=== PATIENT | female | born 1995 | race Caucasian/White ===

== ENCOUNTER 2022-01-02 11:47 | Outpatient (CLI) | payer OTHER, SELFPAY | END 2022-01-02 11:48 | disposition home or self-care (01) | LOC: NFLDREF 11:49 | PROVIDERS: Visit Provider Obstetrics & Gynecology | DX: L08.9 Local infection of the skin and subcutaneous tissue, unspecified (principal); T14.8XXA Other injury of unspecified body region, initial encounter | CPT/HCPCS: 87070; 87186 ==

== ENCOUNTER 2023-08-26 13:13 | Outpatient (CLI) | payer OTHER, SELFPAY ==
--- NOTE | 2023-08-26 13:00 | US_ITS ---
Patient: TYLER MICHELE Facility:?[facility] Patient ID:?[id number] Site Patient ID:?[id number]. Site :?[id number] Study:?US-OB Pelvis OB TV-08/26/2023 1:52:25 PM Ordering Physician:?EDGAR AJ Final Report: INDICATION: First trimester scan, establish dates. COMPARISON: None. TECHNIQUE: Real-time lord-scale imaging of the pelvis was performed. FINDINGS: Sonographic imaging demonstrates a single living intrauterine gestation. The embryo demonstrates a regular cardiac rate measuring 178 beats per minute. The embryo`s crown-rump length measurement of 1.9 cm corresponds to a gestational age of 8 weeks 3 days with a sonographic due date of 04/03/2024. There is a normal-appearing yolk sac. There are no gross abnormalities noted within the embryo at this early state of development. The gestational sac has a normal appearance. There is no evidence of a perigestational hemorrhage. The amount of fluid within the sac appears appropriate for gestational age. The cervix is closed. The myometrium appears normal. The ovaries are of normal size. Corpus luteal cyst right ovary. There are no suspicious fluid collections noted in the cul-de-sac. IMPRESSION: Normal first trimester OB ultrasound exam. Gestational age calculated at 8 weeks 3 days with a sonographic due date of 04/03/2024. No subchorionic hemorrhage. Dictated by Rio Skelton MD @ 08/27/2023 6:59:53 AM Signed by:?Rio Skelton MD @08/27/2023 6:59:53 AM (Electronic Signature)
== END 2023-08-26 13:14 | disposition home or self-care (01) ==
LOC: US 13:14
PROVIDERS: Visit Provider Registered Nurse
DX: Z34.91 Encounter for supervision of normal pregnancy, unspecified, first trimester (principal); Z3A.08 8 weeks gestation of pregnancy
CPT/HCPCS: 76817; 86703; 86706; 86803; 86850; 86900; 86901; 87086; 87340

== ENCOUNTER 2023-08-26 14:34 | Outpatient (CLI) | payer OTHER, SELFPAY | END 2023-08-26 14:35 | disposition home or self-care (01) | PROVIDERS: Visit Provider Registered Nurse | DX: Z34.91 Encounter for supervision of normal pregnancy, unspecified, first trimester (principal) | CPT/HCPCS: 86592; 86703; 86704; 86706; 86762; 86787; 86803; 86850; 86900; 86901; 87086; 87340 ==

== ENCOUNTER 2023-11-18 13:44 | Outpatient (CLI) | payer OTHER, SELFPAY ==
--- NOTE | 2023-11-18 14:00 | CRLHL7_ITS ---
For Patients: As a result of the 21st Century Cures Act, medical imaging exams and procedure reports are released immediately into your electronic medical record. You may view this report before your referring provider. If you have questions, please contact your health care provider. OB ULTRASOUND CLINICAL HISTORY: Supervision of normal . COMPARISON: 08/26/2023. LMP: 06/29/2023. JOAQUÍN by LMP: 04/04/2024. GA: 20 w, 2 d. FINDINGS: position: Transverse. Head to maternal right. Cervix: Visualized. Technique: Transabdominal. Length of closed cervix: 4.0 cm. Placenta/cord: Anterior. Technique: Transabdominal. Placenta tip to internal OS: 9.9cm. Umbilical Cord: 3-vessel cord. Placenta insertion: Eccentric, 2.1 cm. Amniotic Fluid: 5.0 cm SDP SURVEY: Observed Structures Cerebellum: Yes. 2.1 cm; 21 w 2 d. Cisterna Magna: Yes. 3.8 mm. Nuchal Fold: Yes. 4.4 mm. Lateral Ventricle: Yes. 7.8 mm. CSP: Yes. Midline Falx: Yes. Choroid Plexus: Yes. Spine: Yes. Stomach: Yes. Abd Cord Insertion: Yes. Urinary Bladder: Yes. Kidneys: Yes. Diaphragm: Yes. Nose/lips: Yes. Orbital view: Yes. Profile: Yes. Upper Extremities: Yes. Lower Extremities: Yes. Hands: Yes. Feet: Yes. Four-Chamber Heart: Yes. LVOT: Yes. RVOT: Yes. 3VV: Yes. 3VTV: Yes. BPD: 5.1 cm. 21 w 3 d, 88%. HC: 18.4 cm. 20 w 5 d, 63%. AC: 16.4 cm. 21 w 3 d, 80%. FL: 3.5 cm. 21 w 0 d, 65%. FL/AC: 21.20%. HC/AC Ratio: 1.12. Heart rate: 137 beats per minute. age by this US: 21 w 1 d. JOAQUÍN by this US: 03/29/2024. EFW: 404.11 g. Weight: 14 oz. Percentile by JOAQUÍN: 89%. IMPRESSION: 1. Measurements are consistent with dates. Good interval growth since prior exam. 2. Normal anatomic survey. Kenny Hernández M.D. Body/Diagnostic Radiologist [email or web address] GLEN/ledy villafana/Dictated by: Kenny Hernández MD @ 11/19/2023 9:50:00 AM (Electronically Signed)
== END 2023-11-18 13:45 | disposition home or self-care (01) ==
LOC: US 13:45
PROVIDERS: Visit Provider Advanced Practice Midwife
DX: Z34.92 Encounter for supervision of normal pregnancy, unspecified, second trimester (principal); Z3A.20 20 weeks gestation of pregnancy
CPT/HCPCS: 76805

== ENCOUNTER 2024-01-13 16:29 | Outpatient (CLI) | payer OTHER, SELFPAY | END 2024-01-13 16:30 | disposition home or self-care (01) | PROVIDERS: Visit Provider Physician Assistant | DX: Z34.93 Encounter for supervision of normal pregnancy, unspecified, third trimester (principal); Z3A.28 28 weeks gestation of pregnancy | CPT/HCPCS: 80074; 86592; 86704; 86706; 87340 ==

== ENCOUNTER 2024-01-26 11:52 | Outpatient (CLI) | payer MEDICAID, SELFPAY ==
[2024-01-26] VITALS (10 sets, daily range): BP systolic 110; BP diastolic 60; PULSE 91–124; O2SAT 97–99
[2024-01-26 13:03] LABS: Appearance Urine Clear (Clear); Bilirubin Urine Negative (Negative); Blood Urine 2+ (Negative); Color Urine Yellow (Yellow); Glucose Urine 3+ (Negative); Ketones Urine Negative (Negative); Leukocyte Esterase Urine Negative (Negative); Nitrite Urine Negative (Negative); Protein Urine Trace (Negative); Specific Gravity Urine 1.015 (1.000-1.030); Urobilinogen Urine 0.2 (0.2-1.0)
[2024-01-26 13:14] LABS: Bacteria Urine Few; RBC Urine 0-2 (0-2); Squamous Epithelial Cell Urine Moderate (None-Few)
--- NOTE | 2024-01-26 14:37 | PM.OBLDTN ---
OB - Triage/Final Diagnosis Visit Information Time Seen by Provider: 14:30 Date Seen: 01/26/24 Narrative: The patient is a 28 year old 3 para 2 at 30w1d weeks gestation by LMP consistent with first tri US, who presents with back pain rated 6/10 that is constant. No fever, dysuria, vaginitis, vaginal bleeding. She has not felt any contractions and baby has had good movement. Evaluation Laboratory results: Laboratory Tests 01/26/24 01/26/24 Range/Units Unknown 13:34 Urine Color Yellow (Yellow) Urine Appearance Clear (Clear) Urine pH 7.0 (5.0-8.5) Ur Specific [place] 1.015 (1.000-1.030) Urine Protein Trace A (Negative) Urine Glucose (UA) 3+ A (Negative) Urine Ketones Negative (Negative) Urine Blood 2+ A (Negative) Urine Nitrite Negative (Negative) Urine Bilirubin Negative (Negative) Urine Urobilinogen 0.2 (0.2-1.0) Ur Leukocyte Esterase Negative (Negative) Urine RBC 0-2 (0-2) Urine WBC 2-5 (0-5) Ur Squamous Epith Cells Moderate A (None-Few) Urine Bacteria Few A (None) Lab Acknowledgement Test Added Vital signs: Vital Signs - 24 hr 01/26/24 12:05 01/26/24 12:10 01/26/24 12:15 Pulse Rate Blood Pressure Pulse Oximetry 98 98 97 01/26/24 12:16 01/26/24 12:16 01/26/24 12:20 Pulse Rate 114 H Blood Pressure 110/60 Pulse Oximetry 97 01/26/24 12:25 01/26/24 12:30 01/26/24 12:35 Pulse Rate Blood Pressure Pulse Oximetry 98 98 99 01/26/24 12:40 01/26/24 12:45 Pulse Rate Blood Pressure Pulse Oximetry 98 97 Comments: Objective: Constitutional: Alert and oriented x3, No distress, coping well Lungs: Breasth sounds clear bilaterally Heart: Rhythm regular with no murmurs, rubs, or gallops. Vital signs stable, see nurse documentation Neg CVAT-Pt states it feels better to gently tap her back Abdomen: gravid, contractions not palpable, non-tender Cervix: deferred NST: 125 bpm/moderate variability/accelerations present/decelerations absent/contractions not palpable and not felt by patient Assessment: 28 at 30w1d weeks gestation?? complicated by:??Hx Labor type: Not in labor? Category 1 FHR pattern.??? Hematuria and low back pain P: While I cannot yet rule out kidney stones, exam reveals very likely musculoskeletal pain. Encouraged heat, tylenol 1000 mg q 6 hrs prn, massage, improved posture, use of lumbar pillow at work. To consider a PT referral for low back pain in . Has follow up in clinic this Friday, so will let provider know if she would desire this then or not. We can consider US/MRI if other signs of kidney stones prn. Signs and symtpoms to report reviewed. Dillan agrees with plan and has no further questions at this time. Final Diagnosis (1) H/O section: Status: Acute (2) Low back pain during : Status: Acute (3) : Status: Acute
--- NOTE | 2024-01-26 15:05 | PC.OBNST ---
NST Note NST Note Start: 01/26/24 12:07 Freq: ONCE Status: Active Protocol: Document 01/26/24 14:57 DAVE (Rec: 01/26/24 15:04 DAVE [id number]) NST Note 3 Para (# of births) 2 EDC 04/04/24 Gestational Age In Weeks & Days 30 Weeks & 1 Days Patient Presented with Complaint(s) of Pain If Pain, describe location Back pain Appropriate for Gestational Age Yes RN Suri Scott RN Date 01/26/24 Appropriate for Gestational Age Yes ITZEL Hess RNC Date 01/26/24 OB NST charge Yes Complete NST Note via Write Note Yes The provider's electronic signature indicates the NST is reactive/appropriate for gestational age. *Note to provider: If an addendum is required, open the patient's chart and click on the note under the Nurse/Allied Health tab.
== END 2024-01-26 14:53 | disposition home or self-care (01) ==
LOC: OB OUT 11:52 → OB 11:53
PROVIDERS: Visit Provider Midwife
DX: O26.899 Other specified pregnancy related conditions, unspecified trimester (principal); M54.50 Low back pain, unspecified; Z98.891 History of uterine scar from previous surgery; Z3A.30 30 weeks gestation of pregnancy; R31.9 Hematuria, unspecified
CPT/HCPCS: 59025; 81001; 81003; 87086; G0463

== ENCOUNTER 2024-02-26 09:22 | Outpatient (CLI) | payer MEDICAID, SELFPAY ==
[2024-02-26 09:41] VITALS: PULSE 119; O2SAT 100
[2024-02-26 09:46] VITALS: PULSE 118; O2SAT 100
[2024-02-26 09:47] VITALS: BP 115/63; PULSE 114
[2024-02-26 09:50] VITALS: RESP 18; TEMP 36.8
--- NOTE | 2024-02-26 10:09 | CRLHL7_ITS ---
For Patients: As a result of the Century Cures Act, medical imaging exams and procedure reports are released immediately into your electronic medical record. You may view this report before your referring provider. If you have questions, please contact your health care provider. Indication: View placenta R/O abruption ESTIMATED DATE OF DELIVERY (JOAQUÍN): 04/04/2024 Technique: Real-time sonographic images of the pelvis were obtained transabdominally using grayscale, color, and Doppler imaging. Comparison: 11/18/2023 Findings: Cervix: Not visualized. Placenta: Posterior left. No previa. : Number: Single. Position: Cephalic. Cardiac activity: 145 BPM. Amniotic fluid: Single deepest pocket 7.8 centimeter. Impression: 1. Single live intrauterine . 2. Amniotic fluid single deepest pocket measuring 7.8 centimeter. 3. Normal sonographic appearance of the posterior left placenta. Dictated by Sebas Pinto MD @ 02/26/2024 11:56:14 AM (Electronically Signed)
--- NOTE | 2024-02-26 10:09 | CRLHL7_ITS ---
For Patients: As a result of the Cures Act, medical imaging exams and procedure reports are released immediately into your electronic medical record. You may view this report before your referring provider. If you have questions, please contact your health care provider. Indication: Abdominal pain Right sided hydronephrosis without resolution post void Technique: Multiple transverse and longitudinal sonographic grayscale images of the abdomen were obtained, supplemented with color, power, and spectral Doppler imaging. Comparison: None. Findings: Pancreas: Visualized portions normal. Liver appearance: Normal. No biliary ductal dilation. Portal vein: Patent, hepatopetal flow. CBD: Not visualized. Gallbladder: Positive sonographic Eden sign. No gallbladder wall thickening or cholelithiasis. Right kidney length: 13.5 cm. Right kidney appearance: Moderate hydronephrosis without resolution postvoid. Left kidney length: 11.1 cm. Left kidney appearance: Normal. Spleen: 14.3 cm, homogeneous in appearance. Aorta: Normal. IVC: Normal. Other findings: None. Impression: 1. Moderate right hydronephrosis without resolution postvoid; this may be physiologic secondary to . 2. Positive sonographic Eden sign without gallbladder wall thickening or cholelithiasis. Acute cholecystitis is felt to be less likely. Dictated by Sebas Pinto MD @ 02/26/2024 11:53:36 AM (Electronically Signed)
[2024-02-26 10:21] LABS: Basophils Absolute Auto 0.01 K/uL (0.00-0.30); Basophils Percent Auto 0.1 % (0.0-3.0); Eosinophils Absolute Auto 0.05 K/uL (0.00-0.50); Eosinophils Percent Auto 0.5 % (0.0-7.0); Hematocrit 34.3 % (33.0-51.0); Hemoglobin* 10.7 gm/dL (12.0-16.0); Immature Granulocytes Abs Auto 0.06 K/uL (0.00-0.30); Immature Granulocytes Pct Auto 0.6 %; Lymphocytes Percent Auto 3.7 % (20-44); Mean Corpuscular HGB Conc 31 gm/dL (32-36); Mean Corpuscular Hemoglobin 24 pg (26-34); Mean Corpuscular Volume 77 fL (80-100); Monocytes Percent Auto 6.7 % (0.0-11.0); Neutrophils Percent Auto 88.4 % (42.0-72.0); Platelet Count* 140 K/uL (140-440); RDW Coefficient of Variation % 14.9 % (11.5-15.5); Red Blood Count 4.46 m/uL (4.00-5.20); White Blood Count* 10.28 K/uL (4.50-11.00)
[2024-02-26 10:26] LABS: Slide Review Reflex No
[2024-02-26 10:28] LABS: Appearance Urine Clear (Clear); Bilirubin Urine Negative (Negative); Blood Urine Negative (Negative); Color Urine Yellow (Yellow); Glucose Urine Trace (Negative); Ketones Urine Negative (Negative); Leukocyte Esterase Urine Negative (Negative); Nitrite Urine Negative (Negative); Protein Urine Negative (Negative); Urobilinogen Urine 0.2 (0.2-1.0)
[2024-02-26 10:35] LABS: Albumin* 3.4 g/dL (3.3-5.0); Chloride* 105 mmol/L (96-114); Potassium* 3.6 mmol/L (3.6-5.1); Sodium* 133 mmol/L (135-149)
[2024-02-26 10:37] LABS: Creatinine* 0.4 mg/dL (0.5-1.5); Estimated Glomerular Filt Rate 138 ml/min
[2024-02-26 10:38] LABS: Alanine Aminotransferase* 20 U/L (4-35); Alkaline Phosphatase* 89 U/L (40-150); Anion Gap 6 mEq/L (7-15); Aspartate Amino Transferase* 31 U/L (12-35); Bilirubin Total* 0.6 mg/dL (0.1-1.5); Blood Urea Nitrogen* 5 mg/dL (5-24); Carbon Dioxide* 22 mmol/L (20-32); Glucose* 95 mg/dL (60-115); Total Protein* 6.1 g/dL (6.0-8.3)
[2024-02-26 10:39] LABS: Calcium* 9.1 mg/dL (8.4-10.6)
[2024-02-26] MEDS: ACETAMINOPHEN 500 MG TABLET 1000 MG PO (11:22)
--- NOTE | 2024-02-26 12:45 | P.OBLDTN_ITS ---
OB - Triage/Final Diagnosis Visit Information Date of evaluation: 02/26/24 Narrative: Dillan is a 28 year old 3 para 2 at 34.4 weeks gestation by LMP, who presents with complaints of bilateral pelvic pain that radiates to her mid back. This pain started this morning around 0100 when she got up to go to the bathroom. It is constant that increases with movements and has not decreased in intensity during this time. She denies signs of infection, bleeding, or leaking fluids. Has had a headache that is now improved and appreciating good movement. She denies constipation and is urinating without difficulty. Ordered a UA/UC, CBC, CMP, and U/S. Labs reassuring with UC still pending. U/S normal and pelvic U/S did show hydronephrosis that radiology felt was likely physiological related. She was reassured with these results and reactive NST. Consulted with Dr. Corcoran who was in agreement that medication was not needed at this time. Encouraged hydration and precautions given. Encouraged reevaluation if unable to urinate, increased pain, body aches, ch ills, fever, nausea, vomiting, or additional concerning symptoms. She is agreeable to this plan. Contractions tracing on TOCO but pt denies feeling them as more than an occasional tightening and doesn't feel they have increased in frequency or intensity. Evaluation Laboratory results: Laboratory Tests 02/26/24 02/26/24 02/26/24 Range/Units 11:44 10:16 10:15 WBC 10.28 (4.50-11.00) K/uL RBC 4.46 (4.00-5.20) m/uL Hgb 10.7 L (12.0-16.0) gm/dL Hct 34.3 (33.0-51.0) % MCV 77 L (80-100) fL MCH 24 L (26-34) pg MCHC 31 L (32-36) gm/dL RDW Coeff of [place] 14.9 (11.5-15.5) % Plt Count 140 (140-440) K/uL Neut % (Auto) 88.4 H (42.0-72.0) % Lymph % (Auto) 3.7 L (20-44) % [place] % (Auto) 6.7 (0.0-11.0) % Eos % (Auto) 0.5 (0.0-7.0) % Baso % (Auto) 0.1 (0.0-3.0) % Neut # (Auto) 9.10 H (1.7-7.0) K/uL Lymph # (Auto) 0.40 L (0.90-2.90) K/uL [place] # (Auto) 0.70 (0.00-0.90) K/UL Eos # (Auto) 0.05 (0.00-0.50) K/uL Baso # (Auto) 0.01 (0.00-0.30) K/uL Abs Immat Gran (auto) 0.06 (0.00-0.30) K/uL Imm/Tot Granulo (auto) 0.6 % Sodium 133 L (135-149) mmol/L Potassium 3.6 (3.6-5.1) mmol/L Chloride 105 (96-114) mmol/L Carbon Dioxide 22 (20-32) mmol/L Anion Gap 6 L (7-15) mEq/L BUN 5 (5-24) mg/dL Creatinine 0.4 L (0.5-1.5) mg/dL Estimated GFR 138 ml/min Glucose 95 (60-115) mg/dL Calcium 9.1 (8.4-10.6) mg/dL Total Bilirubin 0.6 (0.1-1.5) mg/dL AST 31 (12-35) U/L ALT 20 (4-35) U/L Alkaline Phosphatase 89 (40-150) U/L Total Protein 6.1 (6.0-8.3) g/dL Albumin 3.4 (3.3-5.0) g/dL Urine Color Yellow (Yellow) Urine Appearance Clear (Clear) Urine pH 7.0 (5.0-8.5) Ur Specific [place] 1.010 (1.000-1.030) Urine Protein Negative (Negative) Urine Glucose (UA) Trace A (Negative) Urine Ketones Negative (Negative) Urine Blood Negative (Negative) Urine Nitrite Negative (Negative) Urine Bilirubin Negative (Negative) Urine Urobilinogen 0.2 (0.2-1.0) Ur Leukocyte Esterase Negative (Negative) Urine RBC Pending Urine WBC Pending Ur Squamous Epith Cells Pending Urine Bacteria Pending Lab Acknowledgement Test Added Vital signs: Vital Signs - 24 hr 02/26/24 09:41 02/26/24 09:46 02/26/24 09:47 Temperature Pulse Rate 114 H Respiratory Rate Blood Pressure 115/63 Pulse Oximetry 100 100 02/26/24 09:50 Temperature 98.3 F Pulse Rate Respiratory Rate 18 Blood Pressure Pulse Oximetry Fetus (Single) Heart Rate Baseline: 140 Intermediate Variability: Moderate (6-25) Monitor Accelerations: Present Monitor Decelerations: None
[2024-02-26 12:55] LABS: RBC Urine 0-2 (0-2); Squamous Epithelial Cell Urine Few (None-Few); WBC Urine 0-2 (0-5)
--- NOTE | 2024-02-26 13:14 | PC.OBNST ---
NST Note NST Note Start: 02/26/24 09:24 Freq: ONCE Status: Active Protocol: Document 02/26/24 13:11 ROSE (Rec: 02/26/24 13:14 ROSE [id number]) NST Note 3 Para (# of births) 2 EDC 04/04/24 Gestational Age In Weeks & Days 34 Weeks & 4 Days Patient Presented with Complaint(s) of Pain Other Complaints Pt. presents with sudden, constant in nature, onset of abdominal/back pain that began at 0130 when up to bathroom. Pt. states any use of abdominal muscles hurts, very achy and tender. She also reports difficulty taking deep breath as it is painful. Reactive Yes Appropriate for Gestational Age Yes ITZEL Mercado Date 02/26/24 Reactive Yes Appropriate for Gestational Age Yes ITZEL Dempsey Date 02/26/24 OB NST charge Yes Complete NST Note via Write Note Yes The provider's electronic signature indicates the NST is reactive/appropriate for gestational age. *Note to provider: If an addendum is required, open the patient's chart and click on the note under the Nurse/Allied Health tab.
== END 2024-02-26 13:05 | disposition home or self-care (01) ==
LOC: OB OUT 09:22 → OB 09:22
PROVIDERS: Visit Provider Advanced Practice Midwife
DX: O47.03 False labor before 37 completed weeks of gestation, third trimester (principal); Z3A.34 34 weeks gestation of pregnancy
CPT/HCPCS: 36415; 59025; 76700; 76815; 80053; 81003; 81015; 85025; G0463; A9270

== ENCOUNTER 2024-02-28 20:26 | Observation (INO) | payer MEDICAID, SELFPAY ==
[2024-02-28 20:50] VITALS: BP 120/70; PULSE 120; RESP 18; TEMP 36.9; O2SAT 98; BMI 26.9
[2024-02-28 21:31] LABS: Appearance Urine Clear (Clear); Bilirubin Urine Negative (Negative); Blood Urine Negative (Negative); Color Urine Yellow (Yellow); Glucose Urine Negative (Negative); Ketones Urine Negative (Negative); Leukocyte Esterase Urine Negative (Negative); Nitrite Urine Negative (Negative); Protein Urine Negative (Negative); Urobilinogen Urine 0.2 (0.2-1.0)
[2024-02-28 21:32] VITALS: BP 117/70; PULSE 113; RESP 18
[2024-02-28 21:46] LABS: RBC Urine 0-2 (0-2); WBC Urine 0-2 (0-5)
--- NOTE | 2024-02-28 21:47 | ED.GENADULT ---
HPI - General Adult General Chief complaint: Back Injury/Pain Stated complaint: 34 weeks , kidney pain Time Seen by Provider: 02/28/24 21:40 History of Present Illness HPI narrative: Seen earlier this week and was diagnosed with hydronephrosis. Pain continuing today; 7 out of 10 but patient cannot take deep breathes and body aches and had a fever . Has taken tylenol at 1900 28-year-old woman presenting to the emergency department with concern I think primarily of fever. She has been evaluated recently however in the setting of 34 week for right upper quadrant abdominal and flank pain. This pain has continued and admittedly is similar to what it was on evaluation 2 days ago. This afternoon though a few hours prior to arrival head evolution of a fever measured at 101.3 but then she says she is not sure if it was accurate. However she was chilled at that time and did take 1000 mg of acetaminophen. Subsequently was a little diaphoretic and overall improved now. She is not having more nausea. It does hurt to take a deep breath in the right upper abdomen; this also is not new. Transitioning also causes pain in this area. She is not having increased swelling in her legs or pain in her legs. No cough or cold symptoms otherwise. She is not feeling anything that would be consistent with contractions. Pulses noted to be elevated on arrival. Normal blood pressure. She has had an appendectomy. Recalls little later in conversation that daughter did show up in the room last night hot and with suspected fever. Otherwise no known exposures. Evaluation 2 days ago showed what was suspected to be physiologic hydronephrosis on this right side. Urinalysis was unremarkable as were transaminases. Abdominal pain Right sided hydronephrosis without resolution post void Technique: Multiple transverse and longitudinal sonographic grayscale images of the abdomen were obtained, supplemented with color, power, and spectral Doppler imaging. Comparison: None. Findings: Pancreas: Visualized portions normal. Liver appearance: Normal. No biliary ductal dilation. Portal vein: Patent, hepatopetal flow. CBD: Not visualized. Gallbladder: Positive sonographic Eden sign. No gallbladder wall thickening or cholelithiasis. Right kidney length: 13.5 cm. Right kidney appearance: Moderate hydronephrosis without resolution postvoid. Left kidney length: 11.1 cm. Left kidney appearance: Normal. Spleen: 14.3 cm, homogeneous in appearance. Aorta: Normal. IVC: Normal. Other findings: None. Impression: 1. Moderate right hydronephrosis without resolution postvoid; this may be physiologic secondary to . 2. Positive sonographic Eden sign without gallbladder wall thickening or cholelithiasis. Acute cholecystitis is felt to be less likely. Related Data Home Medications ?Medication ?Instructions ?Recorded ?Confirmed prenat.vits,josie,[id number] 1 tab PO QDAY 01/02/22 02/10/24 magnesium 200 mg tablet 200 mg PO QDAY 08/26/23 02/10/24 Allergies Allergy/AdvReac Type Severity Reaction Status Date / Time No Known Allergies Allergy Verified 02/10/24 18:05 Review of Systems Status of ROS: Reports: 6 or more systems reviewed and unremarkable except as noted in History and below [facility] Medical History Vaginal delivery ?O80 - Encounter for full-term uncomplicated delivery (ICD-10) Wound cellulitis ?L03.90 - Cellulitis, unspecified (ICD-10) Thick meconium stained amniotic fluid ?P96.83 - Meconium staining (ICD-10) Surgical History Hx of appendectomy ?Z90.49 - Acquired absence of other specified parts of digestive tract (ICD-10) Status post emergency section ?Z98.891 - History of uterine scar from previous surgery (ICD-10) Social History What is your current living situation?: I presently have a place to live Problems where you live: no known problems In the past 12 months, utilities in danger of being shut off: no In past 12 months, lack of transportation kept you from medical appts, meetings, work, or getting things needed for daily living: no How hard is it for you to pay for the very basics like food, housing, medical care, and heating: not very hard In the past 12 mos, have been you worried that your food would run out before you had money to buy more?: never true In the past 12 mos, the food you bought just didn't last and you didn't have money to buy more?: never true Smoking Status: Never smoker How often do you have a drink containing alcohol: never AUDIT-C Alcohol total score: 0 Non-prescribed substance use: denies use Within the last year, have you been humiliated or emotionally abused in other ways by your partner or ex-partner: no How often does anyone, including family, friends and others, physically hurt you: never How often does anyone, including family, friends and others, insult or talk down to you: never How often does anyone, including family, friends and others, threaten you with harm: never How often does anyone, including family, friends and others, scream or curse at you: never Little interest or pleasure in doing things: not at all Feeling down, depressed, or hopeless: not at all Exam Narrative: Exam Narrative: Pleasant. NAD. Breathing easily. Skin is warm and dry. I do not appreciate lower extremity edema in particular; maybe ankles are little puffy. She is well-perfused. Lungs are clear. Heart in tachycardic rate with regular rhythm. Abdomen is appropriately gravid. She is quite tender in the right upper quadrant and to percussion in the right flank. Does not have generalized tenderness over the abdomen. Const: Vital Signs, click to edit/add: Vital Signs - 24 hr 02/28/24 20:50 02/28/24 21:32 02/28/24 23:00 Temperature 98.4 F Pulse Rate [Left P ulse Oximeter] 120 H 113 H 105 H Respiratory Rate 18 18 16 Blood Pressure [Ri ght Upper Arm] 120/70 117/70 123/74 Pulse Oximetry 98 100 Oxygen Delivery Me thod Room Air Room Air Room Air Documenting provider has reviewed patient's vital signs: yes Course Vital Signs Vital signs: Initial Vital Signs Temperature 98.4 F 02/28/24 20:50 Temperature Source Temporal Artery Scan 02/28/24 20:50 Pulse Rate 120 H 02/28/24 20:50 Pulse Rhythm Regular 02/28/24 20:50 Respiratory Rate 18 02/28/24 20:50 Blood Pressure 120/70 02/28/24 20:50 Blood Pressure Mean 86 02/28/24 20:50 Blood Pressure Position Sitting 02/28/24 20:50 Pulse Oximetry 98 02/28/24 20:50 Oxygen Delivery Method Room Air 02/28/24 20:50 Vital Signs Temperature 98.4 F 02/28/24 20:50 Pulse Rate 120 H 02/28/24 20:50 Respiratory Rate 18 02/28/24 20:50 Blood Pressure 120/70 02/28/24 20:50 Pulse Oximetry 98 02/28/24 20:50 Oxygen Delivery Method Room Air 02/28/24 20:50 Temperature 98.4 F 02/28/24 20:50 Pulse Rate 105 H 02/28/24 23:00 Respiratory Rate 16 02/28/24 23:00 Blood Pressure 123/74 02/28/24 23:00 Pulse Oximetry 100 02/28/24 23:00 Oxygen Delivery Method Room Air 02/28/24 23:00 Medications Administered Medications: Discontinued Medications Generic Name Dose Route Start Last Admin Trade Name Ruma PRN Reason Stop Dose Admin Oxycodone HCl 7.5 mg 02/28/24 23:23 02/28/24 23:32 Oxycodone 5 Mg Tablet PO 02/28/24 23:24 7.5 mg ONCE ONE Administration Medical Decision Making MDM Narrative Medical decision making narrative: Discomfort does not appear to be uterine. I would not think endometritis though does have a fever. Differential still includes cholecystitis, I suppose perihepatic bleed, ureteral stone, pain related to hydronephrosis that is physiologic, urinary tract infection/pyelonephritis particularly in light of fever. Nonspecific viral illness or COVID, low right-sided pneumonia, pulmonary embolus? There was a question of preeclampsia but I do not see criteria for that in vitals. OB nursing here monitoring . Reviewed monitoring strips. Reassuring. Ordered initial labs. Would have concern about maintaining renal function. Would also evaluate for further evidence of cholecystitis perhaps. Did discuss this case with OB on-call who is familiar. Urinalysis was clear as was prior. I think less likely that there is a hidden ureteral stone. Does not appear to be a pyelonephritis either. Labs return with approximally doubled transaminases from 2 days ago. This is likely within normal limits but with location of pain and this fever I think it warrants a repeat limited abdominal ultrasound. Prior to this had discuss further pain management. Dillan is reluctant to treat for pain also noting that she already took a 1000 mg of acetaminophen. After longer discussion she does agree that perhaps opiate pain medication here might be beneficial. Ordered for 7.5 mg oxycodone Was not particularly helped with this oxycodone. Furthermore begins to feel chilled again. Preliminary opinion as discussed with compensation vice president during ultrasound in process notes continued hydronephrosis but no other inflammatory changes in the right upper abdomen Recheck of temperature of 100.7?. Would contemplate admission at this point. Have requested chest x-ray as well if this might be a right lower lung pneumonia the might be contributing some pleuritic discomfort in this recurrent fever. Will be discussing further with OB for potential admission. Medical Records Medical records reviewed: Yes I reviewed the patient's medical records Lab Data Lab results reviewed: Yes I reviewed the patient's lab results Labs: Lab Results 02/28/24 02/28/24 Range/Units 21:15 22:20 WBC 7.14 (4.50-11.00) K/uL RBC 4.52 (4.00-5.20) m/uL Hgb 10.9 L (12.0-16.0) gm/dL Hct 34.7 (33.0-51.0) % MCV 77 L (80-100) fL MCH 24 L (26-34) pg MCHC 31 L (32-36) gm/dL RDW Coeff of Chon 15.2 (11.5-15.5) % Plt Count 158 (140-440) K/uL Neut % (Auto) 85.2 H (42.0-72.0) % Lymph % (Auto) 6.2 L (20-44) % Nelson % (Auto) 7.6 (0.0-11.0) % Eos % (Auto) 0.1 (0.0-7.0) % Baso % (Auto) 0.1 (0.0-3.0) % Neut # (Auto) 6.10 (1.7-7.0) K/uL Lymph # (Auto) 0.40 L (0.90-2.90) K/uL Nelson # (Auto) 0.50 (0.00-0.90) K/UL Eos # (Auto) 0.01 (0.00-0.50) K/uL Baso # (Auto) 0.01 (0.00-0.30) K/uL Abs Immat Gran (auto) 0.06 (0.00-0.30) K/uL Imm/Tot Granulo (auto) 0.8 % Fibrinogen Cancelled Sodium 136 (135-149) mmol/L Potassium 3.7 (3.6-5.1) mmol/L Chloride 104 (96-114) mmol/L Carbon Dioxide 24 (20-32) mmol/L Anion Gap 8 (7-15) mEq/L BUN 9 (5-24) mg/dL Creatinine 0.4 L (0.5-1.5) mg/dL Estimated Creat Clear 188.42 Estimated GFR 138 ml/min Glucose 110 (60-115) mg/dL Uric Acid Cancelled Calcium 9.5 (8.4-10.6) mg/dL Total Bilirubin 0.5 (0.1-1.5) mg/dL Direct Bilirubin 0.3 (0.0-0.5) mg/dL AST 52 H (12-35) U/L ALT 41 H (4-35) U/L Alkaline Phosphatase 114 (40-150) U/L C-Reactive Protein 2.8 H (0.5-1.0) mg/dL Total Protein 6.4 (6.0-8.3) g/dL Albumin 3.5 (3.3-5.0) g/dL Urine Color Yellow (Yellow) Urine Appearance Clear (Clear) Urine pH 7.0 (5.0-8.5) Ur Specific [place] 1.010 (1.000-1.030) Urine Protein Negative (Negative) Urine Glucose (UA) Negative (Negative) Urine Ketones Negative (Negative) Urine Blood Negative (Negative) Urine Nitrite Negative (Negative) Urine Bilirubin Negative (Negative) Urine Urobilinogen 0.2 (0.2-1.0) Ur Leukocyte Esterase Negative (Negative) Urine RBC 0-2 (0-2) Urine WBC 0-2 (0-5) Ur Squamous Epith Cells None (None-Few) Urine Bacteria None (None) SARS-CoV-2 (PCR) Negative SARS-CoV-2 (Negative) Influenza Type A (PCR) Negative PCR FLU A (Negative) Influenza Type B (PCR) Negative PCR FLU B (Negative) Discharge Plan Discharge Clinical Impression: Fever, Hydronephrosis, Right upper quadrant abdominal pain Patient Disposition: Admitted As Observation Condition: Stable Prescriptions: No Action prenat.vits,josie,[id number] Tablet 1 tab PO QDAY magnesium 200 mg tablet 200 mg PO QDAY Follow Up/Referrals: Provider,Not a Local [Primary Care Provider] -
[2024-02-28 22:25] LABS: Basophils Absolute Auto 0.01 K/uL (0.00-0.30); Basophils Percent Auto 0.1 % (0.0-3.0); Eosinophils Absolute Auto 0.01 K/uL (0.00-0.50); Eosinophils Percent Auto 0.1 % (0.0-7.0); Hematocrit 34.7 % (33.0-51.0); Hemoglobin* 10.9 gm/dL (12.0-16.0); Immature Granulocytes Abs Auto 0.06 K/uL (0.00-0.30); Immature Granulocytes Pct Auto 0.8 %; Lymphocytes Percent Auto 6.2 % (20-44); Mean Corpuscular HGB Conc 31 gm/dL (32-36); Mean Corpuscular Hemoglobin 24 pg (26-34); Mean Corpuscular Volume 77 fL (80-100); Monocytes Percent Auto 7.6 % (0.0-11.0); Neutrophils Percent Auto 85.2 % (42.0-72.0); Platelet Count* 158 K/uL (140-440); RDW Coefficient of Variation % 15.2 % (11.5-15.5); Red Blood Count 4.52 m/uL (4.00-5.20); White Blood Count* 7.14 K/uL (4.50-11.00)
[2024-02-28 22:36] LABS: Slide Review Reflex No
--- NOTE | 2024-02-28 22:37 | PC.OBNST ---
NST Note NST Note Start: 02/28/24 22:32 Freq: ONCE Status: Active Protocol: Document 02/28/24 22:34 RUPA (Rec: 02/28/24 22:37 RUPA [id number]) NST Note 3 Para (# of births) 2 EDC 04/04/24 Gestational Age In Weeks & Days 34 Weeks & 6 Days Patient Presented with Complaint(s) of Pain,Other Other Complaints Fever, right upper quadrant and flank pain; recent diagnosis of Hydronephrosis. Reactive Yes ITZEL Rivera, ITZEL Date 02/28/24 Reactive Yes ITZEL Mcdaniels RN Date 02/28/24 OB NST charge Yes Complete NST Note via Write Note Yes The provider's electronic signature indicates the NST is reactive/appropriate for gestational age. *Note to provider: If an addendum is required, open the patient's chart and click on the note under the Nurse/Allied Health tab.
[2024-02-28 22:44] LABS: Albumin* 3.5 g/dL (3.3-5.0); Chloride* 104 mmol/L (96-114); Sodium* 136 mmol/L (135-149)
[2024-02-28 22:45] LABS: Potassium* 3.7 mmol/L (3.6-5.1)
--- OUTSIDE RECORDS SUMMARY | 2024-02-28 22:46 | XMS_ITS ---
Author Organization [facility] Address [address] [place] [address] Care Team Providers Care Specialty Person Name Role Phone Unavailable Unavailable Unavailable Surgery Details Not on file Complications Check Surgery Details section. Procedure Estimated Blood Loss Check Surgery Details section. Procedure Findings Check Surgery Details section. Procedure Specimens Taken Check Surgery Details section.
--- OUTSIDE RECORDS SUMMARY | 2024-02-28 22:46 | XMS_ITS | Referral Summary ---
Author Organization [facility] Address [address] [place] [address] Care Team Providers Care Tobacco Cloth Reclaimer Name Role Phone Elsewhere, Pcp Primary Care Provider Unavailabl e Source Comments Patient records contain information from all sites at [facility]. For routine questions regarding patient records, call [phone] during business hours, M-F 8:00 AM - 5:00 PM Central Time. Record requests for emergency care only can be directed to [phone] at any time.[facility] Allergies No known active allergies Medications Medication Sig Dispensed Refills Start Date End Date Status fluconazole (DIFLUCAN) 150 mg tablet Take 1 tablet (150 mg total) by mouth See Admin Instructions. Take one tab now. Repeat in 7 days if symptoms persist. 2 tablet 04/14/2023 Active Additional Information Patient not taking.Reported on 04/21/2023 terbinafine (LamISIL) 1 % cream Apply 1 Application topically 2 (two) times a day. Apply to affected areas. 30 g 04/21/2023 Active ketoconazole (NIZORAL) 2 % creamIndications:Ca ndidiasis Skin Apply 1 Application topically 2 (two) times a day. 60 g 04/25/2023 Active triamcinolone (KENALOG) 0.1 % creamIndications:Ca ndidiasis Skin Apply to affected area 1-2 times daily as needed. Avoid face and groin. 30 g 04/25/2023 Active Active Problems No known active problems Resolved Problems Problem Noted Date Diagnosed Date Resolved Date Uterine Size Date Discrepancy Third Trimester 08/13/19 19 09/28/2018 Encounter For Supervision Of Other Normal Unspecified Trimester 02/16/2018 09/29/19 19 Overview (08/13/2018): G1 Rubella equivocal, needs MMR A+ UTI (E coil) 1st trimester, asymptomatic, did not slat pickler abx rx until 15 wks. Treated with Macrobid. Normal anatomy survey. It's a girl! PSH: appy 30w6d US EFW 3 lbs 7 oz, MVP 3.9, cephalic 37w4d US EFW 7 lbs 3 oz, MVP 5.3, cephalic Immunizations Name Administration Dates Next Due DTP / Hib 12/01/1996, 6,03/29/1996,1995 DTaP (Infanrix, [employer]edia) 01/04/2008 DTaP / Hib 10/08/2000, 7,05/24/1996,1995,01/26/1996 H1N1 All Forms 07/05/2009 HepB, Unspecified 12/01/1996,06/28/1996,05/24/19 96 IPV 10/08/2000 MMR 12/12/2021,01/04/2008,12/01/1996 OPV 10/08/2000, 6,03/29/1996,1995 Td, (Adult) Unspecified 01/04/2008 Tdap 09/24/2021,06/10/2018,01/04/2008 TISHA 01/04/2008,05/13/2001 influenza trivalent LAIV ([place]) (2 years through 49 years) 04/10/2009 influenza vaccine quad (FLUZONE/FLUARIX) (6 months and older)(PF) 07/05/2009 Social History Tobacco Use Types Packs/Day Years Used Date Smoking Tobacco: Never Passive Smoke Exposure: Never Smokeless Tobacco: Never Tobacco Cessation:Counseling Given: No Alcohol Use Standard Drinks/Week Comments No 0 (1 standard drink = 0.6 oz pur e alcohol) prior:occ Humiliation, Afraid, Rape, and Kick questionnair e Answer Date Recorded Within the last year, have y ou been afraid of your partner or ex-partner? No 06/12/2021 Within the last year, have y ou been humiliated or emotionally abused in other ways by your partner or ex-partner? Patient declined 06/12/2021 Within the last year, have y ou been kicked, hit, slapped, or otherwise physically hurt by your partner or ex-partner? No 06/12/2021 Within the last year, have y ou been raped or forced to have any kind of sexual activity by your partner or ex-partner? No 06/12/2021 Social Connection and Isolat ion Panel [NHANES] Answer Date Recorded In a typical week, how many times do you talk on the phone with family, friends, or neighbors? More than three times a week 06/12/2021 How often do you get togethe r with friends or relatives? Twice a week 06/12/2021 How often do you attend chur ch or buddhism services? 1 to 4 times per year 06/12/2021 Do you belong to any clubs o r organizations such as anglican groups, unions, fraternal or athletic groups, or school groups? No 06/12/2021 How often do you attend meet ings of the clubs or organizations you belong to? Never 06/12/2021 Are you , , di vorced, , never , or living with a partner? Living with partner 06/12/2021 AUDIT-C Answer Date Recorded Q1: How often do you have a drink containing alc ohol? Never 06/12/2021 Average Number of Drinks Not on file 021 Frequency of Binge Drinking Not on file 05/24 Overall Financial Resource Strain (CARDIA) Answe r Date Recorded How hard is it for you to pa y for the very basics like food, housing, medical care, and heating? Not hard at all 06/12/2021 PHQ-2 Answer Date Recorded PHQ-2 Score 0 11/29/2021 [facility] [place] of Occupat ional Health - Occupational Stress Questionnaire Answer Date Recorded Do you feel stress - tense, restless, nervous, or anxious, or unable to sleep at night because your mind is troubled all the time - these days? Only a little 06/12/2021 Exercise Vital Sign Answer Date Recorde d On average, how many days pe r week do you engage in moderate to strenuous exercise (like a brisk walk)? 2 days 06/12/2021 On average, how many minutes do you engage in exercise at this level? 20 min 06/12/2021 Hunger Vital Sign Answer Date Recorded Within the past 12 months, y ou worried that your food would run out before you got the money to buy more. Never true 06/12/20 Within the past 12 months, t he food you bought just didn't last and you didn't have money to get more. Never true 06/12/2021 PRAPARE - Transportation Answer Date Re corded In the past 12 months, has l ack of transportation kept you from medical appointments or from getting medications? No 05/24 In the past 12 months, has l ack of transportation kept you from meetings, work, or from getting things needed for daily living? No 06/12/2021 Housing Stability Vital Sign Answer Galdino e Recorded In the last 12 months, was t here a time when you were not able to pay the mortgage or rent on time? No 06/12/2021 In the last 12 months, how many places have you lived? 2 06/12/2021 In the last 12 months, was t here a time when you did not have a steady place to sleep or slept in a half-way (including now)? No 06/12/2021 Nutrition Answer Date Recorded Nutrition: EVOO Fat Source No 06/12 On average, how many serving s of fruits and vegetables do you eat per day (serving size is equal to 1 cup or approximately the size of a tennis ball)? 0-1 06/12/2021 Dental Answer Date Recorded Dental: Regular Dentist Yes 04/19/20 Employment Answer Date Recorded Employment status Employed and actively working without restrictions 06/12/2021 Education Answer Date Recorded What is the highest level of school you have completed or the highest degree you have received? Some college, no degree 04/04/2021 Sex and Gender Information Value Date Recorded Sex Assigned at Female 05/06/2018 3:40 PM RADIOLOGIST PHYSICIAN Gender Identity Female 05/06/2018 3:40 PM RADIOLOGIST PHYSICIAN Sexual Orientation Straight 05/06/2018 3: 40 PM RADIOLOGIST PHYSICIAN Last Filed Vital Signs Vital Sign Reading Time Taken Comments Blood Pressure 114/72 04/25/2023 5:18 PM CDT Pulse 102 04/25/2023 5:18 PM CDT Temperature 36.7 ??C (98 ??F) 04/25/2023 5:18 PM CDT Respiratory Rate 20 04/25/2023 5:18 PM CDT Oxygen Saturation - - Inhaled Oxygen Concentration - - Weight 58.7 kg (129 lb 6.6 oz) 04/25/2023 5:18 P M CDT Height 165.4 cm (5' 5.12) 04/21/2023 12:46 PM C DT Body Mass Index 21.46 04/21/2023 12:46 PM CDT Plan of Treatment Not on file Procedures Procedure Name Priority Date/Time Associated Diagnosis Comments HPV WITH GENOTYPING, PCR, THINPREP Routine 05/11/2021 4:26 PM RADIOLOGIST PHYSICIAN HIV-1/-2 AG AND AB SCRN, PLASMA Routine 04/19/2021 10:48 AM CDT Encounter For Supervision Of Other Normal Unspecified Trimester CHLAMYDIA/GONORRHOE AE AMPLIFIED RNA Routine 02/16/2018 3:05 PM CDT Encounter For Supervision Of Other Normal Unspecified Trimester from Last 3 Months or Most Recently Relevant to Health Maintenance Results * HPV with Genotyping, PCR, ThinPrep (05/11/2021 4:26 PM RADIOLOGIST PHYSICIAN) HPV with Genotyping, ThinPrep, PCR Negative Negative 05/14/2021 5:50 PM RADIOLOGIST PHYSICIAN [facility] Comment: Negative for high risk HPV by nucleic acid amplification. ??The following high risk HPV types were not detected: 16, 18, 31, 33, 35, 39, 45, 51, 52, 56, 58, 59, 66, and 68 Varies 05/11/2021 4:26 PM RADIOLOGIST PHYSICIAN 05/14/2021 6:41 AM RADIOLOGIST PHYSICIAN Elfego Hidalgo M.D. LAB MICROBIOLOGY - GENERAL ORDERABLES [facility] [place] [address], [facility] in [place] [address] [place] [address] * HIV-1/-2 Ag and Ab Scrn, Plasma (04/19/2021 10:48 AM CDT) HIV Ag/Ab Scrn, P Negative Negative 04/20/2021 11:00 AM CDT [facility] Comment: Negative result does not rule out HIV infection. If exposure to HIV infection occurred <14 days ago, contact the laboratory to request addition of HIV-1 RNA detection / quantification test. HIV-1 p24 Ag Scrn, P Negative Negative 04/20/2021 11:00 AM CDT [facility] Comment: Negative result does not rule out HIV infection. If exposure to HIV infection occurred <14 days ago, contact the laboratory to request addition of HIV-1 RNA detection / quantification test. HIV-1 Ab Scrn, P Negative Negative 04/20/2021 11:00 AM CDT [facility] Comment: Negative result does not rule out HIV infection. If exposure to HIV infection occurred <14 days ago, contact the laboratory to request addition of HIV-1 RNA detection / quantification test. HIV-2 Ab Scrn, P Negative Negative 04/20/2021 11:00 AM CDT [facility] Comment: Negative result does not rule out HIV infection. If exposure to HIV infection occurred <14 days ago, contact the laboratory to request addition of HIV-1 RNA detection / quantification test. Blood (Blood, Venous) 04/19/2021 10:48 AM CDT 04/19/2021 3:10 PM CDT Elfego Hidalgo M.D. LAB MICROBIOLOGY - BLOOD ORDERABLES [facility] [address] [place] [id number], [facility] in [address] [address] * Chlamydia / gonorrhoeae Amplified RNA (02/16/2018 3:05 PM CDT) Source VAGINA 02/17/2018 11:14 AM CDT [facility] Chlamydia trachomatis amplified RNA Negative Negative 02/17/2018 11:14 AM CDT [facility] Comment: ----ADDITIONAL INFORMATION---- This report is intended for use in clinical monitoring and management of patients. It is not intended for use in medical-legal applications. Source VAGINA 02/17/2018 11:14 AM CDT [facility] Neisseria gonorrhoeae amplified RNA Negative Negative 02/17/2018 11:14 AM CDT [facility] Comment: ----ADDITIONAL INFORMATION---- This report is intended for use in clinical monitoring and management of patients. It is not intended for use in medical-legal applications. Varies (Vagina) 02/16/2018 3 :05 PM CDT 02/16/2018 11:23 PM CDT Matheus Merritt M.D. LAB MICROBIOLOGY - GENERAL ORDERABLES [facility] [address] [place] [address], [facility] from Last 3 Months or Most Recently Relevant to Health Maintenance Care Teams Tobacco Cloth Reclaimer Relationship Specialty Start Date End Date Elsewhere, Pcp PCP - General Internal Medicine 11/21/21
--- OUTSIDE RECORDS SUMMARY | 2024-02-28 22:46 | XMS_ITS | Clinical Summary ---
Author Organization [facility] Address [address] [place] [address] Care Team Providers Care Insurance Claims Processor Name Role Phone Elsewhere, Pcp Primary Care Provider Unavailabl e Source Comments Patient records contain information from all sites at [facility]. For routine questions regarding patient records, call [phone] during business hours, M-F 8:00 AM - 5:00 PM Central Time. 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 Treated with [...] quad (FLUZONE/FLUARIX) (6 months and older)(PF) 07/05/2009 Family History Medical History Relation Name Comments Depression Father Breast cancer Maternal Grandmother Cancer Paternal Grandfather Diabetes Paternal Grandfather Sleep apnea Paternal Grandfather Breast cancer Paternal Grandmother Relation Name Status Comments Father Maternal Grandmother Paternal Grandfather Paternal Grandmother Social History Tobacco Use Types Packs/Day Years [...] 06/12/2021 How often do you attend chur or amish services? 1 to 4 times per year 06/12/2021 Do you belong to any clubs o r organizations such as roman catholic groups, unions, fraternal or athletic groups, or [...] Answer Date Recorded PHQ-2 Score 0 11/29/2021 [facility] [place] of Occupat ional Health - Occupational Stress [...] place to sleep or slept in a penitentiary (including now)? No 06/12/2021 Nutrition Answer Date [...] Sex Assigned at Female 05/06/2018 3:40 PM ROLL SCALE WORKER Gender Identity Female 05/06/2018 3:40 PM ROLL SCALE WORKER Sexual Orientation Straight 05/06/2018 3: 40 PM ROLL SCALE WORKER Last Filed Vital Signs Vital Sign Reading [...] 04/21/2023 12:46 PM CDT Plan of Treatment Health Maintenance Due Date Last Done Comments Hepatitis C Screening 1995 Depression Screening (Annual PHQ-2) 06/23/2023 COVID-19 Vaccine ( season) 2024 Influenza Vaccine (#1) 2024 07/05/2009, 2008 Cervical Cancer Screening 05/11/20242020, 05/11/2021, 02/16/2018 DTaP,Tdap,and Td Vaccines (10 - Td or Tdap) 09/25/2031 09/24/2021, 06/10/2018, 01/04/2008, Additional history exists Hepatitis B Vaccines Completed 12/01/1996, 06/28/1996, 05/24/1996 Chlamydia and Gonorrhea Screening Discontinued 02/16/2018 HIV Screening Completed 04/19/2021, 02/16/2018 HPV Vaccines Aged Out No longer eligi ble based on patient's age to complete this topic Pneumococcal vaccine (0-64 years) Aged Out No longer eligible based on patient's age to complete this topic Procedures Procedure Name Priority Date/Time Associated Diagnosis Comments HPV WITH GENOTYPING, PCR, THINPREP Routine 05/11/2021 4:26 PM ROLL SCALE WORKER HIV-1/-2 AG AND AB SCRN, PLASMA Routine 04/19/2021 10:48 AM CDT Encounter For Supervision Of Other Normal Unspecified Trimester CHLAMYDIA/GONORRHOE AE AMPLIFIED RNA Routine 02/16/2018 3:05 PM CDT Encounter For Supervision Of Other Normal Unspecified Trimester from Last 3 Months or Most Recently Relevant to Health Maintenance Results * HPV with Genotyping, PCR, ThinPrep (05/11/2021 4:26 PM ROLL SCALE WORKER) HPV with Genotyping, ThinPrep, PCR Negative Negative 05/14/2021 5:50 PM ROLL SCALE WORKER [facility] Comment: Negative for high risk HPV by nucleic acid amplification. ??The following high risk HPV types were not detected: 16, 18, 31, 33, 35, 39, 45, 51, 52, 56, 58, 59, 66, and 68 Varies 05/11/2021 4:26 PM ROLL SCALE WORKER 05/14/2021 6:41 AM ROLL SCALE WORKER Elfego Hidalgo M.D. LAB MICROBIOLOGY - GENERAL ORDERABLES [facility] [address] [place] [address], [facility] [place] [address] * HIV-1/-2 Ag and Ab Scrn, Plasma [...] P Negative Negative 04/20/2021 11:00 AM CDT [facility] Comment: Negative result does not rule out HIV infection. If exposure to HIV infection occurred <14 days ago, contact the laboratory to request addition of HIV-1 RNA detection / quantification test. Blood (Blood, Venous) 04/19/2021 10:48 AM CDT 04/19/2021 3:10 PM CDT Elfego Hidalgo M.D. LAB MICROBIOLOGY - BLOOD ORDERABLES [facility] [address] [place] [address], [facility] in [address] [address] * Chlamydia / gonorrhoeae Amplified RNA (02/16/2018 3:05 PM CDT) Source VAGINA 02/17/2018 11:14 AM CDT [facility] Chlamydia trachomatis amplified RNA Negative Negative 02/17/2018 11:14 AM CDT [facility] Comment: ----ADDITIONAL INFORMATION---- This report is intended for use in clinical monitoring and management of patients. It is not intended for use in medical-legal applications. Source VAGINA 02/17/2018 11:14 AM CDT [facility] Neisseria gonorrhoeae amplified RNA Negative Negative 02/17/2018 11:14 AM CDT [facility] Comment: ----ADDITIONAL INFORMATION---- This report is intended for use in clinical monitoring and management of patients. It is not intended for use in medical-legal applications. Varies (Vagina) 02/16/2018 3 :05 PM CDT 02/16/2018 11:23 PM CDT Matheus Merritt M.D. LAB MICROBIOLOGY - GENERAL ORDERABLES [facility] [address] [place] [address], [facility] from Last 3 Months or Most Recently Relevant to Health Maintenance Care Teams Insurance Claims Processor Relationship Specialty Start Date End Date Elsewhere, Pcp PCP - General Internal Medicine 11/21/21
--- OUTSIDE RECORDS SUMMARY | 2024-02-28 22:46 | XMS_ITS | Clinical Summary ---
Author Organization [facility] Address [place], [place] [address] Care Team Providers Care Dialysis Technician Name Role Phone Elfego Hidalgo MD Primary Care Provide r Allergies No known active allergies Medications Medication Sig Dispensed Refills Start Date End Date Status vit/iron fum/folic ac ( 1 + 1 ORAL) Take by mouth. Active acetaminophen (TYLENOL EXTRA STRGTH) 500 mg tabletIndications: Vaginal delivery Take 2 tablets by mouth every 6 hours if needed. Max acetaminophen dose: 4000mg in 24 hrs. 60 tablet 08/22/2018 Active Breast Pump - PurchaseIndication s:Vaginal delivery Electric breast pump for home use. Gestation age at delivery: 52 weeks. Reason for need: Breast feeding. Length of need: 12 months 1 Device 08/22/2018 Active ibuprofen (ADVIL; MOTRIN) 600 mg tabletIndications: Vaginal delivery Take 1 tablet by mouth every 6 hours. Maximum of 3200 mg in 24 hours. 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 Treated with Macrobid. Normal anatomy survey. It's a girl! PSH: appy 30w6d US EFW 3 lbs 7 oz, MVP 3.9, cephalic 37w4d US EFW 7 lbs 3 oz, MVP 5.3, cephalic Resolved Problems Problem Noted Date Diagnosed Date Resolved Date Appendicitis, acute 10/09/2011 08/22/19 19 Social History Tobacco Use Types Packs/Day Years Used Date Smoking Tobacco: Never Smokeless Tobacco: Never Alcohol Use Standard Drinks/Week Comments No 0 (1 standard drink = 0.6 oz pur e alcohol) Sex and Gender Information Value Date Recorded Sex Assigned at Not on file Gender Identity Not on file Sexual Orientation Not on file Obstetrics History Para Term AB IAB SAB Ectopic Multiple Livin g Live Births 2 Date Outcome GA Total Labor Labor/2nd/3rd Weight Sex Type Anes PTL Elle A1 A5 Name Clin Last Filed Vital Signs Vital Sign Reading Time Taken Comments Blood Pressure 130/72 08/23/2018 10:00 AM APPLICATIONS PROGRAMMER ANALYST Pulse 60 08/23/2018 10:00 AM APPLICATIONS PROGRAMMER ANALYST Temperature 36.7 ??C (98 ??F) 08/23/2018 10:00 AM APPLICATIONS PROGRAMMER ANALYST Respiratory Rate 18 08/23/2018 10:00 AM APPLICATIONS PROGRAMMER ANALYST Oxygen Saturation 100% 08/21/2018 5:02 PM APPLICATIONS PROGRAMMER ANALYST Inhaled Oxygen Concentration - - Weight 71.8 kg (158 lb 4.6 oz) 08/21/2018 6:36 A M APPLICATIONS PROGRAMMER ANALYST Height 167.6 cm (5' 6) 08/21/2018 6:36 AM APPLICATIONS PROGRAMMER ANALYST Body Mass Index 25.55 08/21/2018 6:36 AM APPLICATIONS PROGRAMMER ANALYST Plan of Treatment Health Maintenance Due Date Last Done Comments Tdap 11/07/2006 Depression screening for age 12+ 2007 HIV for age 15-65 11/07/2010 BMI (ht and wt on same day) for age 18+ 11/07/2013 Hepatitis C screening for ag e 18-79 11/07/2013 Tetanus booster 2015 Pap test for age 21-65 11/07/2016 COVID-19 vaccine series (2022- season) 2024 Influenza for age 9-49 02/22/2024 Pneumococcal series for age 6-64 Aged Out No longer eligible based on patient's age to complete this topic Advance Directives * Full Code (Latest Code Status on File) Date Activated Date Inactivated Comments 08/21/2018 6:45 AM 08/23/2018 1:19 PM Question Answer Comments Code Status Discussion: Discussed * Full Code Date Activated Date Inactivated Comments 10/09/2011 7:44 AM 10/10/2011 12:34 AM Care Teams Dialysis Technician Relationship Specialty Start Date End Date Elfego Hidalgo MD [address] [facility] [place] [address] PCP - General Family Practice 11/14/21
[2024-02-28 22:47] LABS: Anion Gap 8 mEq/L (7-15); Aspartate Amino Transferase* 52 U/L (12-35); Bilirubin Direct* 0.3 mg/dL (0.0-0.5); Bilirubin Total* 0.5 mg/dL (0.1-1.5); Carbon Dioxide* 24 mmol/L (20-32); Creatinine* 0.4 mg/dL (0.5-1.5); Est. Creatinine Clearance* 188.42; Estimated Glomerular Filt Rate 138 ml/min; Total Protein* 6.4 g/dL (6.0-8.3)
[2024-02-28 22:48] LABS: Alanine Aminotransferase* 41 U/L (4-35); Alkaline Phosphatase* 114 U/L (40-150); Blood Urea Nitrogen* 9 mg/dL (5-24); Calcium* 9.5 mg/dL (8.4-10.6); Glucose* 110 mg/dL (60-115)
[2024-02-28 22:50] LABS: C Reactive Protein* 2.8 mg/dL (0.5-1.0)
[2024-02-28 23:00] VITALS: BP 123/74; PULSE 105; RESP 16; O2SAT 100
[2024-02-28 23:19] LABS: PCR FLU A Negative PCR FLU A (Negative); PCR FLU B Negative PCR FLU B (Negative); SARS PCR* Negative SARS-CoV-2 (Negative)
[2024-02-28] MEDS: OXYCODONE 5 MG TABLET 7.5 MG PO (23:32)
--- NOTE | 2024-02-29 00:04 | CRLHL7_ITS ---
For Patients: As a result of the Century Cures Act, medical imaging exams and procedure reports are released immediately into your electronic medical record. You may view this report before your referring provider. If you have questions, please contact your health care provider. INDICATION: Right upper quadrant pain. Transaminitis for TECHNIQUE: Limited right upper quadrant ultrasound examination of the abdomen was performed. Grayscale and color Doppler images were obtained. COMPARISON: Ultrasound abdomen 02/26/2024. FINDINGS: Liver: Normal in size and contour. The hepatic echotexture is normal. No suspicious hepatic masses. Gallbladder: Normal in size. No pericholecystic fluid. No cholelithiasis. Sonographic Eden sign was negative. Common bile duct: Measures 2 mm. Pancreas: Visualized portions unremarkable. Right kidney: Stable severe right sided hydronephrosis, likely due to patient`s underlying gravid status. Bladder: Bilateral ureteral jets visualized. Vascular: Visualized aorta and IVC are unremarkable. IMPRESSION: 1. No cholelithiasis or sonographic evidence of acute cholecystitis. Dictated by Ferdinand Pina MD @ 02/29/2024 1:41:51 AM (Electronically Signed)
--- NOTE | 2024-02-29 00:38 | CRLHL7_ITS ---
For Patients: As a result of the Century Cures Act, medical imaging exams and procedure reports are released immediately into your electronic medical record. You may view this report before your referring provider. If you have questions, please contact your health care provider. INDICATION: Right flank and chest pain. Fever. TECHNIQUE: Chest radiographs, 2 views. COMPARISON: None. FINDINGS: Cardiovascular/Mediastinum: Normal heart size. Unremarkable. Lungs: No focal consolidation. Airways: Trachea remains midline. Pleura: No pleural effusions or pneumothorax. Bones: No acute osseous abnormalities. Upper abdomen: Unremarkable. IMPRESSION: No acute cardiopulmonary process. Dictated by Ferdinand Pina MD @ 02/29/2024 1:07:29 AM (Electronically Signed)
[2024-02-29 02:05] VITALS: TEMP 37.4
[2024-02-29] MEDS: ACETAMINOPHEN 500 MG TABLET 1000 MG PO ×3 (02:05→14:24)
[2024-02-29 02:15] VITALS: BP 113/74; PULSE 112; RESP 18; O2SAT 99
[2024-02-29] MEDS: LACTATED RINGERS 1000 ML 1,000 ML 125 ML IV (02:15)
[2024-02-29 05:04] LABS: Lactate* 1.5 mmol/L (0.5-1.9)
[2024-02-29 06:20] VITALS: BP 109/69; PULSE 95; RESP 20; TEMP 37.2; O2SAT 97
[2024-02-29 07:19] LABS: Basophils Absolute Auto 0.01 K/uL (0.00-0.30); Basophils Percent Auto 0.2 % (0.0-3.0); Hematocrit 31.6 % (33.0-51.0); Hemoglobin* 9.9 gm/dL (12.0-16.0); Immature Granulocytes Abs Auto 0.04 K/uL (0.00-0.30); Immature Granulocytes Pct Auto 0.7 %; Mean Corpuscular HGB Conc 31 gm/dL (32-36); Mean Corpuscular Hemoglobin 24 pg (26-34); Mean Corpuscular Volume 76 fL (80-100); Neutrophils Percent Auto 75.1 % (42.0-72.0); Platelet Count* 143 K/uL (140-440); RDW Coefficient of Variation % 15.4 % (11.5-15.5); Red Blood Count 4.15 m/uL (4.00-5.20); White Blood Count* 5.55 K/uL (4.50-11.00)
[2024-02-29 07:35] LABS: Slide Review Reflex No
[2024-02-29 07:38] LABS: Chloride* 106 mmol/L (96-114); Potassium* 3.3 mmol/L (3.6-5.1); Sodium* 135 mmol/L (135-149)
[2024-02-29 07:40] LABS: Anion Gap 6 mEq/L (7-15); Bilirubin Total* 0.5 mg/dL (0.1-1.5); Carbon Dioxide* 23 mmol/L (20-32); Creatinine* 0.4 mg/dL (0.5-1.5); Est. Creatinine Clearance* 188.42; Estimated Glomerular Filt Rate 138 ml/min
[2024-02-29 07:41] LABS: Alanine Aminotransferase* 40 U/L (4-35); Alkaline Phosphatase* 114 U/L (40-150); Aspartate Amino Transferase* 61 U/L (12-35); Blood Urea Nitrogen* 5 mg/dL (5-24); Calcium* 8.5 mg/dL (8.4-10.6); Glucose* 86 mg/dL (60-115); Total Protein* 5.7 g/dL (6.0-8.3)
[2024-02-29 08:21] VITALS: BP 110/68; PULSE 101; PULSE 105; TEMP 36.8; O2SAT 99
--- NOTE | 2024-02-29 08:30 | CRLHL7_ITS ---
For Patients: As a result of the Century Cures Act, medical imaging exams and procedure reports are released immediately into your electronic medical record. You may view this report before your referring provider. If you have questions, please contact your health care provider. Indication: Fever of unknown origin, pain. Technique: CT pulmonary arteriography of the chest was performed following the administration of 95 mL Isovue 370. Comparison: Same day chest radiograph. Findings: Lungs and pleura: No focal consolidation. No pleural effusion or pneumothorax. Heart and great vessels: The heart is normal in size. No pericardial effusion. Aorta and pulmonary artery are normal in caliber. No evidence of right heart strain. Pulmonary artery opacification is adequate. No evidence of pulmonary embolism. Thyroid and mediastinum: Thyroid is normal. No mediastinal lymphadenopathy by size criteria. Chest wall: Unremarkable. Visualized upper abdomen: Questionable hydronephrosis in the upper pole of the right kidney. Bones: Unremarkable for age. Impression: 1. No evidence of pulmonary embolism. 2. No acute abnormality identified in the chest. 3. Partially visualized hydronephrosis in the upper pole of the right kidney. Please note that all CT scans at this facility use dose modulation, iterative reconstruction, and/or weight-based dosing when appropriate to reduce radiation dose to as low as reasonably achievable. Dictated by [place]ia Kiser MD @ 02/29/2024 9:37:01 AM (Electronically Signed)
--- NOTE | 2024-02-29 11:45 | PM.OBHPAP1 ---
OB - H&P; HPI Antepartum History of Present Illness Time Seen by Provider: 07:45 Date Seen: 02/29/24 Chief complaint: Abdominal pain Narrative: Dillan Novak is a 28 year old admitted for fever and RUQ pain. She is an established patient of the CNM service. is complicated by history of , hepB core Ab positive (antigen negative). Patient presented to care on 02/26/24 with abdominal pain, evaluated by Radha Gotti CNM. Workup at that time included normal CBC, complete metabolic panel, urinalysis and abdominal ultrasound. She did have evidence of mild right hydronephrosis, question of physiologic in versus possible stone. Pain at that time was described as bilateral pelvic pain that radiates to the mid back. Pain was constant and worsened with movement. Ultimately, patient was discharged to home with strict return precautions. She called again on 02/27 reporting a new fever and is recommended to present to the emergency department. There, she was initially afebrile with normal vital signs aside from tachycardia. She was describing right upper quadrant and back/flank pain primarily, but noted that this was unchanged across the last few days since her 02/25 triage visit. She notes she only presented to care given recommendation of her OB provider in the setting of fever and suspected rigors. She denied any nausea/vomiting, contractions, vaginal bleeding, leaking of fluids or abnormal vaginal discharge. Endorse active movement. Labs were obtained and notable for is no leukocytosis (WBC 7), normal hemoglobin, creatinine and electrolytes. There was evidence of new mild transaminitis, where abdominal ultrasound was repeated which again with negative for apparent hepatic, gallbladder or urologic pathology. Bilateral ureteral jets were visualized, UA was again normal. Patient did develop a fever throughout her course, were ultimately I recommended admission for observation to obstetric service. Chest x-ray was negative. Lactate was normal at 1.5, blood cultures were drawn. This morning, Dillan notes she is feeling essentially unchanged. She notes her pain is primarily in the right upper quadrant, flank and upper back. Pain is exacerbated by movement or lying on her right side. She notes she will have intermittent tightening, but this is nonpainful. She notes this has been present and unchanged over several weeks. Denies any vaginal bleeding, leaking of fluids, abnormal vaginal discharge, dysuria, urgency/frequency. Endorses active movement. She has a mild headache, improved with Tylenol. She denies any cough, nasal congestion, nausea/vomiting, bowel or bladder concerns. No known sick contacts. She did note her daughter felt warm overnight the other evening, but she did not take a temperature. She notes she has recently back to school, but has not had any other signs of illness. Repeat labs were obtained, where WBC were 5.55 (from 7.1), Hgb 9/9 (from 10.0) and platelets of 143 (from 158). Downtrending suspected to be dilutional due to IVF resuscitation overnight while patient was temporarily NPO. Cr was normal at 0.4, AST of 61 (from 52) and ALT of 40 (from 41). Specific Issues/Plans G 3 P20 1. History of delivery November 2021 due to nonreassuring heart tones and thick meconium. Desires . Consult with OBGYN to sign TOLAC consent: Reviewed and signed with Dr. Rubin 01/30/24 36-week growth ultrasound recommended. 2. Hep B core antibody positive. With negative antigen and antibody, this could be a false positive, could indicate occult infection, could be a resolved infection and levels have waned, or could be consistent with a mutant HBsAg strain not detectable by lab assay. Recommend repeat Hep B testing, desires at 28 week: Hepatitis-B core antibody remains positive. Hepatology referral: 3. Varicella non-immune. Rec. PP vaccine. Flu: Recommended. Declines Covid: Recommended. Not vaccinated, declines *Patient states that she is anti-vaccine. States she has been traumatized by needles in the past. Patient will consider a TDAP at her 32 wk visit. TDAP declined Meds Home Medications and Allergies Home Medications ?Medication ?Instructions ?Recorded ?Confirmed ?Type prenat.vits,josie,[id number] 1 tab PO QDAY 01/02/22 02/29/24 History magnesium 200 mg tablet 200 mg PO QDAY 08/26/23 02/29/24 History Allergies Allergy/AdvReac Type Severity Reaction Status Date / Time No Known Allergies Allergy Verified 02/29/24 09:00 OB - H&P: Exam Physical Exam: Vital signs: Temp Pulse Resp BP Pulse Ox O2 Del Method 98.3 F 105 H 20 110/68 99 Room Air 02/29/24 08:21 02/29/24 08:21 02/29/24 06:20 02/29/24 08:21 02/29/24 08:21 02/29/24 06:20 Narrative: General: Alert and oriented, in no acute distress. Lying in hospital bed, shifted somewhat to her left. Psych: Appropriate mood and affect Heart: Regular rate, mildly elevated. Regular rhythm. No rubs, murmurs or gallops. Lungs: Clear to posterior auscultation throughout. No wheezes, rales or crackles. Patient is hesitant to take a deep breath due to worsened pain. Abdomen: Gravid. No fundal or uterine tenderness. No tenderness on palpation of the left upper or left lower quadrant. Tenderness is noted greatest at the right upper quadrant to her flank, positive Carnett sign. No rebound or guarding. No right lower quadrant pain. Extremities: No significant extremity edema. Calves are soft, nontender and non erythematous. OB - Results Labs Labs: Short CBC 02/28/24 02/29/24 Range/Units 22:20 06:01 WBC 7.14 5.55 (4.50-11.00) K/uL Hgb 10.9 L 9.9 L (12.0-16.0) gm/dL Hct 34.7 31.6 L (33.0-51.0) % Plt Count 158 143 (140-440) K/uL BMP 02/28/24 02/29/24 22:20 06:01 Sodium 136 135 Potassium 3.7 3.3 L Chloride 104 106 Carbon Dioxide 24 23 BUN 9 5 Creatinine 0.4 L 0.4 L Glucose 110 86 Calcium 9.5 8.5 Liver Function 02/28/24 02/29/24 Range/Units 22:20 06:01 Total Bilirubin 0.5 0.5 (0.1-1.5) mg/dL Direct Bilirubin 0.3 (0.0-0.5) mg/dL AST 52 H 61 H (12-35) U/L ALT 41 H 40 H (4-35) U/L Alkaline Phosphatase 114 114 (40-150) U/L Albumin 3.5 3.0 L (3.3-5.0) g/dL Urine 02/28/24 Range/Units 21:15 Urine Color Yellow (Yellow) Urine Appearance Clear (Clear) Urine pH 7.0 (5.0-8.5) Ur Specific [place] 1.010 (1.000-1.030) Urine Protein Negative (Negative) Urine Glucose (UA) Negative (Negative) OB - A/P Antepartum Assessment and Plan (1) Fever, unknown origin: Status: Acute (2) Right upper quadrant abdominal pain: Status: Acute (3) Hydronephrosis: Status: Acute (4) Low back pain during : Status: Acute (5) Hepatitis B core antibody positive: Status: Acute (6) H/O section: Status: Acute (7) : Status: Acute Plan Dillan is a 28yo admitted at 35w0d GA for observation in the setting of fever and mild transaminitis. is complicated by history of , planning TOLAC and hep B core antibody positivity of unclear etiology. Previously, she has been counseled that her hep B core antibody positivity may be a false positive, could indicate occult infection, could be a resolved infection and levels have waned, or could be consistent with a mutant HBsAg strain not detectable by lab assay. She was recommended to have a hepatology consult, noted this was not completed as she temporarily left her insurance. Patient has had a T-max of 100.3 last at 0030. She remains on Tylenol, denies any fevers/chills. She notes persistent right upper quadrant/flank pain that is really unchanged over the last few days. Abdominal exam is notable for tenderness across this region, with no rebound or guarding. Carnett sign is positive. Patient notes her pain significantly worsens if she were to take a deep breath, where she has compensated by taking more shallow breathing. As a result of this she does feel mildly short of breath but has no chest pain. Her infectious evaluation to present has been unremarkable. She has no leukocytosis, platelets are within normal limits and CRP was only very mildly elevated. Urinalysis is entirely unremarkable. She has had 2 abdominal ultrasounds this week (last on admission) that are negative for hepatic, gallbladder or urologic anomalies aside from right hydronephrosis that is likely physiologic in (bilateral ureteral jets seen). Flu and COVID swabs are negative. She has had mildly increased transaminitis this morning via AST, ALT is stable. BG levels have been normal. VS are reassuring, no hypertension noted. No signs/symptoms of sepsis at this time. We discussed potential etiologies for her fever and right upper quadrant pain. Since her infectious workup has been entirely unremarkable thus far, with the presence of her pleuritic lower chest/upper abdominal pain and tachycardia in the state of I would recommend we rule out PE with chest CT with IV contrast this morning. In addition, I would recommend we proceed with an acute hepatitis panel and hep B viral load. Patient expressed understanding and was agreeable to plan. Of note, status has been entirely reassuring across interval NSTs every 4-6 hours. Since my 1st evaluation of the patient this morning, her CT of the chest has come back negative for PE or acute chest pathologies. They do note questionable hydronephrosis in the upper pole of the right kidney, but again her ultrasound yesterday was notable for bilateral ureteral jets. Hepatitis panel was drawn but is pending, this is not anticipated to return in the next 24 hours as it is a send out lab. I did call MFM at the [facility], consulted with Dr. Sandhu. I explained Dillan's presentation and evaluation to present. She feels her clinical course is most consistent with a viral etiology, leading to a potential hepatitis. She agreed with my plan for hepatitis panel/hep B DNA and recommended we evaluate for CMV and EBV as well. Fluid COVID have been previously excluded, though she recommended we add enterovirus testing via nasal swab. She and I both agree acute and life-threatening etiologies have been well excluded. Patient notes she is feeling a bit better on my repeat examination. She denies any ongoing fevers or chills. She notes her pain is absent when lying in bed, but is exacerbated with movement. She notes she would be unable to stay in the hospital overnight due to childcare/transportation to school tomorrow. I strongly recommend that we repeat her liver function tests and at on the previously recommended infectious testing, plan to do so at noon. If she remains clinically stable, and hopefully with stability/improvement of her transaminitis, I do feel it would be reasonable to discharge to home today with very close observation and strict return precautions. Would complete an additional NST prior to dismissal. Dr. Sandhu agrees this is reasonable. Plan to reassess following noon labs and repeat NST. Likely dismissal to home this evening with follow up in clinic with repeat labs tomorrow/Friday. Work note provided to excuse her Friday-Friday to allow for close interval follow up and due to pain exacerbated when sitting upright.
[2024-02-29 12:12] VITALS: BP 107/55; PULSE 83; TEMP 36.8
[2024-02-29 12:29] LABS: Basophils Percent Auto 0.2 % (0.0-3.0); Hematocrit 30.7 % (33.0-51.0); Hemoglobin* 9.7 gm/dL (12.0-16.0); Immature Granulocytes Pct Auto 0.9 %; Mean Corpuscular HGB Conc 32 gm/dL (32-36); Mean Corpuscular Hemoglobin 24 pg (26-34); Mean Corpuscular Volume 76 fL (80-100); Monocytes Percent Auto 14.5 % (0.0-11.0); Neutrophils Percent Auto 67.4 % (42.0-72.0); Platelet Count* 148 K/uL (140-440); RDW Coefficient of Variation % 15.4 % (11.5-15.5); Red Blood Count 4.04 m/uL (4.00-5.20); White Blood Count* 4.48 K/uL (4.50-11.00)
[2024-02-29 12:32] LABS: Slide Review Reflex No
[2024-02-29 12:49] LABS: Alanine Aminotransferase* 38 U/L (4-35); Alkaline Phosphatase* 110 U/L (40-150); Aspartate Amino Transferase* 59 U/L (12-35); Bilirubin Direct* 0.2 mg/dL (0.0-0.5); Bilirubin Total* 0.5 mg/dL (0.1-1.5); Total Protein* 5.6 g/dL (6.0-8.3)
--- NOTE | 2024-02-29 13:23 | W.PM.OB.MED ---
DS: Providers Provider Time Seen by Provider: 11:30 Date Seen: 02/29/24 Date of admission: 02/29/24 01:29 Primary care physician: Not a Local Provider Admitting Clinician: Scarlet Corcoran MD Attending Physician on discharge: Scarlet Corcoran MD DS: Diagnosis Discharge Diagnosis (1) Fever, unknown origin: Status: Acute (2) Right upper quadrant abdominal pain: Status: Acute (3) Hydronephrosis: Status: Acute (4) Low back pain during : Status: Acute (5) Hepatitis B core antibody positive: Status: Acute (6) H/O section: Status: Acute (7) : Status: Acute Discharge Plan Discharge Disposition: Home, Self-Care Date of Admission: 02/29/24 01:29 Primary Care Provider: Provider,Not a Local Condition: Stable Anticipated Discharge Date/Time: 02/29/24 13:30 Discharge Medications: Continued prenat.vits,josie,[id number] Tablet 1 tab PO QDAY Hold Instructions: Doctor's Order magnesium 200 mg tablet 200 mg PO QDAY Hold Instructions: Doctor's Order Discharge Orders: Discharge Order (Routine); Ordered 02/29/24 Ordered By: Scarlet Corcoran Follow Up Appointments: Provider,Not a Local [Primary Care Provider] - Forms: Drizly Info Instructions Hospital Course Course Hospital Course: Dillan was admitted for observation at 35w0d GA after presenting with fever and RUQ pain with new mild transaminitis. Please see my H&P from this morning and ED documentation for complete details. Briefly, she has had abdominal pain over the last 3 days - primarily localized to the RUQ and right flank/back. Pain is exacerbated with movement, resolves with rest and left uterine displacement. No nausea/vomiting, bowel or bladder concerns. No chest pain, but has some lower chest/upper abdominal pain exacerbated by taking a deep breath. Infectious evaluation has been negative, including serial labs, UA/UC, CXR and abdominal US. CT of the chest negative for PE. Last fever was 100.7 deg F at 0030 on 02/28. Denies ongoing fevers/chills sensation Flu/COVID swabs negative. Hepatitis (including HepB DNA), CMV, EMB and enterovirus testing pending. Labs were trended and have noted to stabilized. Patient desires discharge to home as she is feeling better and needs to be home for childcare purposes overnight and tomorrow morning. MFM was consulted and is in agreement with the above assessment/plan. She understands we do not have a clear etiology at this time. Our leading suspicion is for a viral etiology with associated hepatic inflammation/infection. Evaluation for acute/life threatening etiologies has been negative/reassuring. status has been reassuring throughout hospitalization. Very strict return precautions reinforced for worsening pain, new symptoms (nausea/vomiting, bowel/bladder, chest pain/dyspnea etc.) or recurrent fevers. Recommend she continue tylenol PRN for pain control and fever. Recommend close outpatient follow up with provider visit and repeat LFTs tomorrow or Friday. Orders placed. Start 65mg elemental iron daily or every other day for anemia. Labs Labs: Laboratory Tests 02/29/24 02/29/24 02/29/24 Range/Units 12:05 09:36 06:01 WBC 4.48 L 5.55 (4.50-11.00) K/uL RBC 4.04 4.15 (4.00-5.20) m/uL Hgb 9.7 L 9.9 L (12.0-16.0) gm/dL Hct 30.7 L 31.6 L (33.0-51.0) % MCV 76 L 76 L (80-100) fL MCH 24 L 24 L (26-34) pg MCHC 32 31 L (32-36) gm/dL RDW Coeff of [place] 15.4 15.4 (11.5-15.5) % Plt Count 148 143 (140-440) K/uL Neut % (Auto) 67.4 75.1 H (42.0-72.0) % Lymph % (Auto) 17.0 L 11.0 L (20-44) % [place] % (Auto) 14.5 H 13.0 H (0.0-11.0) % Eos % (Auto) 0.0 0.0 (0.0-7.0) % Baso % (Auto) 0.2 0.2 (0.0-3.0) % Neut # (Auto) 3.00 4.20 (1.7-7.0) K/uL Lymph # (Auto) 0.80 L 0.60 L (0.90-2.90) K/uL [place] # (Auto) 0.60 0.70 (0.00-0.90) K/UL Eos # (Auto) 0.00 0.00 (0.00-0.50) K/uL Baso # (Auto) 0.00 0.01 (0.00-0.30) K/uL Abs Immat Gran (auto) 0.00 0.04 (0.00-0.30) K/uL Imm/Tot Granulo (auto) 0.9 0.7 % Fibrinogen Sodium 135 (135-149) mmol/L Potassium 3.3 L (3.6-5.1) mmol/L Chloride 106 (96-114) mmol/L Carbon Dioxide 23 (20-32) mmol/L Anion Gap 6 L (7-15) mEq/L BUN 5 (5-24) mg/dL Creatinine 0.4 L (0.5-1.5) mg/dL Estimated Creat Clear 188.42 Estimated GFR 138 ml/min Glucose 86 (60-115) mg/dL Lactate (0.5-1.9) mmol/L Uric Acid Calcium 8.5 (8.4-10.6) mg/dL Total Bilirubin 0.5 0.5 (0.1-1.5) mg/dL Direct Bilirubin 0.2 (0.0-0.5) mg/dL AST 59 H 61 H (12-35) U/L ALT 38 H 40 H (4-35) U/L Alkaline Phosphatase 110 114 (40-150) U/L C-Reactive Protein (0.5-1.0) mg/dL Total Protein 5.6 L 5.7 L (6.0-8.3) g/dL Albumin 3.0 L 3.0 L (3.3-5.0) g/dL Urine Color (Yellow) Urine Appearance (Clear) Urine pH (5.0-8.5) Ur Specific [place] (1.000-1.030) Urine Protein (Negative) Urine Glucose (UA) (Negative) Urine Ketones (Negative) Urine Blood (Negative) Urine Nitrite (Negative) Urine Bilirubin (Negative) Urine Urobilinogen (0.2-1.0) Ur Leukocyte Esterase (Negative) Urine RBC (0-2) Urine WBC (0-5) Ur Squamous Epith Cells (None-Few) Urine Bacteria (None) SARS-CoV-2 (PCR) (Negative) CMV IgG Ab Pending CMV IgM Ab Pending CMV Qnt PCR IU/mL Pending CMV Qnt PCR log IU/mL Pending CMV Qnt PCR Interp Pending Enterovirus Source Pending Enterovirus (PCR) Pending EBV EA Restrict+Diffuse Pending Hepatitis A IgM Ab Pending Hep Bs Antigen Pending Hep B Core IgM Ab Pending Hep C Ab Index ([place]) Pending Hep C Ab Interp [place] Pending Hepatitis Interpret Pending Influenza Type A (PCR) (Negative) Influenza Type B (PCR) (Negative) 02/29/24 02/28/24 02/28/24 Range/Units 01:30 22:20 21:15 WBC 7.14 (4.50-11.00) K/uL RBC 4.52 (4.00-5.20) m/uL Hgb 10.9 L (12.0-16.0) gm/dL Hct 34.7 (33.0-51.0) % MCV 77 L (80-100) fL MCH 24 L (26-34) pg MCHC 31 L (32-36) gm/dL RDW Coeff of [place] 15.2 (11.5-15.5) % Plt Count 158 (140-440) K/uL Neut % (Auto) 85.2 H (42.0-72.0) % Lymph % (Auto) 6.2 L (20-44) % [place] % (Auto) 7.6 (0.0-11.0) % Eos % (Auto) 0.1 (0.0-7.0) % Baso % (Auto) 0.1 (0.0-3.0) % Neut # (Auto) 6.10 (1.7-7.0) K/uL Lymph # (Auto) 0.40 L (0.90-2.90) K/uL [place] # (Auto) 0.50 (0.00-0.90) K/UL Eos # (Auto) 0.01 (0.00-0.50) K/uL Baso # (Auto) 0.01 (0.00-0.30) K/uL Abs Immat Gran (auto) 0.06 (0.00-0.30) K/uL Imm/Tot Granulo (auto) 0.8 % Fibrinogen Cancelled Sodium 136 (135-149) mmol/L Potassium 3.7 (3.6-5.1) mmol/L Chloride 104 (96-114) mmol/L Carbon Dioxide 24 (20-32) mmol/L Anion Gap 8 (7-15) mEq/L BUN 9 (5-24) mg/dL Creatinine 0.4 L (0.5-1.5) mg/dL Estimated Creat Clear 188.42 Estimated GFR 138 ml/min Glucose 110 (60-115) mg/dL Lactate 1.5 (0.5-1.9) mmol/L Uric Acid Cancelled Calcium 9.5 (8.4-10.6) mg/dL Total Bilirubin 0.5 (0.1-1.5) mg/dL Direct Bilirubin 0.3 (0.0-0.5) mg/dL AST 52 H (12-35) U/L ALT 41 H (4-35) U/L Alkaline Phosphatase 114 (40-150) U/L C-Reactive Protein 2.8 H (0.5-1.0) mg/dL Total Protein 6.4 (6.0-8.3) g/dL Albumin 3.5 (3.3-5.0) g/dL Urine Color Yellow (Yellow) Urine Appearance Clear (Clear) Urine pH 7.0 (5.0-8.5) Ur Specific [place] 1.010 (1.000-1.030) Urine Protein Negative (Negative) Urine Glucose (UA) Negative (Negative) Urine Ketones Negative (Negative) Urine Blood Negative (Negative) Urine Nitrite Negative (Negative) Urine Bilirubin Negative (Negative) Urine Urobilinogen 0.2 (0.2-1.0) Ur Leukocyte Esterase Negative (Negative) Urine RBC 0-2 (0-2) Urine WBC 0-2 (0-5) Ur Squamous Epith Cells None (None-Few) Urine Bacteria None (None) SARS-CoV-2 (PCR) Negative SARS-CoV-2 (Negative) CMV IgG Ab CMV IgM Ab CMV Qnt PCR IU/mL CMV Qnt PCR log IU/mL CMV Qnt PCR Interp Enterovirus Source Enterovirus (PCR) EBV EA Restrict+Diffuse Hepatitis A IgM Ab Hep Bs Antigen Hep B Core IgM Ab Hep C Ab Index ([place]) Hep C Ab Interp [place] Hepatitis Interpret Influenza Type A (PCR) Negative PCR FLU A (Negative) Influenza Type B (PCR) Negative PCR FLU B (Negative) OB Problem List Additional Plan (1) Fever, unknown origin: Status: Acute (2) Right upper quadrant abdominal pain: Status: Acute (3) Hydronephrosis: Status: Acute (4) Low back pain during : Status: Acute (5) Hepatitis B core antibody positive: Status: Acute (6) H/O section: Status: Acute (7) : Status: Acute DS: Summary Vital Signs Vital Signs: Vital Signs Temp Pulse Pulse Pulse Resp BP BP 02/29/24 12:12 98.3 F 02/29/24 12:12 83 107/55 L 02/29/24 08:21 98.3 F 02/29/24 08:21 105 H 110/68 02/29/24 06:20 99.0 F 95 20 109/69 02/29/24 02:15 112 H 18 113/74 02/29/24 02:05 99.4 F 02/29/24 02:05 99.4 F 02/28/24 23:00 105 H 16 02/28/24 21:32 113 H 18 02/28/24 20:50 98.4 F 120 H 18 BP Pulse Ox O2 Del Method 02/29/24 12:12 02/29/24 12:12 02/29/24 08:21 02/29/24 08:21 99 02/29/24 06:20 97 Room Air 02/29/24 02:15 99 Room Air 02/29/24 02:05 02/29/24 02:05 02/28/24 23:00 123/74 100 Room Air 02/28/24 21:32 117/70 Room Air 02/28/24 20:50 120/70 98 Room Air
[2024-02-29] MEDS: METOCLOPRAMIDE 10 MG TABLET PO (14:25)
[2024-03-02 18:59] LABS: Hep A Ab, IgM Negative (Negative); Hep B Core Ab, IgM Negative (Negative); Hep B Surface Antigen Negative (Negative); Hep C Ab by CIA Index 0.08 IV; Hep C Ab by CIA Interp Negative (Negative)
[2024-03-03 00:35] LABS: CMV Qnt Plasma IU/mL Not Detected; CMV Qnt Plasma Interp Not Detected (Not Detected); CMV Qnt Plasma log IU/mL Not Detected log IU/mL
[2024-03-03 02:29] LABS: EBV Antibody-Early (D)Ag IgG <5.0 U/mL (0.0-10.9)
[2024-03-03 02:41] LABS: CMV Antibody IgM <8.0 AU/mL (<=29.9)
[2024-03-05 15:25] LABS: Enterovirus Source Plasma
== END 2024-02-29 15:50 | disposition home or self-care (01) ==
LOC: ED 02-29 00:58 → OB 02-29 03:29
PROVIDERS: Admitting Provider Obstetrics & Gynecology; Emergency Provider Family Medicine; PCP Obstetrics & Gynecology; Visit Provider Obstetrics & Gynecology
DX: O26.893 Other specified pregnancy related conditions, third trimester (principal); R50.9 Fever, unspecified; R10.11 Right upper quadrant pain; N13.30 Unspecified hydronephrosis; M54.50 Low back pain, unspecified; R74.01 Elevation of levels of liver transaminase levels; Z3A.35 35 weeks gestation of pregnancy
CPT/HCPCS: 36415; 59025; 71046; 71275; 76705; 80048; 80053; 80074; 80076; 81001; 83605; 84550; 85025; 85384; 86140; 86644; 86645; 86663; 87040; 87497; 87498; 87517; 87631; 96360; 96361; 99284; 99285; A9270; G0378; J7120; Q9967

== ENCOUNTER 2024-03-02 11:15 | Outpatient (CLI) | payer MEDICAID, SELFPAY ==
--- OUTSIDE RECORDS SUMMARY | 2024-03-06 15:30 | XMS_ITS ---
Author Organization [facility] Address [address] [place] [address] Care Team Providers Care Terminal Supervisor Name Role Phone Unavailable Unavailable Unavailable Surgery Details Not on file Complications Check Surgery Details section. Procedure Estimated Blood Loss Check Surgery Details section. Procedure Findings Check Surgery Details section. Procedure Specimens Taken Check Surgery Details section.
--- OUTSIDE RECORDS SUMMARY | 2024-03-06 15:30 | XMS_ITS | Clinical Summary ---
Author Organization [email or web address] Address [place], [place] [address] Care Team Providers Care Templer Head Name Role Phone Elfego Hidalgo MD Primary [...] (E coil) 1st trimester, asymptomatic, did not pickling solution maker abx rx until 15 wks. Treated with [...] Comments Blood Pressure 130/72 08/23/2018 10:00 AM MACHINE OPERATOR [employer]AGING Pulse 60 08/23/2018 10:00 AM MACHINE OPERATOR [employer]ING Temperature 36.7 ??C (98 ??F) 08/23/2018 10:00 AM MACHINE OPERATOR [employer]AGING Respiratory Rate 18 08/23/2018 10:00 AM MACHINE OPERATOR [employer]AGING Oxygen Saturation 100% 08/21/2018 5:02 PM MACHINE OPERATOR [employer]AGING Inhaled Oxygen Concentration - - Weight 71.8 kg (158 lb 4.6 oz) 08/21/2018 6:36 A M MACHINE [employer]PER[employer] Height 167.6 cm (5' 6) 08/21/2018 6:36 AM MACHINE OPERATOR [employer] Body Mass Index 25.55 08/21/2018 6:36 AM MACHINE OPERATOR [employer] Plan of Treatment Health Maintenance Due Date [...] 7:44 AM 10/10/2011 12:34 AM Care Teams Templer Head Relationship Specialty Start Date End Date Elfego Hidalgo MD [address] [facility] [place] [id number] PCP - General Family Practice 11/14/21
--- OUTSIDE RECORDS SUMMARY | 2024-03-06 15:30 | XMS_ITS | Clinical Summary ---
Author Organization [facility] Address [address] [place] [address] Care Team Providers Care Rubber Goods Finisher Name Role Phone Elsewhere, Pcp Primary Care Provider Unavailabl e Source Comments Patient records contain information from all sites at [facility]. For routine questions regarding patient records, call [phone] during business hours, M-F 8:00 AM - 5:00 PM Central Time. Record requests for emergency care only can be directed to [phone] at any time.[facility] Allergies No known active allergies Medications [...] (E coil) 1st trimester, asymptomatic, did not pickle cutter abx rx until 15 wks. Treated with [...] How often do you attend chur or restoration services? 1 to 4 times per year 06/12/2021 Do you belong to any clubs o r organizations such as jew groups, unions, fraternal or athletic groups, or [...] Answer Date Recorded PHQ-2 Score 0 11/29/2021 [facility] of Occupat ional Health - Occupational Stress [...] place to sleep or slept in a chcf (including now)? No 06/12/2021 Nutrition Answer Date [...] Sex Assigned at Female 05/06/2018 3:40 PM RESULTS ENGINEER Gender Identity Female 05/06/2018 3:40 PM RESULTS ENGINEER Sexual Orientation Straight 05/06/2018 3: 40 PM RESULTS ENGINEER Last Filed Vital Signs Vital Sign Reading [...] GENOTYPING, PCR, THINPREP Routine 05/11/2021 4:26 PM RESULTS ENGINEER HIV-1/-2 AG AND AB SCRN, PLASMA Routine 04/19/2021 10:48 AM CDT Encounter For Supervision Of Other Normal Unspecified Trimester CHLAMYDIA/GONORRHOE AE AMPLIFIED RNA Routine 02/16/2018 3:05 PM CDT Encounter For Supervision Of Other Normal Unspecified Trimester from Last 3 Months or Most Recently Relevant to Health Maintenance Results * HPV with Genotyping, PCR, ThinPrep (05/11/2021 4:26 PM RESULTS ENGINEER) HPV with Genotyping, ThinPrep, PCR Negative Negative 05/14/2021 5:50 PM RESULTS ENGINEER [facility] Comment: Negative for high risk HPV by nucleic acid amplification. ??The following high risk HPV types were not detected: 16, 18, 31, 33, 35, 39, 45, 51, 52, 56, 58, 59, 66, and 68 Varies 05/11/2021 4:26 PM RESULTS ENGINEER 05/14/2021 6:41 AM RESULTS ENGINEER Elfego Hidalgo M.D. LAB MICROBIOLOGY - GENERAL ORDERABLES [facility] [address] [place] [address], [facility] [place] [address] * HIV-1/-2 Ag and Ab Scrn, Plasma [...] P Negative Negative 04/20/2021 11:[address] [facility] Comment: Negative result does not rule out HIV infection. If exposure to HIV infection occurred <14 days ago, contact the laboratory to request addition of HIV-1 RNA detection / quantification test. Blood (Blood, Venous) 04/19/2021 10:48 AM CDT 04/19/2021 3:10 PM CDT Elfego Hidalgo M.D. LAB MICROBIOLOGY - BLOOD ORDERABLES [facility] [address] [place] [address], [facility] in [address] [address] * Chlamydia / gonorrhoeae Amplified RNA (02/16/2018 3:05 PM CDT) Source VAGINA 02/17/2018 11:14 AM CDT [facility] Chlamydia trachomatis amplified RNA Negative Negative 02/17/2018 11:14 AM CDT [facility] Comment: ----ADDITIONAL INFORMATION---- This report is intended for use in clinical monitoring and management of patients. It is not intended for use in medical-legal applications. Source VAGINA 02/17/2018 11:14 AM CDT [facility] Neisseria gonorrhoeae amplified RNA Negative Negative 02/17/2018 11:14 AM CDT [facility] Comment: ----ADDITIONAL INFORMATION---- This report is intended for use in clinical monitoring and management of patients. It is not intended for use in medical-legal applications. Varies (Vagina) 02/16/2018 3 :05 PM CDT 02/16/2018 11:23 PM CDT Matheus Merritt M.D. LAB MICROBIOLOGY - GENERAL ORDERABLES [facility] [address] [place] [address], [facility] from Last 3 Months or Most Recently Relevant to Health Maintenance Care Teams Rubber Goods Finisher Relationship Specialty Start Date End Date Elsewhere, Pcp PCP - General Internal Medicine 11/21/21
--- OUTSIDE RECORDS SUMMARY | 2024-03-06 15:30 | XMS_ITS | Referral Summary ---
Author Organization [facility] Address [address] [place] [address] Care Team Providers Care Information Systems Architect Name Role Phone Elsewhere, Pcp Primary Care Provider Unavailabl e Source Comments Patient records contain information from all sites at [facility]. For routine questions regarding patient records, call [phone] during business hours, M-F 8:00 AM - 5:00 PM Central Time. Record requests for emergency care only can be directed to [phone] at any time.[facility] Allergies No known active allergies Medications [...] (E coil) 1st trimester, asymptomatic, did not cotton picker abx rx until 15 wks. Treated [...] often do you attend chur ch or temple services? 1 to 4 times per year 06/12/2021 Do you belong to any clubs o r organizations such as sikh groups, unions, fraternal or athletic groups, or [...] Answer Date Recorded PHQ-2 Score 0 11/29/2021 [facility] of Occupat ional Health - Occupational Stress [...] place to sleep or slept in a mcc (including now)? No 06/12/2021 Nutrition Answer Date [...] Sex Assigned at Female 05/06/2018 3:40 PM CORROSION CONTROL SPECIALIST Gender Identity Female 05/06/2018 3:40 PM CORROSION CONTROL SPECIALIST Sexual Orientation Straight 05/06/2018 3: 40 PM CORROSION CONTROL SPECIALIST Last Filed Vital Signs Vital Sign Reading [...] GENOTYPING, PCR, THINPREP Routine 05/11/2021 4:26 PM CORROSION CONTROL SPECIALIST HIV-1/-2 AG AND AB SCRN, PLASMA Routine 04/19/2021 10:48 AM CDT Encounter For Supervision Of Other Normal Unspecified Trimester CHLAMYDIA/GONORRHOE AE AMPLIFIED RNA Routine 02/16/2018 3:05 PM CDT Encounter For Supervision Of Other Normal Unspecified Trimester from Last 3 Months or Most Recently Relevant to Health Maintenance Results * HPV with Genotyping, PCR, ThinPrep (05/11/2021 4:26 PM CORROSION CONTROL SPECIALIST) HPV with Genotyping, ThinPrep, PCR Negative Negative 05/14/2021 5:50 PM CORROSION CONTROL SPECIALIST [facility] Comment: Negative for high risk HPV by nucleic acid amplification. ??The following high risk HPV types were not detected: 16, 18, 31, 33, 35, 39, 45, 51, 52, 56, 58, 59, 66, and 68 Varies 05/11/2021 4:26 PM CORROSION CONTROL SPECIALIST 05/14/2021 6:41 AM CORROSION CONTROL SPECIALIST Elfego Hidalgo M.D. LAB MICROBIOLOGY - GENERAL ORDERABLES [facility] [place] [address], [facility] in [place] [address] [place] [address] * HIV-1/-2 Ag and Ab Scrn, Plasma [...] Hidalgo M.D. LAB MICROBIOLOGY - BLOOD ORDERABLES [facility] [address] [place] [address], [facility] in [address] [address] * Chlamydia / gonorrhoeae Amplified RNA (02/16/2018 3:05 PM CDT) Source VAGINA 02/17/2018 11:14 AM CDT [facility] Chlamydia trachomatis amplified RNA Negative Negative 02/17/2018 11:14 AM CDT [facility] Comment: ----ADDITIONAL INFORMATION---- This report is intended for use in clinical monitoring and management of patients. It is not intended for use in medical-legal applications. Source VAGINA 02/17/2018 11:14 AM CDT [facility] Neisseria gonorrhoeae amplified RNA Negative Negative 02/17/2018 11:14 AM CDT [facility] Comment: ----ADDITIONAL INFORMATION---- This report is intended for use in clinical monitoring and management of patients. It is not intended for use in medical-legal applications. Varies (Vagina) 02/16/2018 3 :05 PM CDT 02/16/2018 11:23 PM CDT Matheus Merritt M.D. LAB MICROBIOLOGY - GENERAL ORDERABLES [facility] [address] [place] [address], [facility] from Last 3 Months or Most Recently Relevant to Health Maintenance Care Teams Information Systems Architect Relationship Specialty Start Date End Date Elsewhere, Pcp PCP - General Internal Medicine 11/21/21
== END 2024-03-02 11:16 | disposition home or self-care (01) ==
LOC: NFLDREF 03-06 15:28
PROVIDERS: Visit Provider Obstetrics & Gynecology
DX: R10.11 Right upper quadrant pain (principal); N13.30 Unspecified hydronephrosis
CPT/HCPCS: 80076

== ENCOUNTER 2024-03-09 16:07 | Outpatient (CLI) | payer MEDICAID, SELFPAY ==
--- NOTE | 2024-03-09 16:00 | CRLHL7_ITS ---
For Patients: As a result of the 21st Century Cures Act, medical imaging exams and procedure reports are released immediately into your electronic medical record. You may view this report before your referring provider. If you have questions, please contact your health care provider. INDICATION: hx of c/s, desiring TOLAC TECHNIQUE: Real time lord scale imaging of the fetus was performed. COMPARISON: 02/26/2024 FINDINGS: Sonographic imaging demonstrates a single living intrauterine gestation. Fetus demonstrates a regular cardiac rate of 131 beats per minute. Fetus has a vertex position. The placenta lies along the left wall. Amniotic fluid volume single deepest pocket of 8.6 cm. RAMILA 31.1 cm. The estimated weight is 3711gm which lies at the greater than 97th %. On the prior OB ultrasound dated 11/18/2023 the estimated weight was at the 89th percentile. BPD, HC, AC greater than 97th percentile. FL 36th percentile. The fetus was active and demonstrated normal breathing movements. There was normal flexion and extension of the trunk and extremities. IMPRESSION: Normal biophysical profile score 8/8. Sonographic gestational age 39 weeks 1 day and sonographic due date 03/15/2024. Sonographic age 20 days ahead of the clinical age. Estimated weight greater than 97th percentile. Abdominal circumference, head circumference and biparietal diameter greater than 97th percentile. SDP 8.6 cm. RAMILA 31.1 cm. Dictated by Rio Skelton MD @ 03/10/2024 12:12:30 PM (Electronically Signed)
--- OUTSIDE RECORDS SUMMARY | 2024-03-09 16:09 | XMS_ITS | Referral Summary ---
Author Organization [facility] Address [address] [place] [address] Care Team Providers Care Label Maker Name Role Phone Elsewhere, Pcp Primary Care Provider Unavailabl e Source Comments Patient records contain information from all sites at [facility]. For routine questions regarding patient records, call [phone] during business hours, M-F 8:00 AM - 5:00 PM Central Time. Record requests for emergency care only can be directed to [phone] at any time.[facility] Allergies No known active allergies Medications [...] coil) 1st trimester, asymptomatic, did not pickle processor abx rx until 15 wks. Treated with [...] often do you attend chur ch or muslim services? 1 to 4 times per year 06/12/2021 Do you belong to any clubs o r organizations such as taoism groups, unions, fraternal or athletic groups, or [...] Answer Date Recorded PHQ-2 Score 0 11/29/2021 [facility] [place] of Occupat ional Health - Occupational Stress [...] place to sleep or slept in a alf (including now)? No 06/12/2021 Nutrition Answer Date [...] Sex Assigned at Female 05/06/2018 3:40 PM COPY SUPERVISOR Gender Identity Female 05/06/2018 3:40 PM COPY SUPERVISOR Sexual Orientation Straight 05/06/2018 3: 40 PM COPY SUPERVISOR Last Filed Vital Signs Vital Sign Reading [...] GENOTYPING, PCR, THINPREP Routine 05/11/2021 4:26 PM COPY SUPERVISOR HIV-1/-2 AG AND AB SCRN, PLASMA Routine 04/19/2021 10:48 AM CDT Encounter For Supervision Of Other Normal Unspecified Trimester CHLAMYDIA/GONORRHOE AE AMPLIFIED RNA Routine 02/16/2018 3:05 PM CDT Encounter For Supervision Of Other Normal Unspecified Trimester from Last 3 Months or Most Recently Relevant to Health Maintenance Results * HPV with Genotyping, PCR, ThinPrep (05/11/2021 4:26 PM COPY SUPERVISOR) HPV with Genotyping, ThinPrep, PCR Negative Negative 05/14/2021 5:50 PM COPY SUPERVISOR [facility] Comment: Negative for high risk HPV by nucleic acid amplification. ??The following high risk HPV types were not detected: 16, 18, 31, 33, 35, 39, 45, 51, 52, 56, 58, 59, 66, and 68 Varies 05/11/2021 4:26 PM COPY SUPERVISOR 05/14/2021 6:41 AM COPY SUPERVISOR Elfego Hidalgo M.D. LAB MICROBIOLOGY - GENERAL ORDERABLES [facility] [place] [address], [facility] in [place] [address] [place] [address] * HIV-1/-2 Ag and Ab Scrn, Plasma [...] Hidalgo M.D. LAB MICROBIOLOGY - BLOOD ORDERABLES [facility] [address] [place] [address], [facility] in [address] [address] * Chlamydia / gonorrhoeae Amplified RNA (02/16/2018 3:05 PM CDT) Source VAGINA 02/17/2018 11:14 AM CDT [facility] Chlamydia trachomatis amplified RNA Negative Negative 02/17/2018 11:14 AM CDT [facility] Comment: ----ADDITIONAL INFORMATION---- This report is intended for use in clinical monitoring and management of patients. It is not intended for use in medical-legal applications. Source VAGINA 02/17/2018 11:14 AM CDT [facility] Neisseria gonorrhoeae amplified RNA Negative Negative 02/17/2018 11:14 AM CDT [facility] Comment: ----ADDITIONAL INFORMATION---- This report is intended for use in clinical monitoring and management of patients. It is not intended for use in medical-legal applications. Varies (Vagina) 02/16/2018 3 :05 PM CDT 02/16/2018 11:23 PM CDT Matheus Merritt M.D. LAB MICROBIOLOGY - GENERAL ORDERABLES [facility] [address] [place] [address], [facility] from Last 3 Months or Most Recently Relevant to Health Maintenance Care Teams Label Maker Relationship Specialty Start Date End Date Elsewhere, Pcp PCP - General Internal Medicine 11/21/21
--- OUTSIDE RECORDS SUMMARY | 2024-03-09 16:09 | XMS_ITS | Clinical Summary ---
Author Organization [facility] Address [address] [place] [address] Care Team Providers Care Extras Casting Director Name Role Phone Elsewhere, Pcp Primary Care Provider Unavailabl e Source Comments Patient records contain information from all sites at [facility]. For routine questions regarding patient records, call [phone] during business hours, M-F 8:00 AM - 5:00 PM Central Time. Record requests for emergency care only can be directed to [phone] at any time.[facility] Allergies No known active allergies Medications Medication [...] coil) 1st trimester, asymptomatic, did not pickle maker abx rx until 15 wks. Treated [...] How often do you attend chur or synagogue services? 1 to 4 times per year 06/12/2021 Do you belong to any clubs o r organizations such as scientologist groups, unions, fraternal or athletic groups, or [...] Answer Date Recorded PHQ-2 Score 0 11/29/2021 [facility] [place] of Occupat ional Health - Occupational Stress [...] Sex Assigned at Female 05/06/2018 3:40 PM MEDICAL LABORATORY TECHNICAL OFFICER Gender Identity Female 05/06/2018 3:40 PM MEDICAL LABORATORY TECHNICAL OFFICER Sexual Orientation Straight 05/06/2018 3: 40 PM MEDICAL LABORATORY TECHNICAL OFFICER Last Filed Vital Signs Vital Sign Reading [...] GENOTYPING, PCR, THINPREP Routine 05/11/2021 4:26 PM MEDICAL LABORATORY TECHNICAL OFFICER HIV-1/-2 AG AND AB SCRN, PLASMA Routine 04/19/2021 10:48 AM CDT Encounter For Supervision Of Other Normal Unspecified Trimester CHLAMYDIA/GONORRHOE AE AMPLIFIED RNA Routine 02/16/2018 3:05 PM CDT Encounter For Supervision Of Other Normal Unspecified Trimester from Last 3 Months or Most Recently Relevant to Health Maintenance Results * HPV with Genotyping, PCR, ThinPrep (05/11/2021 4:26 PM MEDICAL LABORATORY TECHNICAL OFFICER) HPV with Genotyping, ThinPrep, PCR Negative Negative 05/14/2021 5:50 PM MEDICAL LABORATORY TECHNICAL OFFICER [facility] Comment: Negative for high risk HPV by nucleic acid amplification. ??The following high risk HPV types were not detected: 16, 18, 31, 33, 35, 39, 45, 51, 52, 56, 58, 59, 66, and 68 Varies 05/11/2021 4:26 PM MEDICAL LABORATORY TECHNICAL OFFICER 05/14/2021 6:41 AM MEDICAL LABORATORY TECHNICAL OFFICER Elfego Hidalgo M.D. LAB MICROBIOLOGY - GENERAL ORDERABLES [facility] [address] [place] [address], [facility] [place] [address] * HIV-1/-2 Ag and Ab Scrn, Plasma [...] P Negative Negative 04/20/2021 11:00 AM CDT [facility] Comment: Negative result does not rule out HIV infection. If exposure to HIV infection occurred <14 days ago, contact the laboratory to request addition of HIV-1 RNA detection / quantification test. Blood (Blood, Venous) 04/19/2021 10:48 AM CDT 04/19/2021 3:10 PM CDT Elfego Hidalgo M.D. LAB MICROBIOLOGY - BLOOD ORDERABLES [facility] [address] [place] [address], [facility] in [address] [address] * Chlamydia / gonorrhoeae Amplified RNA (02/16/2018 3:05 PM CDT) Source VAGINA 02/17/2018 11:14 AM CDT [facility] Chlamydia trachomatis amplified RNA Negative Negative 02/17/2018 11:14 AM CDT [facility] Comment: ----ADDITIONAL INFORMATION---- This report is intended for use in clinical monitoring and management of patients. It is not intended for use in medical-legal applications. Source VAGINA 02/17/2018 11:14 AM CDT [facility] Neisseria gonorrhoeae amplified RNA Negative Negative 02/17/2018 11:14 AM CDT [facility] Comment: ----ADDITIONAL INFORMATION---- This report is intended for use in clinical monitoring and management of patients. It is not intended for use in medical-legal applications. Varies (Vagina) 02/16/2018 3 :05 PM CDT 02/16/2018 11:23 PM CDT Matheus Merritt M.D. LAB MICROBIOLOGY - GENERAL ORDERABLES [facility] [address] [place] [address], [facility] from Last 3 Months or Most Recently Relevant to Health Maintenance Care Teams Extras Casting Director Relationship Specialty Start Date End Date Elsewhere, Pcp PCP - General Internal Medicine 11/21/21
--- OUTSIDE RECORDS SUMMARY | 2024-03-09 16:10 | XMS_ITS ---
Author Organization [facility] Address [address] [place] [address] Care Team Providers Care Transcribing Operator Head Name Role Phone Unavailable Unavailable Unavailable Surgery Details Not on file Complications Check Surgery Details section. Procedure Estimated Blood Loss Check Surgery Details section. Procedure Findings Check Surgery Details section. Procedure Specimens Taken Check Surgery Details section.
--- OUTSIDE RECORDS SUMMARY | 2024-03-09 16:10 | XMS_ITS | Clinical Summary ---
Author Organization [facility] Address [place], [place] [address] Care Team Providers Care Trampoline Team Coach Name Role Phone Elfego Hidalgo MD Primary [...] (E coil) 1st trimester, asymptomatic, did not vegetable picker abx rx until 15 wks. Treated [...] Comments Blood Pressure 130/72 08/23/2018 10:00 AM GUEST SERVICE REPRESENTATIVE Pulse 60 08/23/2018 10:00 AM GUEST SERVICE REPRESENTATIVE Temperature 36.7 ??C (98 ??F) 08/23/2018 10:00 AM GUEST SERVICE REPRESENTATIVE Respiratory Rate 18 08/23/2018 10:00 AM GUEST SERVICE REPRESENTATIVE Oxygen Saturation 100% 08/21/2018 5:02 PM GUEST SERVICE REPRESENTATIVE Inhaled Oxygen Concentration - - Weight 71.8 kg (158 lb 4.6 oz) 08/21/2018 6:36 A M GUEST SERVICE REPRESENTATIVE Height 167.6 cm (5' 6) 08/21/2018 6:36 AM GUEST SERVICE REPRESENTATIVE Body Mass Index 25.55 08/21/2018 6:36 AM GUEST SERVICE REPRESENTATIVE Plan of Treatment Health Maintenance Due Date [...] 7:44 AM 10/10/2011 12:34 AM Care Teams Trampoline Team Coach Relationship Specialty Start Date End Date Elfego Hidaglo MD [address] [facility] [place] [address] PCP - General Family Practice 11/14/21
== END 2024-03-09 16:08 | disposition home or self-care (01) ==
LOC: US 16:08
PROVIDERS: Visit Provider Advanced Practice Midwife
DX: O34.219 Maternal care for unspecified type scar from previous cesarean delivery (principal); O36.63X0 Maternal care for excessive fetal growth, third trimester, not applicable or unspecified; Z3A.39 39 weeks gestation of pregnancy
CPT/HCPCS: 76816; 76819; 87081; 87653

== ENCOUNTER 2024-03-19 13:59 | Outpatient (CLI) | payer MEDICAID, SELFPAY ==
--- NOTE | 2024-03-19 14:00 | CRLHL7_ITS ---
For Patients: As a result of the Century Cures Act, medical imaging exams and procedure reports are released immediately into your electronic medical record. You may view this report before your referring provider. If you have questions, please contact your health care provider. Indication: polyhydramnios, large for dates ESTIMATED DATE OF DELIVERY (JOAQUÍN): 04/04/2024 Technique: Real-time sonographic images of the pelvis were obtained transabdominally using grayscale, color, and Doppler imaging. Comparison: 03/09/2024 Findings: Cervix is closed, measuring 4.1 centimeter in length. Placenta: Left lateral. No previa. : Number: Single. Position: Cephalic. Cardiac activity: 141 BPM. Amniotic fluid: RAMILA 19.2 cm. GROWTH PARAMETER SIZE (cm) ESTIMATED AGE Biparietal diameter: 9.8 40 weeks 2 days Head circumference: 34.8 40 weeks 3 days Abdominal circumference: 35.3 39 weeks 2 days Femur length: 7.6 39 weeks 0 days Average Ultrasound Age (AUA) based on this exam: 39 weeks 5 days. JOAQUÍN based on the AUA from this exam: 03/21/2024. Estimated weight (EFW): 3794 gm +/-569 gm. This corresponds to the 93.7 percentile based on the established JOAQUÍN. HC/AC= 0.99 FL/AC= 21.6% Biophysical profile: Breathin/2 Movement: 2/2 Tone: 2/2 Fluid volume: 2/2 Total: 01/28 Impression: 1. Single live intrauterine measuring 39 weeks 5 days by ultrasound. Estimated weight (EFW): 3794 gm +/-569 gm. This corresponds to the 93.7 percentile based on the established JOAQUÍN. 2. RAMILA 19.2 cm, which is near the upper limits of normal. 3. Left lateral placenta without previa or abruption. 4. BPP 01/28. Dictated by Sebas Pinto MD @ 03/21/2024 8:58:00 AM (Electronically Signed)
--- OUTSIDE RECORDS SUMMARY | 2024-03-19 14:01 | XMS_ITS | Encounter Summary ---
Author Organization [facility] Address [address] [place] [address] Care Team Providers Care Advertising Project Manager Name Role Phone Jayshree Garcia APRN, CNM Primary Care Provi vahid Encounter Details Date Type Department Care Team (Late st Contact Info) Description 03/10/2024 Medical Correspondence [facility] [address] [facility] [address] [place] [address] Scan, Non-Provider Social History Tobacco Use Types Packs/Day Years Used Date Smoking Tobacco: Never Assessed Estimated Date of Delivery Comme nts Yes 04/04/2024 Based on last me nstrual period of 06/29/2023 Sex and Gender Information Value Date Recorded Sex Assigned at Not on file Gender Identity Not on file Sexual Orientation Not on file documented as of this encounter Plan of Treatment Not on file documented as of this encounter Visit Diagnoses Not on filedocumented in this encounter Care Teams Advertising Project Manager Relationship Specialty Start Date End Date Jayshree Garcia APRN CNM PCP - General 03/10/24 documented as of this encounter
--- OUTSIDE RECORDS SUMMARY | 2024-03-19 14:01 | XMS_ITS | Encounter Summary ---
Author Organization [facility] Address [address] [place] [address] Care Team Providers Care Supervisor Anodizing Name Role Phone Jayshree Garcia APRN [facility] Primary Care Provi vahid Reason for Visit * Reason Comments Ultrasound L2 for polyhydramnio s and LGA on outside scan Encounter Details Date Type Department Care Team (Late st Contact Info) Description 03/11/2024 2:00 PM CDT Office Visit [facility] [address] [place] [phone] Jayshree Garcia APRN [facility] [address] [place] [address] Adalberto Plascencia MD [address] [place] [address] [address] [place], [place] [address] Suspected abnormality affecting management of mother, single or unspecified fetus (Primary Dx); Suspected anomaly not found; Polyhydramnios affecting Social History Tobacco Use Types Packs/Day Years Used Date Smoking Tobacco: Never Assessed Estimated Date of Delivery Comme nts Yes 04/04/2024 Based on last me nstrual period of 06/29/2023 Sex and Gender Information Value Date Recorded Sex Assigned at Not on file Gender Identity Not on file Sexual Orientation Not on file documented as of this encounter Progress Notes * Adalberto Plascencia MD - 03/11/2024 2:00 PM CDT Please refer to ultrasound report under 'Imaging' Studies of 'Chart Review' tabs. Adalberto Plascencia M.D. documented in this encounter Nursing Notes * Francoise Bonilla RN - 03/11/2024 2:00 PM CDT Dillan Novak is a at 36w4d who presents to [facility] for a comprehensive ultrasound. Pt reports positive movement. Pt denies bldg/lof/change in discharge, contractions, headache, vision changes, chest pain/SOB or edema. SBAR given to Dr. Plascencia, see note in Epic. Francoise Bonilla RN documented in this encounter Plan of Treatment Not on file documented as of this encounter Visit Diagnoses Diagnosis Suspected abnormality affecting management of mother, single or unspecified fetus- Primary Suspected anomaly not found Polyhydramnios affecting documented in this encounter Care Teams Supervisor Anodizing Relationship Specialty Start Date End Date Jayshree Garcia APRN CNM PCP - General 03/10/24 documented as of this encounter
--- OUTSIDE RECORDS SUMMARY | 2024-03-19 14:01 | XMS_ITS | Encounter Summary ---
Author Organization [facility] Address [address] [place] [address] Care Team Providers Care Sergeant Of Officers Name Role Phone Jayshree Garcia APRN, CNM Primary Care Provi vahid Encounter Details Date Type Department Care Team (Latest Contact Info) Description 03/11/2024 Travel Social History Tobacco Use Types Packs/Day Years [...] on filedocumented in this encounter Care Teams Sergeant Of Officers Relationship Specialty Start Date End Date Jayshree Garcia APRN CNM PCP - General 03/10/24 documented as of this encounter
--- OUTSIDE RECORDS SUMMARY | 2024-03-19 14:01 | XMS_ITS | Referral Summary ---
Author Organization [facility] Address [address] [place] [address] Care Team Providers Care Wallpaper Embosser Helper Name Role Phone Jayshree Garcia APRN, CNM Primary Care Provi vahid Adalberto Plascencia MD Unavailable [phone] Encounters Date Type Department Care Team Description 03/11/2024 Travel 03/11/2024 2:00 PM CDT Office Visit [facility] [address] [place] [phone] Jayshree Garcia APRN CNM Contag, Stephen A, MD Suspected abnormality affecting management of mother, single or unspecified fetus (Primary Dx); Suspected anomaly not found; Polyhydramnios affecting 03/11/2024 1:30 PM CDT Ancillary Procedure [facility] Medicine [address] [place] [phone] Jayshree Garcia APRN CNM Contag, Stephen A, MD related condition, antepartum 03/10/2024 Medical Correspondence [facility] Information Management [address] [facility] [address] [place] [address] Scan, Non-Provider 03/10/2024 PRE VISIT [facility] Medicine [address] [place] [phone] Vy Piedra RN Ultrasound (L2- poly and LGA on outside US ) 03/10/2024 Transcribe Orders [facility] [address] [facility] [address] [place] [address] Jayshree Garcia APRN Mark related condition, antepartum (Primary Dx) from Last 3 Months Social History Tobacco Use Types Packs/Day Years Used Date Smoking Tobacco: Never Assessed Estimated Date of Delivery Comme nts Yes 04/04/2024 Based on last me nstrual period of 06/29/2023 Sex and Gender Information Value Date Recorded Sex Assigned at Not on file Gender Identity Not on file Sexual Orientation Not on file Plan of Treatment Not on file Procedures Procedure Name Priority Date/Time Associated Diagnosis Comments [facility] COMPREHENSIVE SINGLE Routine 03/11/2024 2:27 PM CDT related condition, antepartum LAB RESULT - HIM SCAN 02/29/2024 12:00 AM CDT from Last 3 Months Results * [facility] Comprehensive Single (03/11/2024 2:27 PM CDT) Anatomical Region Laterality Modality Ultrasound 03/11/2024 1:29 PM CDT Impressions 03/11/2024 2:35 PM CDT IMPRESSION ----- 1. Patient here for a growth scan secondary to a diagnosis of LGA and polyhydramnios on prior scan. She is at 36w4d gestational age. 2. Active single fetus with behavior appropriate for gestational age. 3. Appropriate interval growth. 4. Estimated weight is appropriate for gestational age. 5. None of the anomalies commonly detected by ultrasound were evident in the limited anatomic survey described above. 6. Increased amniotic fluid volume consistent with mild polyhydramnios. Narrative 03/11/2024 2:35 PM CDT ?Comprehensive ----- Pat. Name: TYLER MICHELE ? Study Date: ??03/11/2024 1:29pm Pat. NO: ??[id number] ?Referring ??MD: [facility] Site: ? Co Founder And Ceo: Marni Elizondo RDMS : ??1995 ?Age: ?? 28 ----- INDICATION ----- LGA and Polyhydramnios on outside exam METHOD ----- Transabdominal ultrasound examination. View: Sufficient ----- Pabon . Number of fetuses: 1 DATING ----- ? Date ?Details ?Gest. age ?JOAQUÍN LMP ?06/29/2023 ? 36 w + 4 d ? 04/04/2024 Previous U/S ?08/26/2023 ?GA, GA 8 w + 3 d ? 36 w + 5 d ? 04/03/2024 U/S ? 03/11/2024 ? based upon AC, BPD, Femur, HC ?37 w + 5 d ? 03/27/2024 Assigned dating ?based on the LMP, selected on 03/11/2024 ? 36 w + 4 d ? 04/04/2024 GENERAL EVALUATION ----- Cardiac activity present. FHR 128 bpm. movements: present. Presentation: cephalic Placenta: posterior, fundal, No Previa, > 2 cm from internal os Umbilical cord: 3 vessel cord Amniotic fluid: Amount of AF: Polyhydramnios. MVP 8.8 cm. RAMILA 25.1 cm. Q1 9.6 cm, Q2 5.8 cm, Q3 6.2 cm, Q4 3.6 cm BIOMETRY ----- BPD ? 97.4 ?mm ? 39w 6d ?Hadlock OFD ? 115.4 ?mm ? 36w 3d ? Nicolaides HC ? 339.4 ?mm ? 39w 0d ? Hadlock Cerebellum tr ?52.6 ?mm ? -/- ?Nicolaides AC ? 336.7 ?mm ? 37w 4d ?86% ?Hadlock Femur ?67.0 ?mm ? 34w 3d ? Hadlock Humerus ? 60.4 ? mm ?35w 0d ?Leigh Ann Weight Calculation: EFW ?3,159 ?g ?72% ? Hadlock EFW (lb,oz) ?6 lb 15 ?oz EFW by ? Hadlock ([id number]) Head / Face / Neck Biometry: Pump House Operator ?5.0 ? mm CM ? 7.8 ? mm Nasal bone ?9.0 ? mm ANATOMY ----- The following structures appear normal: Head / Neck ? Cranium. Head size. Head shape. Lateral ventricles. Choroid plexus. Midline falx. Cavum septi pellucidi. Cerebellum. Cisterna magna. ? Parenchyma. Thalami. Vermis. ? Neck. Face ? Lips. Profile. Nose. Maxilla. Mandible. Orbits. Lens. Heart / Thorax ?4-chamber view. RVOT view. LVOT view. 3-vessel view. 1-zrzsli-bnybbdj view. Situs. Aortic arch view. Bicaval view. Ductal arch view. Superior ? vena cava. Inferior vena cava. Cardiac position. Cardiac size. Cardiac rhythm. ? Right lung. Left lung. Diaphragm. Abdomen ? Abdom. wall. Cord insertion. Stomach. Kidneys. Bladder. Liver. Bowel. Genitals. Spine ?Cervical spine. Thoracic spine. Lumbar spine. Sacral spine. Extremities / Skeleton ?Arms. Right arm. Right hand. Left arm. Left hand. Legs. Right leg. Right foot. Left leg. Left foot. sex: male. MATERNAL STRUCTURES ----- Cervix ?Visualized ? Appearance: Appears Closed Right Ovary ?Visualized Left Ovary ?Visualized RECOMMENDATION ----- Continue surveillance with AF assessment every 2 weeks and delivery at 29m0b-06b7u for mild polyhydramnios. We presume this will be done in your office. If you would prefer future ultrasound be done in the Maternal- Medicine clinic, please let us know. Thank you for the opportunity to participate in the care of this patient. If you have questions regarding today's evaluation or if we can be of further service, please contact the Maternal- Medicine Center. anomalies may be present but not detected Procedure Note Adalberto Plascencia MD - 03/11/2024 Comprehensive ----- Pat. Name: TYLER MICHELE Study Date: 03/11/2024 1:29pm Pat. NO: [id number] Referring MD: JAYSHREE GARCIA Site: Co Founder And Ceo: Marni Elizondo RDMS : 1995 Age: 28 ----- INDICATION ----- LGA and Polyhydramnios on outside exam METHOD ----- Transabdominal ultrasound examination. View: Sufficient ----- Pabon . Number of fetuses: 1 DATING ----- DateDetailsGest. age JOAQUÍN LMP w + 4 d 04/04/2024 Previous U/S 08/26/2023 GA, GA8 w + 3 d36 w + 5 d 04/03/2024 U/S 03/11/2024ased upon AC, BPD, Femur, HC37 w + 5 d 03/27/2024 Assigned dating based on the LMP, selected on w + 4 d 04/04/2024 GENERAL EVALUATION ----- Cardiac activity present. FHR 128 bpm. movements: present.Presentation: cephalic Placenta: posterior, fundal, No Previa, > 2 cm from internal os Umbilical cord: 3 vessel cord Amniotic fluid: Amount of AF: Polyhydramnios. MVP 8.8 cm. RAMILA 25.1 cm. Q19.6 cm, Q2 5.8 cm, Q3 6.2 cm, Q4 3.6 cm BIOMETRY ----- BPD 97.4mm 39w 6dHadlock OFD 115.4mm 36w 3dNicolaides HC 339.4mm 39w 0dHadlock Cerebellum tr 52.6mm -/-Nicolaides AC 336.7mm 37w 4d 86%Hadlock Femur 67.0mm 34w 3dHadlock Humerus 60.4mm 35w 0dJeanty Weight Calculation: EFW 3,159g 72%Hadlock EFW (lb,oz) 6 lb 15oz EFW by Hadlock([id number]) Head / Face / Neck Biometry: Pump House Operator 5.0mm CM 7.8mm Nasal bone 9.0 mm ANATOMY ----- The following structures appear normal: Head / Neck Cranium. Head size. Head shape.Lateral ventricles. Choroid plexus. Midline falx. Cavum septi pellucidi.Cerebellum. Cisterna magna. Parenchyma. Thalami. Vermis. Neck. Face Lips. Profile. Nose. Maxilla.Mandible. Orbits. Lens. Heart / Thorax 4-chamber view. RVOT view. LVOT view.3-vessel view. 7-efuknk-zlhmevo view. Situs. Aortic arch view. Bicavalview. Ductal arch view. Superior vena cava. Inferior vena cava.Cardiac position. Cardiac size. Cardiac rhythm. Right lung. Left lung.Diaphragm. Abdomen Abdom. wall. Cord insertion. Stomach.Kidneys. Bladder. Liver. Bowel. Genitals. Spine Cervical spine. Thoracic spine.Lumbar spine. Sacral spine. Extremities / Skeleton Arms. Right arm. Right hand. Left arm.Left hand. Legs. Right leg. Right foot. Left leg. Left foot. sex: male. MATERNAL STRUCTURES ----- Cervix Visualized Appearance: Appears Closed Right Ovary Visualized Left Ovary Visualized RECOMMENDATION ----- Continue surveillance with AF assessment every 2 weeks anddelivery at 62v9p-66w6j for mild polyhydramnios. We presume this will bedone in your office. If you would prefer future ultrasound be done in the Maternal- Medicineclinic, please let us know. Thank you for the opportunity to participate in the care of this patient.If you have questions regarding today's evaluation or if we can be offurther service, please contact the Maternal- Medicine Center. anomalies may be present but not detected IMPRESSION ----- 1. Patient here for a growth scan secondary to a diagnosis of LGAand polyhydramnios on prior scan. She is at 36w4d gestational age. 2. Active single fetus with behavior appropriate for gestational age. 3. Appropriate interval growth. 4. Estimated weight is appropriate for gestational age. 5. None of the anomalies commonly detected by ultrasound were evident inthe limited anatomic survey described above. 6. Increased amniotic fluid volume consistent with mild polyhydramnios. Jayshreechristopher Garcia APRN [facility] US ORDERABLES * Lab Result - HIM Scan (02/29/2024 12:00 AM CDT) 02/29/2024 Provider Outside NON-BEAKER LAB TE STING from Last 3 Months Care Teams Wallpaper Embosser Helper Relationship Specialty Start Date End Date Jayshree Garcia APRN CNM PCP - General 03/10/24 Adalberto Plascencia MD [address] [address] Assigned OBGYN Provider 03/15/24
--- OUTSIDE RECORDS SUMMARY | 2024-03-19 14:01 | XMS_ITS | Encounter Summary ---
Author Organization [facility] Address [address] [place] [address] Care Team Providers Care Applied Psychology Professor Name Role Phone Jayshree Garcia APRN [facility] Primary Care Provi vahid Reason for Visit * Diagnostic Imaging Ultrasound (Routine) - Pending Review Specialty Diagnoses / Procedures Referred By Brandy morel Referred To Contact Radiology. Diagnoses related condition, antepartum Procedures [facility] US Comprehensive Single Jayshree Garcia APRN [facility] [address] [place] [address] Referral ID Status Reason Start Date Expiration Date V isits Requested Visits Authorized [id number] Pending Review 03/10/2024 03/10/2025 1 1 Encounter Details Date Type Department Care Team (Latest Contact Info) Description 03/11/2024 1:30 PM CDT Ancillary Procedure [facility] Center [address] [phone] Jayshree Garcia APRN [facility] [address] [place] [address] Adalberto Plascencia MD [address] [place] [id number] related condition, antepartum Social History Tobacco Use Types Packs/Day Years [...] on file documented as of this encounter Procedures Procedure Name Priority Date/Time Associated Diagnosis Comments [facility] US COMPREHENSIVE SINGLE Routine 03/11/2024 2:27 PM CDT related condition, antepartum documented in this encounter Results * [facility] US Comprehensive Single (03/11/2024 2:27 PM CDT) Anatomical [...] ? Study Date: ??03/11/2024 1:29pm Pat. NO: ??[id number] ?Referring ??MD: JAYSHREE GARCIA Site: ? Tele Rn: Marni Elizondo [facility] : ??1995 ?Age: ?? 28 ----- INDICATION [...] BPD ? 97.4 ?mm ? 39w 6d ?Henrietta ORTIZ ? 115.4 ?mm ? 36w 3d ? [...] lb 15 ?oz EFW by ? Hadlock ([id number]) Head / Face / Neck Biometry: Electrical Accessories Ii Assembler ?5.0 ? mm CM ? 7.8 ? [...] view. RVOT view. LVOT view. 3-vessel view. 6-nqjtrn-uvviyvg view. Situs. Aortic arch view. Bicaval view. [...] assessment every 2 weeks and delivery at 10o7h-25v4s for mild polyhydramnios. We presume this will [...] MICHELE Study Date: 03/11/2024 1:29pm Pat. NO: [id number] Referring MD: JAYSHREE GARCIA Site: Tele Rn: Marni Elizondo RDMS : 1995 Age: 28 [...] EFW (lb,oz) 6 lb 15oz EFW by Hadlock([id number]) Head / Face / Neck Biometry: Electrical Accessories Ii Assembler 5.0mm CM 7.8mm Nasal bone 9.0 mm ANATOMY ----- The following structures appear normal: Head / Neck Cranium. Head size. Head shape.Lateral ventricles. Choroid plexus. Midline falx. Cavum septi pellucidi.Cerebellum. Cisterna magna. Parenchyma. Thalami. Vermis. Neck. Face Lips. Profile. Nose. Maxilla.Mandible. Orbits. Lens. Heart / Thorax 4-chamber view. RVOT view. LVOT view.3-vessel view. 2-jclwzx-mdfflah view. Situs. Aortic arch view. Bicavalview. Ductal [...] AF assessment every 2 weeks anddelivery at 52g1n-79g3c for mild polyhydramnios. We presume this will [...] amniotic fluid volume consistent with mild polyhydramnios. Jayshree Garcia APRN, CNM [facility] US ORDERABLES documented in this encounter Visit Diagnoses Diagnosis related condition, antepartum documented in this encounter Care Teams Applied Psychology Professor Relationship Specialty Start Date End Date Jayshree Garcia APRN CNM PCP - General 03/10/24 documented as of this encounter
--- OUTSIDE RECORDS SUMMARY | 2024-03-19 14:01 | XMS_ITS | Clinical Summary ---
Author Organization [facility] Address [address] [place] [address] Care Team Providers Care Senior Piping Designer Name Role Phone Jayshree Garcia APRN, CNM Primary Care Provi vahid Adalberto Plascencia MD Unavailable [phone] Encounters Date Type Department Care Team Description 03/11/2024 2:00 PM CDT Office Visit [facility] Maternal Medicine [address] [place] [phone] Jayshree Garcia APRN CNM Contag, Stephen A, MD Suspected abnormality affecting management of mother, single or unspecified fetus (Primary Dx); Suspected anomaly not found; Polyhydramnios affecting 03/11/2024 1:30 PM CDT Ancillary Procedure [facility] Medicine [address] [place] [phone] Jayshree Garcia APRN CNM Contag, Stephen A, MD related condition, antepartum 03/11/2024 Travel 03/10/2024 Medical Correspondence [facility] Information Management [address] [facility] [address] [place] [address] Scan, Non-Provider 03/10/2024 PRE VISIT [facility] Medicine [address] [place] [phone] Vy Piedra RN Ultrasound (L2- poly and LGA on outside US ) 03/10/2024 Transcribe Orders [facility] Maternal Medicine [facility] [address] [facility] [address] [place] [phone] Jayshree Garcia APRN CNM related condition, antepartum (Primary Dx) from Last [...] Orientation Not on file Plan of Treatment Health Maintenance Due Date Last Done Comments ADVANCE CARE PLANNING 1995 ANNUAL REVIEW OF HM ORDERS 1995 YEARLY PREVENTIVE VISIT 1995 HIV SCREENING 11/07/2010 HEPATITIS C SCREENING 11/07/2013 PHQ-2 (once per calendar year) 2023 MATERNAL SCREENING DISCUSSION 09/07/2023 OBGCT (OB) 12/14/2023 COVID-19 Vaccine ( season) 2024 INFLUENZA VACCINE (#1) 2024 0, 07/05/2009, 04/10/2009 GROUP B STREP SCREENING 03/07/2024 PAP 05/11/2024 05/11/2021 DTAP/TDAP/TD IMMUNIZATION (11 - Td or Tdap) 09/25/2031 09/24/2021, 06/10/2018, 01/04/2008, Additional history exists HEPATITIS B IMMUNIZATION Completed 997, 06/28/1996, 05/24/1996 HPV IMMUNIZATION Aged Out No longer e ligible based on patient's age to complete this topic MENINGITIS IMMUNIZATION Aged Out No l onger eligible based on patient's age to complete this topic Pneumococcal Vaccine: Pediatrics (0 to 5 Years) and At-Risk Patients (6 to 64 Years) Aged Out No longer eligible based on patient's age to complete this topic RSV MONOCLONAL ANTIBODY Aged Out No l onger eligible based on patient's age to complete this topic RSV VACCINE (No Doses Required) Completed Procedures Procedure Name Priority Date/Time Associated Diagnosis Comments [facility] COMPREHENSIVE SINGLE Routine 03/11/2024 2:27 PM CDT related condition, antepartum LAB RESULT - HIM SCAN 02/29/2024 12:00 AM CDT from Last 3 Months Results * [facility] US Comprehensive Single (03/11/2024 2:27 PM [...] ? Study Date: ??03/11/2024 1:29pm Pat. NO: ??[id number] ?Referring ??MD: JAYSHREE ACEVEDOPHAL Site: ? Geriatric Physical Therapist: Marni Elizondo RDMS : ??1995 ?Age: ?? [...] BPD ? 97.4 ?mm ? 39w 6d ?Hadmireille OFRose ? 115.4 ?mm ? 36w 3d ? [...] ?6 lb 15 ?oz EFW by ? [facility] ([id number]) Head / Face / Neck Biometry: Funeral Arrangement Director ?5.0 ? mm CM ? 7.8 ? [...] view. RVOT view. LVOT view. 3-vessel view. 7-bzrmba-jijlfxw view. Situs. Aortic arch view. Bicaval view. [...] assessment every 2 weeks and delivery at 17e3p-08y9e for mild polyhydramnios. We presume this will [...] MICHELE Study Date: 03/11/2024 1:29pm Pat. NO: [id number] Referring MD: JAYSHREE GARCIA Site: Geriatric Physical Therapist: Marni Elizondo RDMS : 1995 Age: 28 [...] EFW (lb,oz) 6 lb 15oz EFW by Hadlock([id number]) Head / Face / Neck Biometry: Funeral Arrangement Director 5.0mm CM 7.8mm Nasal bone 9.0 mm ANATOMY ----- The following structures appear normal: Head / Neck Cranium. Head size. Head shape.Lateral ventricles. Choroid plexus. Midline falx. Cavum septi pellucidi.Cerebellum. Cisterna magna. Parenchyma. Thalami. Vermis. Neck. Face Lips. Profile. Nose. Maxilla.Mandible. Orbits. Lens. Heart / Thorax 4-chamber view. RVOT view. LVOT view.3-vessel view. 3-ztztwb-zhjkkhl view. Situs. Aortic arch view. Bicavalview. Ductal [...] AF assessment every 2 weeks anddelivery at 97i7i-06z9d for mild polyhydramnios. We presume this will [...] with mild polyhydramnios. Jayshree Garcia APRN, CNM [facility] US ORDERABLES * Lab Result - HIM Scan (02/29/2024 12:00 AM CDT) 02/29/2024 Provider Outside NON-BEAKER LAB TE STING from Last 3 Months Care Teams Senior Piping Designer Relationship Specialty Start Date End Date Barber JayshreeEMILY arriola CNM PCP - General 03/10/24 Adalberto Plascencia MD [address] [facility] [address] [place], [place] [address] Assigned OBGYN Provider 03/15/24
--- OUTSIDE RECORDS SUMMARY | 2024-03-19 14:02 | XMS_ITS | Referral Summary ---
Author Organization [facility] Address [address] [place] [address] Care Team Providers Care State Auditor Name Role Phone Elsewhere, Pcp Primary Care Provider Unavailabl e Source Comments Patient records contain information from all sites at [facility]. For routine questions regarding patient records, call [phone] during business hours, M-F 8:00 AM - 5:00 PM Central Time. Record requests for emergency care only can be directed to [phone] at any time.[facility] Allergies No known active allergies Medications [...] (E coil) 1st trimester, asymptomatic, did not continuous pickling line pickler helper abx rx until 15 wks. Treated with [...] often do you attend chur ch or orthodox services? 1 to 4 times per year 06/12/2021 Do you belong to any clubs o r organizations such as spiritism groups, unions, fraternal or athletic groups, or [...] Answer Date Recorded PHQ-2 Score 0 11/29/2021 [facility] [place] of Occupat ional Health - Occupational Stress [...] place to sleep or slept in a fdc (including now)? No 06/12/2021 Nutrition Answer Date [...] Sex Assigned at Female 05/06/2018 3:40 PM PIPE CHANGER Gender Identity Female 05/06/2018 3:40 PM PIPE CHANGER Sexual Orientation Straight 05/06/2018 3: 40 PM PIPE CHANGER Last Filed Vital Signs Vital Sign Reading [...] GENOTYPING, PCR, THINPREP Routine 05/11/2021 4:26 PM PIPE CHANGER HIV-1/-2 AG AND AB SCRN, PLASMA Routine 04/19/2021 10:48 AM CDT Encounter For Supervision Of Other Normal Unspecified Trimester CHLAMYDIA/GONORRHOE AE AMPLIFIED RNA Routine 02/16/2018 3:05 PM CDT Encounter For Supervision Of Other Normal Unspecified Trimester from Last 3 Months or Most Recently Relevant to Health Maintenance Results * HPV with Genotyping, PCR, ThinPrep (05/11/2021 4:26 PM PIPE CHANGER) HPV with Genotyping, ThinPrep, PCR Negative Negative 05/14/2021 5:[address] [facility] Comment: Negative for high risk HPV by nucleic acid amplification. ??The following high risk HPV types were not detected: 16, 18, 31, 33, 35, 39, 45, 51, 52, 56, 58, 59, 66, and 68 Varies 05/11/2021 4:26 PM PIPE CHANGER 05/14/2021 6:41 AM PIPE CHANGER Elfego Hidalgo M.D. LAB MICROBIOLOGY - GENERAL ORDERABLES [facility] [place] [address], [facility] [place] [address] [place] [address] * HIV-1/-2 Ag and Ab Scrn, Plasma [...] Hidalgo M.D. LAB MICROBIOLOGY - BLOOD ORDERABLES [facility] [address] [place] [address], [facility] in [address] [address] * Chlamydia / gonorrhoeae Amplified RNA (02/16/2018 3:05 PM CDT) Source VAGINA 02/17/2018 11:14 AM CDT [facility] Chlamydia trachomatis amplified RNA Negative Negative 02/17/2018 11:14 AM CDT [facility] Comment: ----ADDITIONAL INFORMATION---- This report is intended for use in clinical monitoring and management of patients. It is not intended for use in medical-legal applications. Source VAGINA 02/17/2018 11:14 AM CDT [facility] Neisseria gonorrhoeae amplified RNA Negative Negative 02/17/2018 11:14 AM CDT [facility] Comment: ----ADDITIONAL INFORMATION---- This report is intended for use in clinical monitoring and management of patients. It is not intended for use in medical-legal applications. Varies (Vagina) 02/16/2018 3 :05 PM CDT 02/16/2018 11:23 PM CDT Matheus Merritt M.D. LAB MICROBIOLOGY - GENERAL ORDERABLES [facility] [address] [place] [address], [facility] from Last 3 Months or Most Recently Relevant to Health Maintenance Care Teams State Auditor Relationship Specialty Start Date End Date Elsewhere, Pcp PCP - General Internal Medicine 11/21/21
--- OUTSIDE RECORDS SUMMARY | 2024-03-19 14:02 | XMS_ITS | Clinical Summary ---
Author Organization [facility] Address [place], [place] [address] Care Team Providers Care Door Closer Mechanic Name Role Phone Elfego Hidalgo MD Primary [...] (E coil) 1st trimester, asymptomatic, did not miner pick abx rx until 15 wks. Treated with [...] Comments Blood Pressure 130/72 08/23/2018 10:00 AM OBJECT ORIENTED PROGRAMMER Pulse 60 08/23/2018 10:00 AM OBJECT ORIENTED PROGRAMMER Temperature 36.7 ??C (98 ??F) 08/23/2018 10:00 AM OBJECT ORIENTED PROGRAMMER Respiratory Rate 18 08/23/2018 10:00 AM OBJECT ORIENTED PROGRAMMER Oxygen Saturation 100% 08/21/2018 5:02 PM OBJECT ORIENTED PROGRAMMER Inhaled Oxygen Concentration - - Weight 71.8 kg (158 lb 4.6 oz) 08/21/2018 6:36 A M OBJECT ORIENTED PROGRAMMER Height 167.6 cm (5' 6) 08/21/2018 6:36 AM OBJECT ORIENTED PROGRAMMER Body Mass Index 25.55 08/21/2018 6:36 AM OBJECT ORIENTED PROGRAMMER Plan of Treatment Health Maintenance Due Date [...] 7:44 AM 10/10/2011 12:34 AM Care Teams Door Closer Mechanic Relationship Specialty Start Date End Date Elfego Hidalgo MD [address] [facility] [place] [address] PCP - General Family Practice 11/14/21
--- OUTSIDE RECORDS SUMMARY | 2024-03-19 14:02 | XMS_ITS | Clinical Summary ---
Author Organization [facility] Address [address] [place] [address] Care Team Providers Care Project Development Coordinator Name Role Phone Elsewhere, Pcp Primary Care Provider Unavailabl e Source Comments Patient records contain information from all sites at [facility]. For routine questions regarding patient records, call [phone] during business hours, M-F 8:00 AM - 5:00 PM Central Time. Record requests for emergency care only can be directed to [phone] at any time.[facility] Allergies No known active allergies Medications Medication [...] (E coil) 1st trimester, asymptomatic, did not sheepskin pickler abx rx until 15 wks. Treated [...] How often do you attend chur or catholic services? 1 to 4 times per year 06/12/2021 Do you belong to any clubs o r organizations such as latter-day groups, unions, fraternal or athletic groups, or [...] Answer Date Recorded PHQ-2 Score 0 11/29/2021 [facility] [place] of Occupat ional Health - Occupational Stress [...] place to sleep or slept in a longterm (including now)? No 06/12/2021 Nutrition Answer Date [...] Sex Assigned at Female 05/06/2018 3:40 PM SALES COORDINATOR Gender Identity Female 05/06/2018 3:40 PM SALES COORDINATOR Sexual Orientation Straight 05/06/2018 3: 40 PM SALES COORDINATOR Last Filed Vital Signs Vital Sign Reading [...] GENOTYPING, PCR, THINPREP Routine 05/11/2021 4:26 PM SALES COORDINATOR HIV-1/-2 AG AND AB SCRN, PLASMA Routine 04/19/2021 10:48 AM CDT Encounter For Supervision Of Other Normal Unspecified Trimester CHLAMYDIA/GONORRHOE AE AMPLIFIED RNA Routine 02/16/2018 3:05 PM CDT Encounter For Supervision Of Other Normal Unspecified Trimester from Last 3 Months or Most Recently Relevant to Health Maintenance Results * HPV with Genotyping, PCR, ThinPrep (05/11/2021 4:26 PM SALES COORDINATOR) HPV with Genotyping, ThinPrep, PCR Negative Negative 05/14/2021 5:50 PM SALES COORDINATOR [facility] Comment: Negative for high risk HPV by nucleic acid amplification. ??The following high risk HPV types were not detected: 16, 18, 31, 33, 35, 39, 45, 51, 52, 56, 58, 59, 66, and 68 Varies 05/11/2021 4:26 PM SALES COORDINATOR 05/14/2021 6:41 AM SALES COORDINATOR Elfego Hidalgo M.D. LAB MICROBIOLOGY - GENERAL ORDERABLES [facility] [address] [place] [address], [place] [address] * HIV-1/-2 Ag and Ab Scrn, Plasma [...] P Negative Negative 04/20/2021 11:00 AM CDT [facility] Comment: Negative result does not rule out HIV infection. If exposure to HIV infection occurred <14 days ago, contact the laboratory to request addition of HIV-1 RNA detection / quantification test. Blood (Blood, Venous) 04/19/2021 10:48 AM CDT 04/19/2021 3:10 PM CDT Elfego Hidalgo M.D. LAB MICROBIOLOGY - BLOOD ORDERABLES [facility] [address] [place] [address], [facility] in [address] [address] * Chlamydia / gonorrhoeae Amplified RNA (02/16/2018 3:05 PM CDT) Source VAGINA 02/17/2018 11:14 AM CDT [facility] Chlamydia trachomatis amplified RNA Negative Negative 02/17/2018 11:14 AM CDT [facility] Comment: ----ADDITIONAL INFORMATION---- This report is intended for use in clinical monitoring and management of patients. It is not intended for use in medical-legal applications. Source VAGINA 02/17/2018 11:14 AM CDT [facility] Neisseria gonorrhoeae amplified RNA Negative Negative 02/17/2018 11:14 AM CDT [facility] Comment: ----ADDITIONAL INFORMATION---- This report is intended for use in clinical monitoring and management of patients. It is not intended for use in medical-legal applications. Varies (Vagina) 02/16/2018 3 :05 PM CDT 02/16/2018 11:23 PM CDT Matheus Merritt M.D. LAB MICROBIOLOGY - GENERAL ORDERABLES [facility] [address] [place] [address], [facility] from Last 3 Months or Most Recently Relevant to Health Maintenance Care Teams Project Development Coordinator Relationship Specialty Start Date End Date Elsewhere, Pcp PCP - General Internal Medicine 11/21/21
--- OUTSIDE RECORDS SUMMARY | 2024-03-19 14:02 | XMS_ITS | Encounter Summary ---
Author Organization [facility] Address [address] [place] [address] Care Team Providers Care Presser First Name Role Phone Jayshree Garcia APRN, CNM Primary Care Provi vahid Reason for Visit * Reason Comments Ultrasound L2- poly and LGA on outside US Encounter Details Date Type Department Care Team (Late st Contact Info) Description 03/10/2024 PRE VISIT [facility] [address] [address] Vy Piedra RN Ultrasound (L2- poly and LGA on outside US ) Social History Tobacco Use Types Packs/Day Years [...] on filedocumented in this encounter Care Teams Presser First Relationship Specialty Start Date End Date Jayshree Garcia APRN CNM PCP - General 03/10/24 documented as of this encounter
--- OUTSIDE RECORDS SUMMARY | 2024-03-19 14:02 | XMS_ITS | Encounter Summary ---
Author Organization [facility] Address [address] [place] [address] Care Team Providers Care Ct Mri Technologist Name Role Phone Jayshree Garcia APRN, CNM Primary Care Provi vahid Reason for Referral * Diagnostic Imaging Ultrasound (Routine) - Pending Review Specialty Diagnoses / Procedures Referred By Gelyac t Referred To Contact Radiology. Diagnoses related condition, antepartum Procedures [facility] US Comprehensive Single Jayshree Garcia APRN CNM [facility] [address] [place] [address] Referral ID Status Reason Start Date Expiration Date V isits Requested Visits Authorized [id number] Pending Review 03/10/2024 03/10/2025 1 1 * Consultation (Priority: 1-2 Weeks) - Pending Review Specialty Diagnoses / Procedures Referred By Brandy morel Referred To Contact Diagnoses related condition, antepartum Jayshree Garcia APRN [facility] [address] [place] [address] [facility]aternal [facility] [address] [place] [address] Referral ID Status Reason Start Date Expiration Date V isits Requested Visits Authorized [id number] Pending Review 03/10/2024 03/10/2025 1 1 Question Answer Preferred Location: [facility] [place] JOAQUÍN 04/04/2024 Ultrasound Comprehensive US (>than 18 weeks GA) US PROC NONE MFM Issue OTHER (enter details in Comments) - Polyhydromnios and large for gerstational age. MFM MD Consultation (unrelated to Ultrasound findings): No Inflammatory Bowel Disease Clinic: Joint MFM and GI Consultation: No Chronic Kidney Disease: Joint MFM and Nephrology Consultation No Cardio-Obstetrics: Joint MFM and Cardiology Consultation No Genetic Counseling Consultation: No fax [facility] - Jayshree Garcia - ([phone]) Comments There is no height or weight on file to calculate BMI. >> Patient may proceed with recommendations for further testing as directed by the Maternal Medicine Specialist >> >> If requesting Echo: MFM will determine appropriate location for exam due to indication. Please be aware that coverage of these services is subject to the terms and limitations of your health insurance plan. Call member services at your health plan with any benefit or coverage questions. Encounter Details Date Type Department Care Team (Late st Contact Info) Description 03/10/2024 Transcribe Orders [facility] [place] [address] [place] [address] Jayshree Garcia APRN CNM [facility] [address] [place] [address] related condition, antepartum (Primary Dx) Social History Tobacco Use Types Packs/Day Years Used Date Smoking Tobacco: Never Assessed Estimated Date of Delivery Comme nts Yes 04/04/2024 Based on last me nstrual period of 06/29/2023 Sex and Gender Information Value Date Recorded Sex Assigned at Not on file Gender Identity Not on file Sexual Orientation Not on file documented as of this encounter Plan of Treatment Scheduled Referrals Name Type Priority Associated Diagnoses Orde r Schedule Mat Med Ctr Referral - Referral KAREN related condition, antepartum Expected: 03/10/2024 (Approximate), Expires: 09/06/2024 documented as of this encounter Results * [facility] US Comprehensive Single (03/11/2024 2:27 PM CDT) [...] ? Study Date: ??03/11/2024 1:29pm Pat. NO: ??[id number] ?Referring ??: JAYSHREE GARCIA Site: ? Otr Owner Operator Truck Driver: Marni Elizondo RDMS : ??1995 ?Age: ?? [...] ?6 lb 15 ?oz EFW by ? [facility] ([id number]) Head / Face / Neck Biometry: Right Of Way Worker ?5.0 ? mm CM ? 7.8 ? [...] view. RVOT view. LVOT view. 3-vessel view. 4-lhzqsu-ksggyuf view. Situs. Aortic arch view. Bicaval view. [...] assessment every 2 weeks and delivery at [id number] for mild polyhydramnios. We presume this will [...] MICHELE Study Date: 03/11/2024 1:29pm Pat. NO: [id number] Referring MD: JAYSHREE GARCIA Site: Otr Owner Operator Truck Driver: Marni Elizondo RDMS : 1995 Age: 28 [...] EFW (lb,oz) 6 lb 15oz EFW by [facility]([id number]) Head / Face / Neck Biometry: Right Of Way Worker 5.0mm CM 7.8mm Nasal bone 9.0 mm ANATOMY ----- The following structures appear normal: Head / Neck Cranium. Head size. Head shape.Lateral ventricles. Choroid plexus. Midline falx. Cavum septi pellucidi.Cerebellum. Cisterna magna. Parenchyma. Thalami. Vermis. Neck. Face Lips. Profile. Nose. Maxilla.Mandible. Orbits. Lens. Heart / Thorax 4-chamber view. RVOT view. LVOT view.3-vessel view. 8-ocwhtt-ujmuqzf view. Situs. Aortic arch view. Bicavalview. Ductal [...] AF assessment every 2 weeks anddelivery at [id number] for mild polyhydramnios. We presume this will [...] fluid volume consistent with mild polyhydramnios. Jayshree Garica APRN, CNM [facility] US ORDERABLES documented in this encounter Visit Diagnoses Diagnosis related condition, antepartum- Primary related condition, antepartum documented in this encounter Care Teams Ct Mri Technologist Relationship Specialty Start Date End Date Jayshree Garcia APRN CNM PCP - General 03/10/24 documented as of this encounter
--- OUTSIDE RECORDS SUMMARY | 2024-03-19 14:02 | XMS_ITS ---
Author Organization [facility] Address [address] [place] [address] Care Team Providers Care Hackler Doll Wigs Name Role Phone Unavailable Unavailable Unavailable Surgery Details Not on file Complications Check Surgery Details section. Procedure Estimated Blood Loss Check Surgery Details section. Procedure Findings Check Surgery Details section. Procedure Specimens Taken Check Surgery Details section.
== END 2024-03-19 14:00 | disposition home or self-care (01) ==
LOC: US 14:00
PROVIDERS: Visit Provider Advanced Practice Midwife
DX: O40.3XX0 Polyhydramnios, third trimester, not applicable or unspecified (principal); O36.63X0 Maternal care for excessive fetal growth, third trimester, not applicable or unspecified; Z3A.39 39 weeks gestation of pregnancy; Z98.891 History of uterine scar from previous surgery
CPT/HCPCS: 76816; 76819

== ENCOUNTER 2024-03-25 10:45 | Outpatient (CLI) | payer MEDICAID, SELFPAY ==
--- NOTE | 2024-03-25 10:45 | CRLHL7_ITS ---
For Patients: As a result of the Century Cures Act, medical imaging exams and procedure reports are released immediately into your electronic medical record. You may view this report before your referring provider. If you have questions, please contact your health care provider. BIOPHYSICAL PROFILE JOAQUÍN by LMP: 04/04/2024. GA: 38 weeks 4 days. Gestation: Pabon. INDICATION: Poly, large for dates, TOLAC. Cervix: Not Visualized. Position: Vertex. Amniotic Fluid: RAMILA 29.09 cm. Placenta Technique: TA. Placenta Position: Posterior. Heart Rate: 133 bpm. BIOPHYSICAL PROFILE Total Score: 8/8. Gross Body Movements: 2. Tone: 2. Respiratory Activity: 2. Amniotic Fluid SDP (N: ?2x1 cm): 2. IMPRESSION: Biophysical profile score 8/8. Polyhydramnios with RAMILA of 29.09. Single deepest pocket measures 8.9. Gabriela Barrera M.D. Diagnostic/Breast Radiologist [email or web address] ALEJANDRINA/wali / DW/Dictated by: Gabriela Barrera MD @ 03/28/2024 5:15:00 PM (Electronically Signed)
--- OUTSIDE RECORDS SUMMARY | 2024-03-25 10:49 | XMS_ITS | Referral Summary ---
Author Organization [facility] Address [address] [place] [address] Care Team Providers Care Survey Rodman Name Role Phone Elsewhere, Pcp Primary Care Provider Unavailabl e Source Comments Patient records contain information from all sites at [facility]. For routine questions regarding patient records, call [phone] during business hours, M-F 8:00 AM - 5:00 PM Central Time. Record requests for emergency care only can be directed to [phone] at any time.[facility] Allergies No known active allergies Medications [...] (E coil) 1st trimester, asymptomatic, did not picking crew supervisor abx rx until 15 wks. Treated with [...] often do you attend chur ch or synagogue services? 1 to 4 times [...] Answer Date Recorded PHQ-2 Score 0 11/29/2021 [facility] [place] of Occupat ional Health - Occupational Stress [...] place to sleep or slept in a snf (including now)? No 06/12/2021 Nutrition Answer Date [...] Sex Assigned at Female 05/06/2018 3:40 PM CUTTING ROOM SUPERVISOR Gender Identity Female 05/06/2018 3:40 PM CUTTING ROOM SUPERVISOR Sexual Orientation Straight 05/06/2018 3: 40 PM CUTTING ROOM SUPERVISOR Last Filed Vital Signs Vital Sign [...] GENOTYPING, PCR, THINPREP Routine 05/11/2021 4:26 PM CUTTING ROOM SUPERVISOR HIV-1/-2 AG AND AB SCRN, PLASMA Routine 04/19/2021 10:48 AM CDT Encounter For Supervision Of Other Normal Unspecified Trimester CHLAMYDIA/GONORRHOE AE AMPLIFIED RNA Routine 02/16/2018 3:05 PM CDT Encounter For Supervision Of Other Normal Unspecified Trimester from Last 3 Months or Most Recently Relevant to Health Maintenance Results * HPV with Genotyping, PCR, ThinPrep (05/11/2021 4:26 PM CUTTING ROOM SUPERVISOR) HPV with Genotyping, ThinPrep, PCR Negative Negative 05/14/2021 5:50 PM CUTTING ROOM SUPERVISOR [facility] Comment: Negative for high risk HPV by nucleic acid amplification. ??The following high risk HPV types were not detected: 16, 18, 31, 33, 35, 39, 45, 51, 52, 56, 58, 59, 66, and 68 Varies 05/11/2021 4:26 PM CUTTING ROOM SUPERVISOR 05/14/2021 6:41 AM CUTTING ROOM SUPERVISOR Elfego Hidalgo M.D. LAB MICROBIOLOGY - GENERAL ORDERABLES [facility] [place] [address], [facility] in [place] [address] [place] [address] * HIV-1/-2 Ag and Ab Scrn, Plasma [...] Hidalgo M.D. LAB MICROBIOLOGY - BLOOD ORDERABLES [facility] [address] [place] [address], [facility] in [address] [address] * Chlamydia / gonorrhoeae Amplified RNA (02/16/2018 3:05 PM CDT) Source VAGINA 02/17/2018 11:14 AM CDT [facility] Chlamydia trachomatis amplified RNA Negative Negative 02/17/2018 11:14 AM CDT [facility] Comment: ----ADDITIONAL INFORMATION---- This report is intended for use in clinical monitoring and management of patients. It is not intended for use in medical-legal applications. Source VAGINA 02/17/2018 11:14 AM CDT [facility] Neisseria gonorrhoeae amplified RNA Negative Negative 02/17/2018 11:14 AM CDT [facility] Comment: ----ADDITIONAL INFORMATION---- This report is intended for use in clinical monitoring and management of patients. It is not intended for use in medical-legal applications. Varies (Vagina) 02/16/2018 3 :05 PM CDT 02/16/2018 11:23 PM CDT Matheus Merritt M.D. LAB MICROBIOLOGY - GENERAL ORDERABLES [facility] [address] [place] [address], [facility] from Last 3 Months or Most Recently Relevant to Health Maintenance Care Teams Survey Rodman Relationship Specialty Start Date End Date Elsewhere, Pcp PCP - General Internal Medicine 11/21/21
--- OUTSIDE RECORDS SUMMARY | 2024-03-25 10:49 | XMS_ITS | Encounter Summary ---
Author Organization [facility] Address [address] [place] [address] Care Team Providers Care Commercial Real Estate Attorney Name Role Phone Jayshree Garcia APRN, CNM Primary Care Provi vahid Reason for Visit * Reason Comments Ultrasound L2- poly and LGA on outside US Encounter Details Date Type Department Care Team (Late st Contact Info) Description 03/10/2024 PRE VISIT [facility] [address] [address] Vy Piedra RN Ultrasound (L2- [...] on filedocumented in this encounter Care Teams Commercial Real Estate Attorney Relationship Specialty Start Date End Date Jayshree Garcia APRN CNM PCP - General 03/10/24 documented as of this encounter
--- OUTSIDE RECORDS SUMMARY | 2024-03-25 10:49 | XMS_ITS ---
Author Organization [facility] Address [address] [place] [address] Care Team Providers Care Spouting Installer Name Role Phone Unavailable Unavailable Unavailable Surgery Details Not on file Complications Check Surgery Details section. Procedure Estimated Blood Loss Check Surgery Details section. Procedure Findings Check Surgery Details section. Procedure Specimens Taken Check Surgery Details section.
--- OUTSIDE RECORDS SUMMARY | 2024-03-25 10:49 | XMS_ITS | Encounter Summary ---
Author Organization [place] Address [address] [place] [address] Care Team Providers Care Cardiac Rn Name Role Phone Jayshree Garcia APRN [facility] Primary Care Provi vahid Reason for Visit * Diagnostic Imaging Ultrasound (Routine) - Pending Review Specialty Diagnoses / Procedures Referred By Brandy morel Referred To Contact Radiology. Diagnoses related condition, antepartum Procedures [facility] US Comprehensive Single Jayshree Garcia APRN [facility] [address] [place] [address] Referral ID Status Reason Start Date Expiration Date V isits Requested Visits Authorized [id number] Pending Review 03/10/2024 03/10/2025 1 1 Encounter Details Date Type Department Care Team (Latest Contact Info) Description 03/11/2024 1:30 PM CDT Ancillary Procedure [facility] Maternal Medicine Center [address] [phone] Jayshree Garcia APRN [facility] [address] [place] [address] Adalberto Plascencia MD [address] [place] [address] related condition, antepartum Social History Tobacco [...] Procedure Name Priority Date/Time Associated Diagnosis Comments [facility] US COMPREHENSIVE SINGLE Routine 03/11/2024 2:27 PM CDT related condition, antepartum documented in this encounter Results * [facility] US Comprehensive Single (03/11/2024 2:27 PM [...] ? Study Date: ??03/11/2024 1:29pm Pat. NO: ??[id number] ?Referring ??MD: JAYSHREE GARCIA Site: ? Field Traffic Investigator: Marni Elizondo [facility] : ??1995 ?Age: ?? 28 ----- INDICATION [...] lb 15 ?oz EFW by ? Hadlock ([id number]) Head / Face / Neck Biometry: Gas Mask Inspector ?5.0 ? mm CM ? 7.8 ? [...] view. RVOT view. LVOT view. 3-vessel view. 9-ltfdfc-ijujckj view. Situs. Aortic arch view. Bicaval view. [...] assessment every 2 weeks and delivery at 14u6h-30h0v for mild polyhydramnios. We presume this will [...] MICHELE Study Date: 03/11/2024 1:29pm Pat. NO: [id number] Referring MD: JAYSHREE GARCIA Site: Field Traffic Investigator: Marni Elizondo RDMS : 1995 Age: 28 [...] EFW (lb,oz) 6 lb 15oz EFW by Hadlock([id number]) Head / Face / Neck Biometry: Gas Mask Inspector 5.0mm CM 7.8mm Nasal bone 9.0 mm ANATOMY ----- The following structures appear normal: Head / Neck Cranium. Head size. Head shape.Lateral ventricles. Choroid plexus. Midline falx. Cavum septi pellucidi.Cerebellum. Cisterna magna. Parenchyma. Thalami. Vermis. Neck. Face Lips. Profile. Nose. Maxilla.Mandible. Orbits. Lens. Heart / Thorax 4-chamber view. RVOT view. LVOT view.3-vessel view. 7-wqwoms-ayzgcej view. Situs. Aortic arch view. Bicavalview. Ductal [...] AF assessment every 2 weeks anddelivery at 95d6w-14j9m for mild polyhydramnios. We presume this will [...] with mild polyhydramnios. Jayshree Garcia APRN, CNM [facility] US ORDERABLES documented in this encounter Visit Diagnoses Diagnosis related condition, antepartum documented in this encounter Care Teams Cardiac Rn Relationship Specialty Start Date End Date Jayshree Garcia APRN CNM PCP - General 03/10/24 documented as of this encounter
--- OUTSIDE RECORDS SUMMARY | 2024-03-25 10:49 | XMS_ITS | Encounter Summary ---
Author Organization [place] Address [address] [place] [address] Care Team Providers Care Dental Treatment Coordinator Name Role Phone Jayshree Garcia APRN, CNM [...] on filedocumented in this encounter Care Teams Dental Treatment Coordinator Relationship Specialty Start Date End Date Jayshree Garcia APRN CNM PCP - General 03/10/24 documented as of this encounter
--- OUTSIDE RECORDS SUMMARY | 2024-03-25 10:49 | XMS_ITS | Encounter Summary ---
Author Organization [place] Address [address] [place] [address] Care Team Providers Care Coal Mine Inspector Name Role Phone Jayshree Garcia APRN, CNM Primary Care Provi vahid Reason for Referral * Diagnostic Imaging Ultrasound (Routine) - Pending Review Specialty Diagnoses / Procedures Referred By Gelyac t Referred To Contact Radiology. Diagnoses related condition, antepartum Procedures [facility] US Comprehensive Single Jayshree Garcia APRN CNM [facility] [address] [place] [address] Referral ID Status Reason Start Date Expiration Date V isits Requested Visits Authorized [id number] Pending Review 03/10/2024 03/10/2025 1 1 * Consultation (Priority: 1-2 Weeks) - Pending Review Specialty Diagnoses / Procedures Referred By Bradny morel Referred To Contact Diagnoses related condition, antepartum Jayshree Garcia APRN [facility] [address] [place] [address] [facility]aternal [facility] [address] [place] [address] Referral ID Status Reason Start Date Expiration Date V isits Requested Visits Authorized [id number] Pending Review 03/10/2024 03/10/2025 1 1 Question Answer Preferred Location: [facility] JOAQUÍN 04/04/2024 Ultrasound Comprehensive US (>than 18 [...] Consultation No Genetic Counseling Consultation: No fax [facility] - Jayshree Garcia - ([phone]) Comments There is no height or weight [...] st Contact Info) Description 03/10/2024 Transcribe Orders [facility] Maternal Medicine Center [place] [address] [place] [address] Jayshree Garcia APRN CNM [facility] [address] [place] [address] related condition, antepartum (Primary Dx) Social History [...] documented as of this encounter Results * [facility] US Comprehensive Single (03/11/2024 2:27 PM CDT) [...] ? Study Date: ??03/11/2024 1:29pm Pat. NO: ??[id number] ?Referring ??: JAYSHREE GARCIA Site: ? Support Manager: Marni Elizondo RDMS : ??1995 ?Age: ?? [...] ?6 lb 15 ?oz EFW by ? [facility] ([id number]) Head / Face / Neck Biometry: Acute Care Certified Nursing Assistant ?5.0 ? mm CM ? 7.8 ? [...] view. RVOT view. LVOT view. 3-vessel view. 6-zagjfv-visgbgg view. Situs. Aortic arch view. Bicaval view. [...] assessment every 2 weeks and delivery at 64r2p-35s0p for mild polyhydramnios. We presume this will [...] MICHELE Study Date: 03/11/2024 1:29pm Pat. NO: [id number] Referring MD: JAYSHREE GARCIA Site: Support Manager: Marni Elizondo RDMS : 1995 Age: 28 [...] EFW (lb,oz) 6 lb 15oz EFW by Hadlock([id number]) Head / Face / Neck Biometry: Acute Care Certified Nursing Assistant 5.0mm CM 7.8mm Nasal bone 9.0 mm ANATOMY ----- The following structures appear normal: Head / Neck Cranium. Head size. Head shape.Lateral ventricles. Choroid plexus. Midline falx. Cavum septi pellucidi.Cerebellum. Cisterna magna. Parenchyma. Thalami. Vermis. Neck. Face Lips. Profile. Nose. Maxilla.Mandible. Orbits. Lens. Heart / Thorax 4-chamber view. RVOT view. LVOT view.3-vessel view. 0-suqmlh-ieklear view. Situs. Aortic arch view. Bicavalview. Ductal [...] AF assessment every 2 weeks anddelivery at 59m0s-82l0u for mild polyhydramnios. We presume this will [...] with mild polyhydramnios. Jayshree Garcia APRN, CNM [facility] US ORDERABLES documented in this encounter Visit Diagnoses Diagnosis related condition, antepartum- Primary related condition, antepartum documented in this encounter Care Teams Coal Mine Inspector Relationship Specialty Start Date End Date Jayshree Garcia APRN CNM PCP - General 03/10/24 documented as of this encounter
--- OUTSIDE RECORDS SUMMARY | 2024-03-25 10:49 | XMS_ITS | Encounter Summary ---
Author Organization [place] Address [address] [place] [address] Care Team Providers Care Supervisor Correspondence Section Name Role Phone Jayshree Garcia APRN, CNM Primary Care Provi vahid Encounter Details Date Type Department Care Team (Late st Contact Info) Description 03/10/2024 Medical Correspondence [facility] Health Information Management [address] [facility] [address] [place] [address] Scan, Non-Provider Social History Tobacco Use Types [...] on filedocumented in this encounter Care Teams Supervisor Correspondence Section Relationship Specialty Start Date End Date Jayshree Garcia APRN CNM PCP - General 03/10/24 documented as of this encounter
--- OUTSIDE RECORDS SUMMARY | 2024-03-25 10:49 | XMS_ITS | Clinical Summary ---
Author Organization [facility] Address [address] [place] [address] Care Team Providers Care Pcb Designer Name Role Phone Elsewhere, Pcp Primary Care Provider Unavailabl e Source Comments Patient records contain information from all sites at [facility]. For routine questions regarding patient records, call [phone] during business hours, M-F 8:00 AM - 5:00 PM Central Time. Record requests for emergency care only can be directed to [phone] at any time.[facility] Allergies No known active allergies Medications Medication [...] (E coil) 1st trimester, asymptomatic, did not brick picker abx rx until 15 wks. Treated [...] How often do you attend chur or orthodox services? 1 to 4 times per year 06/12/2021 Do you belong to any clubs o r organizations such as gnosticism groups, unions, fraternal or athletic groups, or [...] Answer Date Recorded PHQ-2 Score 0 11/29/2021 [facility] of Occupat ional Health - Occupational Stress [...] place to sleep or slept in a custodial (including now)? No 06/12/2021 Nutrition Answer Date [...] Sex Assigned at Female 05/06/2018 3:40 PM CRIB ATTENDANT Gender Identity Female 05/06/2018 3:40 PM CRIB ATTENDANT Sexual Orientation Straight 05/06/2018 3: 40 PM CRIB ATTENDANT Last Filed Vital Signs Vital Sign Reading [...] GENOTYPING, PCR, THINPREP Routine 05/11/2021 4:26 PM CRIB ATTENDANT HIV-1/-2 AG AND AB SCRN, PLASMA Routine 04/19/2021 10:48 AM CDT Encounter For Supervision Of Other Normal Unspecified Trimester CHLAMYDIA/GONORRHOE AE AMPLIFIED RNA Routine 02/16/2018 3:05 PM CDT Encounter For Supervision Of Other Normal Unspecified Trimester from Last 3 Months or Most Recently Relevant to Health Maintenance Results * HPV with Genotyping, PCR, ThinPrep (05/11/2021 4:26 PM CRIB ATTENDANT) HPV with Genotyping, ThinPrep, PCR Negative Negative 05/14/2021 5:50 PM CRIB ATTENDANT [facility] Comment: Negative for high risk HPV by nucleic acid amplification. ??The following high risk HPV types were not detected: 16, 18, 31, 33, 35, 39, 45, 51, 52, 56, 58, 59, 66, and 68 Varies 05/11/2021 4:26 PM CRIB ATTENDANT 05/14/2021 6:41 AM CRIB ATTENDANT Elfego Hidalgo M.D. LAB MICROBIOLOGY - GENERAL ORDERABLES [facility] [address] [place] [address], [facility] [place] [address] * HIV-1/-2 Ag and Ab Scrn, Plasma [...] P Negative Negative 04/20/2021 11:00 AM CDT [facility] Comment: Negative result does not rule out HIV infection. If exposure to HIV infection occurred <14 days ago, contact the laboratory to request addition of HIV-1 RNA detection / quantification test. Blood (Blood, Venous) 04/19/2021 10:48 AM CDT 04/19/2021 3:10 PM CDT Elfego Hidalgo M.D. LAB MICROBIOLOGY - BLOOD ORDERABLES [facility] [address] [place] [address], [facility] in [address] [address] * Chlamydia / gonorrhoeae Amplified RNA (02/16/2018 3:05 PM CDT) Source VAGINA 02/17/2018 11:14 AM CDT [facility] Chlamydia trachomatis amplified RNA Negative Negative 02/17/2018 11:14 AM CDT [facility] Comment: ----ADDITIONAL INFORMATION---- This report is intended for use in clinical monitoring and management of patients. It is not intended for use in medical-legal applications. Source VAGINA 02/17/2018 11:14 AM CDT [facility] Neisseria gonorrhoeae amplified RNA Negative Negative 02/17/2018 11:14 AM CDT [facility] Comment: ----ADDITIONAL INFORMATION---- This report is intended for use in clinical monitoring and management of patients. It is not intended for use in medical-legal applications. Varies (Vagina) 02/16/2018 3 :05 PM CDT 02/16/2018 11:23 PM CDT Matheus Merritt M.D. LAB MICROBIOLOGY - GENERAL ORDERABLES [facility] [address] [place] [address], [facility] from Last 3 Months or Most Recently Relevant to Health Maintenance Care Teams Pcb Designer Relationship Specialty Start Date End Date Elsewhere, Pcp PCP - General Internal Medicine 11/21/21
--- OUTSIDE RECORDS SUMMARY | 2024-03-25 10:49 | XMS_ITS | Encounter Summary ---
Author Organization [place] Address [address] [place] [address] Care Team Providers Care Craft Manager Name Role Phone Jayshree Garcia APRN [facility] Primary Care Provi vahid Reason for Visit * Reason Comments Ultrasound L2 for polyhydramnio s and LGA on outside scan Encounter Details Date Type Department Care Team (Late st Contact Info) Description 03/11/2024 2:00 PM CDT Office Visit [facility] Maternal Medicine Center [address] [place] [phone] Jayshree Garcia APRN [facility] Women[facility] [address] [place] [address] Adalberto Plascencia MD [address] [place] [address] [address] [place], [place] [address] Suspected abnormality affecting management of mother, single [...] is a at 36w4d who presents to [facility] for a comprehensive ultrasound. Pt reports positive [...] affecting documented in this encounter Care Teams Craft Manager Relationship Specialty Start Date End Date Jayshree Garcia APRN CNM PCP - General 03/10/24 documented as of this encounter
--- OUTSIDE RECORDS SUMMARY | 2024-03-25 10:49 | XMS_ITS | Referral Summary ---
Author Organization [place] Address [address] [place] [address] Care Team Providers Care Inpatient Care Manager Rn Name Role Phone Jayshree Garcia APRN, CNM Primary Care Provi vahid Adalberto Plascencia MD Unavailable [phone] Encounters Date Type Department Care Team Description 03/11/2024 Travel 03/11/2024 2:00 PM CDT Office Visit [facility] Maternal Medicine [address] [place] [phone] Jayshree Garcia APRN CNM Contag, Stephen A, MD Suspected abnormality affecting management of mother, single or unspecified fetus (Primary Dx); Suspected anomaly not found; Polyhydramnios affecting 03/11/2024 1:30 PM CDT Ancillary Procedure [facility] [address] [place] [phone] Jayshree Garcia APRN CNM Contag, Stephen A, MD related condition, antepartum 03/10/2024 Medical Correspondence [facility] Information Management [address] [facility] [address] [place] [address] Scan, Non-Provider 03/10/2024 PRE VISIT [facility] [address] [place] [phone] Vy Piedra RN Ultrasound (L2- poly and LGA on outside US ) 03/10/2024 Transcribe Orders [facility] Maternal Medicine [facility] [address] [facility] [address] [place] [address] Jayshree Garcia APRN Mark related [...] Procedure Name Priority Date/Time Associated Diagnosis Comments [facility] COMPREHENSIVE SINGLE Routine 03/11/2024 2:27 PM CDT related condition, antepartum LAB RESULT - HIM SCAN 02/29/2024 12:00 AM CDT from Last 3 Months Results * [facility] Comprehensive Single (03/11/2024 2:27 PM CDT) Anatomical [...] ? Study Date: ??03/11/2024 1:29pm Pat. NO: ??[id number] ?Referring ??MD: [facility] Site: ? Instructor Traffic Safety: Marni Elizondo RDMS : ??1995 ?Age: ?? [...] lb 15 ?oz EFW by ? Hadlock ([id number]) Head / Face / Neck Biometry: Newspaper Writer ?5.0 ? mm CM ? 7.8 ? [...] view. RVOT view. LVOT view. 3-vessel view. 3-mchysy-ydtldbc view. Situs. Aortic arch view. Bicaval view. [...] assessment every 2 weeks and delivery at 27c3m-86z5k for mild polyhydramnios. We presume this will [...] MICHELE Study Date: 03/11/2024 1:29pm Pat. NO: [id number] Referring MD: JAYSHREE GARCIA Site: Instructor Traffic Safety: Marni Elizondo RDMS : 1995 Age: 28 [...] EFW (lb,oz) 6 lb 15oz EFW by Hadlock([id number]) Head / Face / Neck Biometry: Newspaper Writer 5.0mm CM 7.8mm Nasal bone 9.0 mm ANATOMY ----- The following structures appear normal: Head / Neck Cranium. Head size. Head shape.Lateral ventricles. Choroid plexus. Midline falx. Cavum septi pellucidi.Cerebellum. Cisterna magna. Parenchyma. Thalami. Vermis. Neck. Face Lips. Profile. Nose. Maxilla.Mandible. Orbits. Lens. Heart / Thorax 4-chamber view. RVOT view. LVOT view.3-vessel view. 2-gizrnu-tbaxnzz view. Situs. Aortic arch view. Bicavalview. Ductal [...] AF assessment every 2 weeks anddelivery at 34i1x-20t3v for mild polyhydramnios. We presume this will [...] consistent with mild polyhydramnios. Jayshreechristopher Garcia APRN [facility] US ORDERABLES * Lab Result - HIM Scan (02/29/2024 12:00 AM CDT) 02/29/2024 Provider Outside NON-BEAKER LAB TE STING from Last 3 Months Care Teams Inpatient Care Manager Rn Relationship Specialty Start Date End Date Jayshree Garcia APRN CNM PCP - General 03/10/24 Adalberto Plascencia MD [address] [address] Assigned OBGYN Provider 03/15/24
--- OUTSIDE RECORDS SUMMARY | 2024-03-25 10:49 | XMS_ITS | Clinical Summary ---
Author Organization [facility] Address [place], [place] [address] Care Team Providers Care Radiotelephone Technical Operator Name Role Phone Elfego Hidalgo MD Primary [...] (E coil) 1st trimester, asymptomatic, did not pecan picker abx rx until 15 wks. Treated [...] Comments Blood Pressure 130/72 08/23/2018 10:00 AM AUTOMOBILE TAILLIGHT ASSEMBLER Pulse 60 08/23/2018 10:00 AM AUTOMOBILE TAILLIGHT ASSEMBLER Temperature 36.7 ??C (98 ??F) 08/23/2018 10:00 AM AUTOMOBILE TAILLIGHT ASSEMBLER Respiratory Rate 18 08/23/2018 10:00 AM AUTOMOBILE TAILLIGHT ASSEMBLER Oxygen Saturation 100% 08/21/2018 5:02 PM AUTOMOBILE TAILLIGHT ASSEMBLER Inhaled Oxygen Concentration - - Weight 71.8 kg (158 lb 4.6 oz) 08/21/2018 6:36 A M AUTOMOBILE TAILLIGHT ASSEMBLER Height 167.6 cm (5' 6) 08/21/2018 6:36 AM AUTOMOBILE TAILLIGHT ASSEMBLER Body Mass Index 25.55 08/21/2018 6:36 AM AUTOMOBILE TAILLIGHT ASSEMBLER Plan of Treatment Health Maintenance Due Date Last Done Comments Tdap 11/07/2006 Depression screening for age 12+ 2007 HIV for age 15-65 11/07/2010 BMI (ht and wt on same day) for age 18+ 11/07/2013 Hepatitis C screening for ag e 18-79 11/07/2013 Tetanus booster 2015 Pap test for age 21-65 11/07/2016 COVID-19 vaccine series (2023- season) 2024 Influenza for age 9-49 02/22/2024 [...] 7:44 AM 10/10/2011 12:34 AM Care Teams Radiotelephone Technical Operator Relationship Specialty Start Date End Date Elfego Hidalgo MD [address] [facility] [place] [address] PCP - General Family Practice 11/14/21
--- OUTSIDE RECORDS SUMMARY | 2024-03-25 10:49 | XMS_ITS | Clinical Summary ---
Author Organization [place] Address [address] [place] [address] Care Team Providers Care Lacquer Sizer Name Role Phone Jayshree Garcia APRN, CNM Primary Care Provi vahid Adalberto Plascencia MD Unavailable [phone] Encounters Date Type Department Care Team Description 03/11/2024 2:00 PM CDT Office Visit [facility] Maternal Medicine [address] [place] [phone] Jayshree Garcia APRN CNM Contag, Stephen A, MD Suspected abnormality affecting management of mother, single or unspecified fetus (Primary Dx); Suspected anomaly not found; Polyhydramnios affecting 03/11/2024 1:30 PM CDT Ancillary Procedure [facility] Medicine [address] [place] [phone] Jayshree Garcia APRN CNM Contag, Stephen A, MD related condition, antepartum 03/11/2024 Travel 03/10/2024 Medical Correspondence [facility] Information Management [address] [facility] [address] [place] [address] Scan, Non-Provider 03/10/2024 PRE VISIT [facility] Medicine [address] [place] [phone] Vy Piedra RN Ultrasound (L2- poly and LGA on outside US ) 03/10/2024 Transcribe Orders [facility] Maternal Medicine [facility] [address] [facility] [address] [place] [phone] Jayshree Garcia APRN CNM related condition, antepartum [...] Procedure Name Priority Date/Time Associated Diagnosis Comments [facility] COMPREHENSIVE SINGLE Routine 03/11/2024 2:27 PM CDT related condition, antepartum LAB RESULT - HIM SCAN 02/29/2024 12:00 AM CDT from Last 3 Months Results * [facility] US Comprehensive Single (03/11/2024 2:27 PM CDT) [...] ? Study Date: ??03/11/2024 1:29pm Pat. NO: ??[id number] ?Referring ??MD: JAYSHREE ACEVEDOPHAL Site: ? Health Aid: Marni Elizondo RDMS : ??1995 ?Age: ?? [...] ?6 lb 15 ?oz EFW by ? [facility] ([id number]) Head / Face / Neck Biometry: Blueprint Maker ?5.0 ? mm CM ? 7.8 ? [...] view. RVOT view. LVOT view. 3-vessel view. 4-lpcmlh-opkuvuq view. Situs. Aortic arch view. Bicaval view. [...] assessment every 2 weeks and delivery at 31j4e-26u6f for mild polyhydramnios. We presume this will [...] MICHELE Study Date: 03/11/2024 1:29pm Pat. NO: [id number] Referring MD: JAYSHREE GARCIA Site: Health Aid: Marni Elizondo RDMS : 1995 Age: 28 [...] EFW (lb,oz) 6 lb 15oz EFW by Hadlock([id number]) Head / Face / Neck Biometry: Blueprint Maker 5.0mm CM 7.8mm Nasal bone 9.0 mm ANATOMY ----- The following structures appear normal: Head / Neck Cranium. Head size. Head shape.Lateral ventricles. Choroid plexus. Midline falx. Cavum septi pellucidi.Cerebellum. Cisterna magna. Parenchyma. Thalami. Vermis. Neck. Face Lips. Profile. Nose. Maxilla.Mandible. Orbits. Lens. Heart / Thorax 4-chamber view. RVOT view. LVOT view.3-vessel view. 5-xjvdbr-zvxivul view. Situs. Aortic arch view. Bicavalview. Ductal [...] AF assessment every 2 weeks anddelivery at 29x2c-76v6s for mild polyhydramnios. We presume this will [...] STING from Last 3 Months Care Teams Lacquer Sizer Relationship Specialty Start Date End Date Barber JayshreeEMILY arriola CNM PCP - General 03/10/24 Adalberto Plascencia MD [address] [facility] [address] [place], [place] [address] Assigned OBGYN Provider 03/15/24
== END 2024-03-25 10:46 | disposition home or self-care (01) ==
PROVIDERS: Visit Provider Midwife
DX: Z34.93 Encounter for supervision of normal pregnancy, unspecified, third trimester (principal); Z3A.38 38 weeks gestation of pregnancy
CPT/HCPCS: 76819

== ENCOUNTER 2024-03-29 07:33 | Inpatient (IN) | payer MEDICAID, SELFPAY ==
[2024-03-29] VITALS (25 sets, daily range): BP systolic 97–122; BP diastolic 34–78; PULSE 60–88; RESP 16–19; TEMP 35.6–36.7; O2SAT 97–99; BMI 27.0
--- OUTSIDE RECORDS SUMMARY | 2024-03-29 07:38 | XMS_ITS | Encounter Summary ---
Author Organization [place] Address [address] [place] [address] Care Team Providers Care Group Teacher Name Role Phone Jayshree Garcia APRN, CNM [...] on filedocumented in this encounter Care Teams Group Teacher Relationship Specialty Start Date End Date Jayshree Garcia APRN CNM PCP - General 03/10/24 documented as of this encounter
--- OUTSIDE RECORDS SUMMARY | 2024-03-29 07:38 | XMS_ITS | Clinical Summary ---
Author Organization [place] Address [address] [place] [address] Care Team Providers Care Fitness Worker Name Role Phone Jayshree Garcia APRN, CNM Primary Care Provi vahid Adalberto Plascencia MD Unavailable [phone] Encounters Date Type Department Care Team Description 03/11/2024 2:00 PM CDT Office Visit [facility] Maternal Medicine [address] [place] [phone] Jayshree Garcia APRN CNM Contag, Stephen A, MD Suspected abnormality affecting management of mother, single or unspecified fetus (Primary Dx); Suspected anomaly not found; Polyhydramnios affecting 03/11/2024 1:30 PM CDT Ancillary Procedure [facility] Medicine [address] [place] [phone] Jayshree Garcia APRN CNM Contag, Stephen A, MD related condition, antepartum 03/11/2024 Travel 03/10/2024 Medical Correspondence [facility] Information Management [address] [facility] [address] [place] [address] Scan, Non-Provider 03/10/2024 PRE VISIT [facility] Medicine [address] [place] [phone] Vy Piedra RN Ultrasound (L2- poly and LGA on outside US ) 03/10/2024 Transcribe Orders [facility] Maternal Medicine [facility] [address] [facility] [address] [place] [phone] Jayshree Garcia APRN CNM related condition, antepartum [...] Procedure Name Priority Date/Time Associated Diagnosis Comments [facility] COMPREHENSIVE SINGLE Routine 03/11/2024 2:27 PM CDT related condition, antepartum LAB RESULT - HIM SCAN 02/29/2024 12:00 AM CDT from Last 3 Months Results * [facility] US Comprehensive Single (03/11/2024 2:27 PM [...] ? Study Date: ??03/11/2024 1:29pm Pat. NO: ??[id number] ?Referring ??MD: JAYSHREE ACEVEDOPHAL Site: ? Chef De Froid: Marni Elizondo RDMS : ??1995 ?Age: ?? [...] ?6 lb 15 ?oz EFW by ? [facility] ([id number]) Head / Face / Neck Biometry: Splunk Architect ?5.0 ? mm CM ? 7.8 ? [...] view. RVOT view. LVOT view. 3-vessel view. 9-lekrcj-jugowlr view. Situs. Aortic arch view. Bicaval view. [...] assessment every 2 weeks and delivery at 72u3q-61v9s for mild polyhydramnios. We presume this will [...] MICHELE Study Date: 03/11/2024 1:29pm Pat. NO: [id number] Referring MD: JAYSHREE GARCIA Site: Chef De Froid: Marni Elizondo RDMS : 1995 Age: 28 [...] EFW (lb,oz) 6 lb 15oz EFW by [facility]([id number]) Head / Face / Neck Biometry: Splunk Architect 5.0mm CM 7.8mm Nasal bone 9.0 mm ANATOMY ----- The following structures appear normal: Head / Neck Cranium. Head size. Head shape.Lateral ventricles. Choroid plexus. Midline falx. Cavum septi pellucidi.Cerebellum. Cisterna magna. Parenchyma. Thalami. Vermis. Neck. Face Lips. Profile. Nose. Maxilla.Mandible. Orbits. Lens. Heart / Thorax 4-chamber view. RVOT view. LVOT view.3-vessel view. 9-ppghcs-afwaaux view. Situs. Aortic arch view. Bicavalview. Ductal [...] AF assessment every 2 weeks anddelivery at 19k1r-00m3a for mild polyhydramnios. We presume this will [...] STING from Last 3 Months Care Teams Fitness Worker Relationship Specialty Start Date End Date Barber JayshreeEMILY arriola CNM PCP - General 03/10/24 Adalberto Plascencia MD [address] [facility] [address] [place], [place] [address] Assigned OBGYN Provider 03/15/24
--- OUTSIDE RECORDS SUMMARY | 2024-03-29 07:38 | XMS_ITS | Encounter Summary ---
Author Organization [place] Address [address] [place] [address] Care Team Providers Care Heading Saw Operator Name Role Phone Jayshree Garcia APRN [facility] Primary Care Provi vahid Reason for Visit * Diagnostic Imaging Ultrasound (Routine) - Pending Review Specialty Diagnoses / Procedures Referred By Brandy morel Referred To Contact Radiology. Diagnoses related condition, antepartum Procedures [facility] US Comprehensive Single Jayshree Garcia APRN [facility] [address] [place] [address] Referral ID Status Reason Start Date Expiration Date V isits Requested Visits Authorized [id number] Pending Review 03/10/2024 03/10/2025 1 1 Encounter Details Date Type Department Care Team (Latest Contact Info) Description 03/11/2024 1:30 PM CDT Ancillary Procedure [facility] Maternal Medicine Center [address] [phone] Jayshree Garcia APRN [facility] [address] [place] [address] Adalberto Plascencia MD [address] [place] [address] related condition, antepartum Social History Tobacco [...] Procedure Name Priority Date/Time Associated Diagnosis Comments [facility] US COMPREHENSIVE SINGLE Routine 03/11/2024 2:27 PM CDT related condition, antepartum documented in this encounter Results * [facility] US Comprehensive Single (03/11/2024 2:27 PM CDT) [...] ? Study Date: ??03/11/2024 1:29pm Pat. NO: ??[id number] ?Referring ??MD: JAYSHREE GARCIA Site: ? Transmission Rebuilder: Marni Elizondo [facility] : ??1995 ?Age: ?? 28 ----- INDICATION [...] lb 15 ?oz EFW by ? [facility] ([id number]) Head / Face / Neck Biometry: Blind Eyeletter ?5.0 ? mm CM ? 7.8 ? [...] view. RVOT view. LVOT view. 3-vessel view. 9-lcnsbc-zteumxj view. Situs. Aortic arch view. Bicaval view. [...] assessment every 2 weeks and delivery at 14e4u-06l1d for mild polyhydramnios. We presume this will [...] MICHELE Study Date: 03/11/2024 1:29pm Pat. NO: [id number] Referring MD: JAYSHREE GARCIA Site: Transmission Rebuilder: Marni Elizondo RDMS : 1995 Age: 28 [...] EFW (lb,oz) 6 lb 15oz EFW by [facility]([id number]) Head / Face / Neck Biometry: Blind Eyeletter 5.0mm CM 7.8mm Nasal bone 9.0 mm ANATOMY ----- The following structures appear normal: Head / Neck Cranium. Head size. Head shape.Lateral ventricles. Choroid plexus. Midline falx. Cavum septi pellucidi.Cerebellum. Cisterna magna. Parenchyma. Thalami. Vermis. Neck. Face Lips. Profile. Nose. Maxilla.Mandible. Orbits. Lens. Heart / Thorax 4-chamber view. RVOT view. LVOT view.3-vessel view. 0-zjasru-zhmeslw view. Situs. Aortic arch view. Bicavalview. Ductal [...] AF assessment every 2 weeks anddelivery at 96s6y-32o2w for mild polyhydramnios. We presume this will [...] with mild polyhydramnios. Jayshree Garcia APRN, CNM [facility] US ORDERABLES documented in this encounter Visit Diagnoses Diagnosis related condition, antepartum documented in this encounter Care Teams Heading Saw Operator Relationship Specialty Start Date End Date Jayshree Garcia APRN CNM PCP - General 03/10/24 documented as of this encounter
--- OUTSIDE RECORDS SUMMARY | 2024-03-29 07:38 | XMS_ITS | Encounter Summary ---
Author Organization [facility] Address [address] [place] [address] Care Team Providers Care Retail Account Manager Name Role Phone Jayshree Garcia APRN, CNM Primary Care Provi vahid Reason for Visit * Reason Comments Ultrasound L2- poly and LGA on outside US Encounter Details Date Type Department Care Team (Late st Contact Info) Description 03/10/2024 PRE VISIT [facility] Maternal Medicine Center [address] [phone] Vy Piedra RN Ultrasound [...] on filedocumented in this encounter Care Teams Retail Account Manager Relationship Specialty Start Date End Date Jayshree Garcia APRN CNM PCP - General 03/10/24 documented as of this encounter
--- OUTSIDE RECORDS SUMMARY | 2024-03-29 07:38 | XMS_ITS | Encounter Summary ---
Author Organization [place] Address [address] [place] [address] Care Team Providers Care Data Integration Developer Name Role Phone Jayshree Garcia APRN [facility] Primary Care Provi vahid Reason for Visit * Reason Comments Ultrasound L2 for polyhydramnio s and LGA on outside scan Encounter Details Date Type Department Care Team (Late st Contact Info) Description 03/11/2024 2:00 PM CDT Office Visit [facility] Maternal Medicine Center [address] [place] [phone] Jayshree Garcia APRN [facility] [address] [place] [address] Adalberto Plascencia MD [address] [place] [address] [address] [place], [place] [address] Suspected abnormality affecting management of mother, single [...] is a at 36w4d who presents to [facility] for a comprehensive ultrasound. Pt reports [...] affecting documented in this encounter Care Teams Data Integration Developer Relationship Specialty Start Date End Date Jayshree Garcia APRN CNM PCP - General 03/10/24 documented as of this encounter
--- OUTSIDE RECORDS SUMMARY | 2024-03-29 07:38 | XMS_ITS | Encounter Summary ---
Author Organization [facility] Address [address] [place] [address] Care Team Providers Care Bull Chain Operator Name Role Phone Jayshree Garcia APRN, CNM Primary Care Provi vahid Encounter Details Date Type Department Care Team (Late st Contact Info) Description 03/10/2024 Medical Correspondence [facility] Health Information Management [address] [facility] [address] [place] [address] Scan, Non-Provider Social History Tobacco Use Types [...] on filedocumented in this encounter Care Teams Bull Chain Operator Relationship Specialty Start Date End Date Jayshree Garcia APRN CNM PCP - General 03/10/24 documented as of this encounter
--- OUTSIDE RECORDS SUMMARY | 2024-03-29 07:38 | XMS_ITS | Encounter Summary ---
Author Organization [place] Address [address] [place] [address] Care Team Providers Care C Consultant Name Role Phone Jayshree Garcia APRN, CNM Primary Care Provi vahid Reason for Referral * Diagnostic Imaging Ultrasound (Routine) - Pending Review Specialty Diagnoses / Procedures Referred By Gelyac t Referred To Contact Radiology. Diagnoses related condition, antepartum Procedures [facility] US Comprehensive Single Jayshree Garcia APRN CNM [facility] [address] [place] [address] Referral ID Status Reason Start Date Expiration Date V isits Requested Visits Authorized [id number] Pending Review 03/10/2024 03/10/2025 1 1 * Consultation (Priority: 1-2 Weeks) - Pending Review Specialty Diagnoses / Procedures Referred By Brandy morel Referred To Contact Diagnoses related condition, antepartum Jayshree Garcia APRN [facility] [address] [place] [address] [facility] Maternal Med [address] [facility] [address] [place] [address] Referral ID Status Reason Start Date Expiration Date V isits Requested Visits Authorized [id number] Pending Review 03/10/2024 03/10/2025 1 1 Question Answer Preferred Location: [facility] [place] JOAQUÍN 04/04/2024 Ultrasound Comprehensive US (>than 18 [...] Consultation No Genetic Counseling Consultation: No fax [facility] - Jayshree Garcia - ([phone]) Comments There is no height or weight [...] st Contact Info) Description 03/10/2024 Transcribe Orders [facility] Maternal Medicine Center [place] [address] [facility] [address] [place] [address] Jayshree Garcia APRN CNM [facility] [address] [place] [address] related condition, antepartum (Primary Dx) Social History [...] documented as of this encounter Results * [facility] US Comprehensive Single (03/11/2024 2:27 [...] ? Study Date: ??03/11/2024 1:29pm Pat. NO: ??[id number] ?Referring ??: JAYSHREE GARCIA Site: ? Felting Machine Operator: Marni Elizondo RDMS : ??1995 ?Age: ?? [...] ?6 lb 15 ?oz [facility]FW [facility] ? [facility][id number] Head / Face / Neck Biometry: Shot Core Drill Operator ?5.0 ? mm CM ? 7.8 [...] view. RVOT view. LVOT view. 3-vessel view. 1-nlcpws-akarlmu view. Situs. Aortic arch view. Bicaval view. [...] assessment every 2 weeks and delivery at 56z5y-45q7g for mild polyhydramnios. We presume this will [...] MICHELE Study Date: 03/11/2024 1:29pm Pat. NO: [id number] Referring MD: JAYSHREE GARCIA Site: Felting Machine Operator: Marni Elizondo RDMS : 1995 Age: 28 [...] EFW (lb,oz) 6 lb 15oz EFW by [facility]([id number]) Head / Face / Neck Biometry: Shot Core Drill Operator 5.0mm CM 7.8mm Nasal bone 9.0 mm ANATOMY ----- The following structures appear normal: Head / Neck Cranium. Head size. Head shape.Lateral ventricles. Choroid plexus. Midline falx. Cavum septi pellucidi.Cerebellum. Cisterna magna. Parenchyma. Thalami. Vermis. Neck. Face Lips. Profile. Nose. Maxilla.Mandible. Orbits. Lens. Heart / Thorax 4-chamber view. RVOT view. LVOT view.3-vessel view. 2-nvfsuo-hjffvop view. Situs. Aortic arch view. Bicavalview. Ductal [...] AF assessment every 2 weeks anddelivery at 08g3j-34a2m for mild polyhydramnios. We presume this will [...] antepartum documented in this encounter Care Teams C Consultant Relationship Specialty Start Date End Date Jayshree Garcia APRN CNM PCP - General 03/10/24 documented as of this encounter
--- OUTSIDE RECORDS SUMMARY | 2024-03-29 07:38 | XMS_ITS | Referral Summary ---
Author Organization [facility] Address [address] [place] [address] Care Team Providers Care Carton Machine Operator Name Role Phone Jayshree Garcia APRN, CNM Primary Care Provi vahid Adalberto Plascencia MD Unavailable [phone] Encounters Date Type Department Care Team Description 03/11/2024 Travel 03/11/2024 2:00 PM CDT Office Visit [facility] Maternal Medicine [address] [place] [phone] Jayshree Garcia APRN CNM Contag, Stephen A, MD Suspected abnormality affecting management of mother, single or unspecified fetus (Primary Dx); Suspected anomaly not found; Polyhydramnios affecting 03/11/2024 1:30 PM CDT Ancillary Procedure [facility] Medicine [address] [place] [phone] Jayshree Garcia APRN CNM Contag, Stephen A, MD related condition, antepartum 03/10/2024 Medical Correspondence [facility] Information Management [address] [facility] [address] [place] [address] Scan, Non-Provider 03/10/2024 PRE VISIT [facility] Medicine [address] [place] [phone] Vy Piedra RN Ultrasound (L2- poly and LGA on outside US ) 03/10/2024 Transcribe Orders [facility] Maternal Medicine [facility] [address] [facility] [address] [place] [address] Jayshree Garcia APRN Mark related [...] Procedure Name Priority Date/Time Associated Diagnosis Comments [facility] COMPREHENSIVE SINGLE Routine 03/11/2024 2:27 PM CDT related condition, antepartum LAB RESULT - HIM SCAN 02/29/2024 12:00 AM CDT from Last 3 Months Results * [facility] Comprehensive Single (03/11/2024 2:27 PM [...] ? Study Date: ??03/11/2024 1:29pm Pat. NO: ??[id number] ?Referring ??MD: [facility] Site: ? Senior Net Software Engineer: Marni Elizondo RDMS : ??1995 ?Age: ?? [...] lb 15 ?oz EFW by ? [facility] ([id number]) Head / Face / Neck Biometry: Maintenance Service Technician ?5.0 ? mm CM ? 7.8 ? [...] view. RVOT view. LVOT view. 3-vessel view. 0-oiwdfp-qvmvtmo view. Situs. Aortic arch view. Bicaval view. [...] assessment every 2 weeks and delivery at 92x1n-98d5l for mild polyhydramnios. We presume this will [...] MICHELE Study Date: 03/11/2024 1:29pm Pat. NO: [id number] Referring MD: JAYSHREE GARCIA Site: Senior Net Software Engineer: Marni Elizondo RDMS : 1995 Age: 28 [...] EFW (lb,oz) 6 lb 15oz EFW by [facility]([id number]) Head / Face / Neck Biometry: Maintenance Service Technician 5.0mm CM 7.8mm Nasal bone 9.0 mm ANATOMY ----- The following structures appear normal: Head / Neck Cranium. Head size. Head shape.Lateral ventricles. Choroid plexus. Midline falx. Cavum septi pellucidi.Cerebellum. Cisterna magna. Parenchyma. Thalami. Vermis. Neck. Face Lips. Profile. Nose. Maxilla.Mandible. Orbits. Lens. Heart / Thorax 4-chamber view. RVOT view. LVOT view.3-vessel view. 8-afearx-qonndoo view. Situs. Aortic arch view. Bicavalview. Ductal [...] AF assessment every 2 weeks anddelivery at 64g2u-93u9m for mild polyhydramnios. We presume this will [...] consistent with mild polyhydramnios. Jayshreechristopher Garcia APRN [facility] US ORDERABLES * Lab Result - HIM Scan (02/29/2024 12:00 AM CDT) 02/29/2024 Provider Outside NON-BEAKER LAB TE STING from Last 3 Months Care Teams Carton Machine Operator Relationship Specialty Start Date End Date Jayshree Garcia APRN CNM PCP - General 03/10/24 Adalberto Plascencia MD [address] [address] Assigned OBGYN Provider 03/15/24
--- OUTSIDE RECORDS SUMMARY | 2024-03-29 07:39 | XMS_ITS | Referral Summary ---
Author Organization [facility] Address [address] [place] [address] Care Team Providers Care Behavioral Health Professional Name Role Phone Elsewhere, Pcp Primary Care Provider Unavailabl e Source Comments Patient records contain information from all sites at [facility]. For routine questions regarding patient records, call [phone] during business hours, M-F 8:00 AM - 5:00 PM Central Time. Record requests for emergency care only can be directed to [phone] at any time.[facility] Allergies No known active allergies Medications [...] (E coil) 1st trimester, asymptomatic, did not cook pickled meat abx rx until 15 wks. Treated with [...] any clubs o r organizations such as zoroastrian groups, unions, fraternal or athletic groups, or [...] Answer Date Recorded PHQ-2 Score 0 11/29/2021 [facility] - Occupational Stress [...] place to sleep or slept in a skilled nursing (including now)? No 06/12/2021 Nutrition Answer Date [...] Sex Assigned at Female 05/06/2018 3:40 PM ORCHESTRA LEADER Gender Identity Female 05/06/2018 3:40 PM ORCHESTRA LEADER Sexual Orientation Straight 05/06/2018 3: 40 PM ORCHESTRA LEADER Last Filed Vital Signs Vital Sign Reading [...] GENOTYPING, PCR, THINPREP Routine 05/11/2021 4:26 PM ORCHESTRA LEADER HIV-1/-2 AG AND AB SCRN, PLASMA Routine 04/19/2021 10:48 AM CDT Encounter For Supervision Of Other Normal Unspecified Trimester CHLAMYDIA/GONORRHOE AE AMPLIFIED RNA Routine 02/16/2018 3:05 PM CDT Encounter For Supervision Of Other Normal Unspecified Trimester from Last 3 Months or Most Recently Relevant to Health Maintenance Results * HPV with Genotyping, PCR, ThinPrep (05/11/2021 4:26 PM ORCHESTRA LEADER) HPV with Genotyping, ThinPrep, PCR Negative Negative 05/14/2021 5:[address] [facility] Comment: Negative for high risk HPV by nucleic acid amplification. ??The following high risk HPV types were not detected: 16, 18, 31, 33, 35, 39, 45, 51, 52, 56, 58, 59, 66, and 68 Varies 05/11/2021 4:26 PM ORCHESTRA LEADER 05/14/2021 6:41 AM ORCHESTRA LEADER Elfego Hidalgo M.D. LAB MICROBIOLOGY - GENERAL ORDERABLES [facility] [place] [address], [facility] MKTO [facility] [place] [address] [place] [address] * HIV-1/-2 Ag and Ab Scrn, Plasma [...] Hidalgo M.D. LAB MICROBIOLOGY - BLOOD ORDERABLES [facility] [address] [place] [address], [facility] in [address] [address] * Chlamydia / gonorrhoeae Amplified RNA (02/16/2018 3:05 PM CDT) Source VAGINA 02/17/2018 11:[address] [facility] Chlamydia trachomatis amplified RNA Negative Negative 02/17/2018 11:[address] [facility] Comment: ----ADDITIONAL INFORMATION---- This report is intended for use in clinical monitoring and management of patients. It is not intended for use in medical-legal applications. Source VAGINA 02/17/2018 11:[address] [facility] Neisseria gonorrhoeae amplified RNA Negative Negative 02/17/2018 11:[address] [facility] Comment: ----ADDITIONAL INFORMATION---- This report is intended for use in clinical monitoring and management of patients. It is not intended for use in medical-legal applications. Varies (Vagina) 02/16/2018 3 :05 PM CDT 02/16/2018 11:23 PM CDT Matheus Merritt M.D. LAB MICROBIOLOGY - GENERAL ORDERABLES [facility] [address] [place] [address], [facility] from Last 3 Months or Most Recently Relevant to Health Maintenance Care Teams Behavioral Health Professional Relationship Specialty Start Date End Date Elsewhere, Pcp PCP - General Internal Medicine 11/21/21
--- OUTSIDE RECORDS SUMMARY | 2024-03-29 07:39 | XMS_ITS ---
Author Organization [facility] Address [address] [place] [address] Care Team Providers Care Skinning Machine Feeder Name Role Phone Unavailable Unavailable Unavailable Surgery Details Not on file Complications Check Surgery Details section. Procedure Estimated Blood Loss Check Surgery Details section. Procedure Findings Check Surgery Details section. Procedure Specimens Taken Check Surgery Details section.
--- OUTSIDE RECORDS SUMMARY | 2024-03-29 07:39 | XMS_ITS | Clinical Summary ---
Author Organization [facility] Address [address] [place] [address] Care Team Providers Care Mold Presser Name Role Phone Elsewhere, Pcp Primary Care Provider Unavailabl e Source Comments Patient records contain information from all sites at [facility]. For routine questions regarding patient records, call [phone] during business hours, M-F 8:00 AM - 5:00 PM Central Time. Record requests for emergency care only can be directed to [phone] at any time.[facility] Allergies No known active allergies Medications [...] (E coil) 1st trimester, asymptomatic, did not hop picker abx rx until 15 wks. Treated [...] How often do you attend chur or jewish services? 1 to 4 times per year [...] Answer Date Recorded PHQ-2 Score 0 11/29/2021 [facility] [place] of Occupat ional Health - Occupational Stress [...] place to sleep or slept in a prison (including now)? No 06/12/2021 Nutrition Answer Date [...] Sex Assigned at Female 05/06/2018 3:40 PM HOLE DIGGER Gender Identity Female 05/06/2018 3:40 PM HOLE DIGGER Sexual Orientation Straight 05/06/2018 3: 40 PM HOLE DIGGER Last Filed Vital Signs Vital Sign Reading [...] GENOTYPING, PCR, THINPREP Routine 05/11/2021 4:26 PM HOLE DIGGER HIV-1/-2 AG AND AB SCRN, PLASMA Routine 04/19/2021 10:48 AM CDT Encounter For Supervision Of Other Normal Unspecified Trimester CHLAMYDIA/GONORRHOE AE AMPLIFIED RNA Routine 02/16/2018 3:05 PM CDT Encounter For Supervision Of Other Normal Unspecified Trimester from Last 3 Months or Most Recently Relevant to Health Maintenance Results * HPV with Genotyping, PCR, ThinPrep (05/11/2021 4:26 PM HOLE DIGGER) HPV with Genotyping, ThinPrep, PCR Negative Negative 05/14/2021 5:50 PM HOLE DIGGER [facility] Comment: Negative for high risk HPV by nucleic acid amplification. ??The following high risk HPV types were not detected: 16, 18, 31, 33, 35, 39, 45, 51, 52, 56, 58, 59, 66, and 68 Varies 05/11/2021 4:26 PM HOLE DIGGER 05/14/2021 6:41 AM HOLE DIGGER Elfego Hidalgo M.D. LAB MICROBIOLOGY - GENERAL ORDERABLES [facility] [address] [place] [address], [facility] [place] [address] * HIV-1/-2 Ag and Ab Scrn, Plasma [...] P Negative Negative 04/20/2021 11:00 AM CDT [facility] Comment: Negative result does not rule out HIV infection. If exposure to HIV infection occurred <14 days ago, contact the laboratory to request addition of HIV-1 RNA detection / quantification test. Blood (Blood, Venous) 04/19/2021 10:48 AM CDT 04/19/2021 3:10 PM CDT Elfego Hidalgo M.D. LAB MICROBIOLOGY - BLOOD ORDERABLES [facility] [address] [place] [address], [facility] in [address] [address] * Chlamydia / gonorrhoeae Amplified RNA (02/16/2018 3:05 PM CDT) Source VAGINA 02/17/2018 11:14 AM CDT [facility] Chlamydia trachomatis amplified RNA Negative Negative 02/17/2018 11:14 AM CDT [facility] Comment: ----ADDITIONAL INFORMATION---- This report is intended for use in clinical monitoring and management of patients. It is not intended for use in medical-legal applications. Source VAGINA 02/17/2018 11:14 AM CDT [facility] Neisseria gonorrhoeae amplified RNA Negative Negative 02/17/2018 11:14 AM CDT [facility] Comment: ----ADDITIONAL INFORMATION---- This report is intended for use in clinical monitoring and management of patients. It is not intended for use in medical-legal applications. Varies (Vagina) 02/16/2018 3 :05 PM CDT 02/16/2018 11:23 PM CDT Matheus Merritt M.D. LAB MICROBIOLOGY - GENERAL ORDERABLES [facility] [address] [place] [address], [facility] from Last 3 Months or Most Recently Relevant to Health Maintenance Care Teams Mold Presser Relationship Specialty Start Date End Date Elsewhere, Pcp PCP - General Internal Medicine 11/21/21
--- OUTSIDE RECORDS SUMMARY | 2024-03-29 07:39 | XMS_ITS | Clinical Summary ---
Author Organization [facility] Address [place], [place] [address] Care Team Providers Care Lottery Manager Name Role Phone Elfego Hidalgo MD Primary [...] (E coil) 1st trimester, asymptomatic, did not clam picker abx rx until 15 wks. Treated [...] Comments Blood Pressure 130/72 08/23/2018 10:00 AM LUMBER KILN OPERATOR Pulse 60 08/23/2018 10:00 AM LUMBER KILN OPERATOR Temperature 36.7 ??C (98 ??F) 08/23/2018 10:00 AM LUMBER KILN OPERATOR Respiratory Rate 18 08/23/2018 10:00 AM LUMBER KILN OPERATOR Oxygen Saturation 100% 08/21/2018 5:02 PM LUMBER KILN OPERATOR Inhaled Oxygen Concentration - - Weight 71.8 kg (158 lb 4.6 oz) 08/21/2018 6:36 A M LUMBER KILN OPERATOR Height 167.6 cm (5' 6) 08/21/2018 6:36 AM LUMBER KILN OPERATOR Body Mass Index 25.55 08/21/2018 6:36 AM LUMBER KILN OPERATOR Plan of Treatment Health Maintenance Due Date [...] 7:44 AM 10/10/2011 12:34 AM Care Teams Lottery Manager Relationship Specialty Start Date End Date Elfego Hidalgo MD [address] [facility] [place] [id number] PCP - General Family Practice 11/14/21
[2024-03-29] MEDS: LACTATED RINGERS 1000 ML 1,000 ML 1200 ML IV (08:27)
--- NOTE | 2024-03-29 08:29 | W.PM.H&PU ---
History & Physical Update History & Physical Update H&P Reviewed and patient assessed: The following changes are noted below H&P Updates: Heart: Regular rate and rhythm without gallop, rub or murmur. Chest: Clear to auscultation bilaterally.
--- NOTE | 2024-03-29 08:29 | PM.PROC ---
Procedure Note Time Seen by Provider: 10:30 Date Seen: 03/29/24 Date of procedure: 03/29/24 Will [facility] bill your pro fee for this procedure?: Yes Procedure: Preoperative diagnosis: 28-year-old 3 para 2001 at 39 and 1/7 weeks admitted for a scheduled repeat low transverse section. polyhydramnios suspected macrosomia anemia viral enterocolitis in Postoperative diagnosis: Same Procedure: Repeat low-transverse section with vacuum assistance Anesthesia: Spinal Surgeon: Thalia Valdovinos MD Traffic Police Officer: N/A Quantitative blood loss: 520 mL IV Fluid: 1500 mL Urine output: 100 mL clear urine at the end of the procedure Drain(s): Alegre to gravity. Specimen: Placenta to pathology: History of a febrile illness during the between 34-36 weeks gestation. Findings: A live male was delivered from the direct OA position with vacuum assistance at 9:54 a.m. Apgars were 7 at 1 min and 9 at 5 min, respectively. weight: 7 lb 10 oz. Nuchal cord(s): Yes, single loose nuchal cord easily reduced at the surgical field. The placenta was delivered spontaneously and complete at 9:57 a.m.. Amniotic fluid: Clear. Normal uterus, fallopian tubes and ovaries were noted. Other findings: The vertex was floating and moving laterally when attempted to manually deliver the head so vacuum assistance was required. Procedure: Dillan was taken to the OR where spinal anesthetic was found be adequate. A Alegre catheter was placed. The patient was then placed in the dorsal supine position with a leftward tilt. She was then prepped and draped in a normal sterile manner. A Pfannenstiel skin incision was made and carried through sharply to the underlying layer of fascia. Fascia was incised in the midline and this incision carried laterally with Betts scissors. The superior aspect of fascial incision was grasped with Goldy clamps, tented up, and the rectus muscles dissected off with a combination of blunt and sharp dissection. The inferior aspect of the fascial incision was not dissected off the rectus muscles. The rectus muscles were in the midline. The peritoneum was entered bluntly. This opening was extended with a combination of blunt and sharp dissection. An Magdi-O self-retaining retractor was placed. A bladder flap was not created. Uterus was incised in a low transverse manner in the midline. This incision carried laterally with blunt pressure on the inferior and superior aspects of the uterine incision. The amniotic sac was ruptured. The 's head and body were attempted to be delivered manually but the vertex was floating and a good purchase could not be obtained manually so a kiwi vacuum was applied, the pressure was placed up to the green area and 1 pull was done to deliver the vertex and body.. The infant was shown to the patient and her support person. The umbilical was clamped and cut after a 30 second delay. The was then handed to waiting [pediatric/nursing] staff. The placenta was delivered [manually/spontaneously]. The uterus was cleared of clots and debris. The uterine incision was re-approximated with the uterus in vivo. The 1st layer using 0-Vicryl in a running, locked manner. The 2nd layer using 0-Monocryl in a running, vertical, imbricating layer. Additional sutures needed for hemostasis: [yes/no]. [Roseanne was applied to the uterine incision]. Excellent hemostasis was confirmed. The Magdi retractor was removed. The rectus muscles [were/were not] reapproximated. The rectus muscles were then closely inspected to verify hemostasis. Hemostasis was obtained with bipolar cautery. The fascia was then reapproximated using 0-Maxon loop in a running manner. The subcutaneous tissue was then irrigated with saline and hemostasis obtained with bipolar cautery. The subcutaneous tissue was reapproximated using 3-0 plain gut in a running manner. The skin was reapproximated using 4-0 Monocryl in a running subcuticular manner. Exophin skin adhesive and a Mepiplex dressing were applied. The patient tolerated this procedure well. Sponge, lap and instrument counts were correct x2 active to the procedure. Patient was taken to the recovery area in stable condition. The patient received 2 g of IV Ancef prior to skin incision. She received 1 g TXA after cord clamp. Anesthesia: regional Estimated blood loss (mL): 520 IV fluids (mL): 1,500 Urine output (mL): 100 Pathology: specimen obtained, sent to pathology Condition: stable Disposition: floor
[2024-03-29 08:36] LABS: Hemoglobin* 11.1 gm/dL (12.0-16.0)
[2024-03-29 08:46] LABS: Basophils Absolute Auto 0.03 K/uL (0.00-0.30); Basophils Percent Auto 0.4 % (0.0-3.0); Eosinophils Absolute Auto 0.23 K/uL (0.00-0.50); Eosinophils Percent Auto 3.4 % (0.0-7.0); Hematocrit 36.3 % (33.0-51.0); Hemoglobin* 11.2 gm/dL (12.0-16.0); Immature Granulocytes Abs Auto 0.06 K/uL (0.00-0.30); Immature Granulocytes Pct Auto 0.9 %; Lymphocytes Percent Auto 16.1 % (20-44); Mean Corpuscular HGB Conc 31 gm/dL (32-36); Mean Corpuscular Hemoglobin 23 pg (26-34); Mean Corpuscular Volume 74 fL (80-100); Monocytes Percent Auto 11.5 % (0.0-11.0); Neutrophils Absolute Auto 4.58 K/uL (1.7-7.0); Neutrophils Percent Auto 67.7 % (42.0-72.0); Platelet Count* 174 K/uL (140-440); RDW Coefficient of Variation % 16.5 % (11.5-15.5); Red Blood Count 4.91 m/uL (4.00-5.20); White Blood Count* 6.77 K/uL (4.50-11.00)
[2024-03-29 08:49] LABS: Slide Review Reflex No
[2024-03-29] MEDS: CEFAZOLIN 2 GM INJ IVP (09:26)
[2024-03-29] MEDS: TRANEXAMIC ACID 100 MG/ML INJ 1000 MG IV (09:57)
[2024-03-29] MEDS: KETOROLAC 30 MG/ML inj IVP ×3 (10:23→23:52)
--- NOTE | 2024-03-29 10:47 | P.NB_ITS ---
Nerve Block Nerve Block Time Seen by Provider: 10:45 Date Seen: 03/29/24 Type of block requested by surgeon for post-operative analgesia: TAP Side: bilateral Time out performed: Yes Verification of patient name: Yes Verification of date of : Yes Site marking: site marked Name of person performing procedure: Lito Continuous monitoring Was continuous monitoring of O2 sat, B/P, insulation and flooring assembler, recorded every 15 minutes?: Yes Procedure Checklist: sterile prep, needles and gloves Ultrasound guided. Images saved: Yes Medications given in 5ml increments after negative aspiration: Marcaine %: 0.25 mL: 30 Needle gauge: 20 and Exparel mL: 10 Patient tolerated procedure well: Yes Additional comments: Needle noted between internal oblique and transversus abdominus. Local spread visualized Block Charges Block Charge (with Pro Fee): TAP Bilateral Use of Ultrasound Machine for Block: Yes- US Guidance/pain block
--- NOTE | 2024-03-29 10:48 | W.ANESCHARGE ---
Anesthesia Charges Start Date/Time Anesthesia Start Date: 03/29/24 Anesthesia Start Time: 09:13 Stop Date/Time Anesthesia Stop Date: 03/29/24 Anesthesia Stop Time: 10:55
[2024-03-30] VITALS (12 sets, daily range): BP systolic 96–106; BP diastolic 56–64; PULSE 75–91; RESP 16; TEMP 36.6–37; O2SAT 96–99
[2024-03-30] MEDS: KETOROLAC 30 MG/ML inj IVP ×3 (05:40→20:46)
[2024-03-30 06:19] LABS: Hemoglobin* 8.7 gm/dL (12.0-16.0)
--- NOTE | 2024-03-30 07:49 | PM.OBPNVD1 ---
OB - PN:Subj Subjective Date Seen: 03/30/24 Patient comments OB post-: no complaints, pain well controlled, tolerating diet and flatus present [place] status: and doing well [place] feeding status: exclusively Narrative: Complications:? anemia? Dillan feels well.? Her pain is well controlled with current medications.? She has no new complaints.? Urinary output is adequate. She initially had difficult urinating but is now voiding without difficulty.? Has a good appetite, is tolerating a general diet, is passing flatus, and has not had a bowel movement.? Has scant amount of rubra lochia.? She is ambulating well.?Her Hgb is 8.7 but she denies feeling light headed, dizzy or fatigued. Encouraged increased dietary iron intake. Will order an iron supplement every other day but she states that she may decline. States that she has beef liver at home that she would prefer to take. Encouraged her to take it every other day after discharge if she declines iron supplement inpatient. She is and feels that is going well. OB - PN: Obj Exam Physical Exam: Vital signs: Temp Pulse Resp BP Pulse Ox O2 Del Method 97.9 F 81 16 99/58 L 96 Room Air 03/30/24 04:50 03/30/24 04:50 03/30/24 06:30 03/30/24 04:50 03/30/24 04:50 03/30/24 04:50 Narrative: GENERAL APPEARANCE:? normal affect, alert, no distress? MOOD:? appropriate? CHEST:? clear to auscultation and percussion? HEART:? regular rate and rhythm? ABDOMEN:? soft, non-tender the uterine fundus is U/2 and is appropriate for the stage of recovery. Incision dressing is clean, dry and intact. Plan to remove today.?? EXTREMITIES:? normal and no edema? OB - PN: Obj Data Labs Labs: Laboratory Results - last 24 hr 03/29/24 03/29/24 03/30/24 08:26 08:26 06:10 WBC 6.77 RBC 4.91 Hgb 11.1 L 11.2 L 8.7 L Hct 36.3 MCV 74 L MCH 23 L MCHC 31 L RDW Coeff of Chon 16.5 H Plt Count 174 Neut % (Auto) 67.7 Lymph % (Auto) 16.1 L [place] % (Auto) 11.5 H Eos % (Auto) 3.4 Baso % (Auto) 0.4 Neut # (Auto) 4.58 Lymph # (Auto) 1.10 [place] # (Auto) 0.80 Eos # (Auto) 0.23 Baso # (Auto) 0.03 Abs Immat Gran (auto) 0.06 Imm/Tot Granulo (auto) 0.9 Blood Type A Positive Antibody Screen NEGATIVE OB - PN: A/P Delivery Plan day: 1 Plan: routine care Comments: Anticipate discharge home tomorrow or the following day per patient preference.
--- NOTE | 2024-03-30 08:37 | W.ANESCHARGE ---
Anesthesia Charges Start Date/Time Anesthesia Start Date: 03/29/24 Anesthesia Start Time: 09:13 Stop Date/Time Anesthesia Stop Date: 03/29/24 Anesthesia Stop Time: 10:55
[2024-03-30] MEDS: FERROUS SULFATE 325 MG TABLET PO (11:13)
[2024-03-30] MEDS: ACETAMINOPHEN 500 MG TABLET 1000 MG PO (19:12)
[2024-03-31] MEDS: IBUPROFEN 600 MG TABLET PO ×3 (01:05→14:05)
[2024-03-31 03:04] LABS: Rapid Plasma Reagin (RPR) Non Reactive (Non Reactive)
[2024-03-31] MEDS: ACETAMINOPHEN 500 MG TABLET 1000 MG PO (04:03)
[2024-03-31 04:04] VITALS: BP 107/70; PULSE 70; RESP 16; TEMP 36.4; O2SAT 99
--- NOTE | 2024-03-31 08:16 | P.DS_ITS ---
DS: Providers Provider Date Seen: 03/31/24 Date of admission: 03/29/24 07:33 Primary care physician: Not a Local Provider Admitting Clinician: Thalia Valdovinos MD Attending Physician on discharge: Marvin BAKER Date of Discharge: 03/31/24 DS: Diagnosis Discharge Diagnosis (1) Status post repeat low transverse section: Status: Acute (2) care and examination of lactating mother: Status: Acute Exam Narrative: Exam Narrative: GENERAL APPEARANCE:? normal affect, alert, no distress MOOD:? appropriate CHEST:? clear to auscultation HEART:? regular rate and rhythm ABDOMEN:? soft, non-tender the uterine fundus is At Umbilicus, Midline and is appropriate for the stage of recovery. EXTREMITIES:? normal and minimal edema Incision: Healing well, no surrounding erythema, abnormal induration or discharge. Dressing has been removed Const: Vital Signs, click to edit/add: Vital Signs - 24 hr 03/30/24 16:45 03/30/24 21:03 03/31/24 04:04 Temperature 98.4 F 98.6 F 97.6 F Pulse Rate [Pulse Oximeter] 91 75 70 Respiratory Rate 16 16 16 Blood Pressure [Ri ght Arm] 102/63 106/64 107/70 Pulse Oximetry 98 99 99 Oxygen Delivery Me thod Room Air Room Air Room Air OB - DS: Summary Hospital Course Hospital Course: Dillan is a 28 y.o. G 7 P 3134 who was admitted to [facility] for scheduled repeat .? She had a section that was uncomplicated. The patient feels well.? The pain is well controlled with current medications.? She has no new complaints.? She is breast feeding and reports things are going well. the patient has done well.? Vitals have been stable.? She has remained afebrile.? Has a good appetite, is tolerating a general diet.? She is voiding without difficulty.? She is passing gas and has not had a bowel movement.? She is ambulating and denies any dizziness.? Has small amount of rubra lochia. Discharge home with baby.? Follow up in 2 weeks and 6 weeks.? , may see if needed? Hgb 8.7. Iron supplement to be supplemented at home with mode of choice per patient preference. For pain control of perineum, breast and pelvic pain, take 600 mg Ibuprofen every 6 hours as needed by mouth or 1000 mg acetaminophen (Tylenol) every 6 hours by mouth as needed. You can alternate these so you are taking something every 3 hours as needed. A heating pad can also be used for your abdomen or breasts.? Docusate Sodium stool softener to be taken up to twice daily until stools return to normal. Peripartum Data Infant delivery method: Repeat Section Procedures: Procedures Operation Date: 03/29/24 09:15 Actual Procedure Side Surgeon p VACUUM-ASSISTED LOW TRANSVERSE Repeat Section Thalia Valdovinos MD complications: none [place] Gender: Male Discharge Plan: Home Status at Discharge Overall status at discharge: patient is progressing back to baseline Time Spent with Patient Time attestation: Total time spent providing and/or coordinating discharge services: Time spent: Less than 30 minutes Discharge Plan Discharge Disposition: Home, Self-Care Date of Admission: 03/29/24 07:33 Attending Provider on Discharge: Jayshree Garcia Primary Care Provider: Provider,Not a Local Condition: Stable Anticipated Discharge Date/Time: 03/31/24 12:00 Discharge Medications: Continued prenat.vits,josie,gxg-tvvp-zryym Tablet 1 tab PO QDAY Hold Instructions: Doctor's Order magnesium 200 mg tablet 200 mg PO QDAY Hold Instructions: Doctor's Order Discharge Orders: Discharge Order (Routine); Ordered 03/31/24 Ordered By: Jayshree Garcia Patient Education: OB Over the Counter Medication Information, OB /Breast Feeding Additional Instructions: Discharge instructions were reviewed with the patient including signs and symptoms of infection and home going medications Lifting Restrictions: 20 pounds for 6 weeks No not submerge incision under water X 2 weeks? Nothing vaginally for 6 weeks: no tampons or intercourse Do not drive while taking narcotic pain medication(s) Off Work or School for 6 weeks Symptoms to report to doctor: * Bleeding that saturates more than one pad per hour * Passing clots larger than the size of a golf ball * Pain not relieved by prescribed medication * Fever above 100.4 degrees Fahrenheit * A foul vaginal odor * Difficulty in emotions, mood, and functions * Thoughts of hurting yourself and/or * Painful, reddened area in your breast * Any drainage, redness, or tenderness in your IV/epidural site * Severe headache that doesn't improve after taking medications * Changes in vision, including temporary loss of vision, blurred vision, and/or light sensitivity * Upper abdominal pain (usually under ribs on the right side) * Decrease in urination or painful, frequent urinating * Chest pain * Shortness of breath * Tenderness or pain with redness and/swelling in the calf(s) of your leg 2-week visit: incision check, discuss feeding concerns, review control options and screen for anxiety/depression. 6-week visit for an annual exam. consultation services are available to all mothers and babies for the first year after delivery.? To make an appointment, please call [phone]. Activity Level: Activity as Tolerated, No strenuous activity and Light activity Discharge Diet: Regular Follow Up Appointments: [facility] [Provider Group] Forms: [place] Info Instructions
[2024-03-31 16:00] VITALS: BP 117/71; PULSE 86; RESP 16; TEMP 37; O2SAT 100
== END 2024-03-31 18:45 | disposition home or self-care (01) | DRG 540 ==
PROVIDERS: Admitting Provider Obstetrics & Gynecology; Visit Provider Obstetrics & Gynecology
PROC: 10D00Z1 Extraction of Products of Conception, Low, Open Approach (ICD-10-PCS; CPT 59514; principal; 2024-03-29 09:00)
DX: O34.211 Maternal care for low transverse scar from previous cesarean delivery (principal); O40.3XX0 Polyhydramnios, third trimester, not applicable or unspecified; G89.18 Other acute postprocedural pain; O99.02 Anemia complicating childbirth; D64.9 Anemia, unspecified; O99.824 Streptococcus B carrier state complicating childbirth; Z37.0 Single live birth; Z3A.39 39 weeks gestation of pregnancy
CPT/HCPCS: 01961; 36415; 64488; 76942; 85018; 85025; 86592; 86850; 86900; 86901; 88307; A9270; C9290; J0665; J0690; J1100; J1200; J1885; J2274; J2405; J2590; J7120

== ENCOUNTER 2024-05-26 08:24 | Outpatient (CLI) | payer OTHER, SELFPAY ==
--- NOTE | 2024-05-26 08:15 | CRLHL7_ITS ---
For Patients: As a result of the Cures Act, medical imaging exams and procedure reports are released immediately into your electronic medical record. You may view this report before your referring provider. If you have questions, please contact your health care provider. RIGHT BREAST ULTRASOUND CLINICAL HISTORY: RIGHT breast lump. COMPARISON: None. TECHNIQUE: Real-time ultrasound imaging of RIGHT breast with imaging documentation. FINDINGS: Targeted RIGHT breast ultrasound performed at 6 o`clock 4 cm from the nipple. Normal breast tissue is present. No fluid collection or mass. IMPRESSION: No suspicious findings. No evidence of abscess. RECOMMENDATIONS: Clinical follow-up. Results and recommendations were discussed with the patient at the time of the exam. A lay language report of this examination will be provided to the patient. BI-RADS Category 1: Negative Dictated by Rio Skelton MD @ 05/26/2024 9:07:46 AM jj/Dictated by: Rio Skelton MD @ 05/26/2024 9:07:00 AM (Electronically Signed)
--- OUTSIDE RECORDS SUMMARY | 2024-05-26 08:26 | XMS_ITS | Referral Summary ---
Author Organization [place] Address [address] [place] [address] Care Team Providers Care Merchandise Support Associate Name Role Phone Jayshree Garcia APRN, CNM Primary Care Provi vahid Adalberto Plascencia MD Unavailable [phone] Encounters Date Type Department Care Team Description 03/11/2024 Travel 03/11/2024 2:00 PM CDT Office Visit [facility] Maternal Medicine [address] [place] [phone] Jayshree Garcia APRN CNM Contag, Stephen A, MD Suspected abnormality affecting management of mother, single or unspecified fetus (Primary Dx); Suspected anomaly not found; Polyhydramnios affecting 03/11/2024 1:30 PM CDT Ancillary Procedure [facility] Medicine [address] [place] [phone] Jayshree Garcia APRN CNM Contag, Stephen A, MD related condition, antepartum 03/10/2024 Medical Correspondence [facility] Information Management [address] [facility] [address] [place] [address] Scan, Non-Provider 03/10/2024 PRE VISIT [facility] Medicine [address] [place] [phone] Vy Piedra RN Ultrasound (L2- poly and LGA on outside US ) 03/10/2024 Transcribe Orders [facility] Maternal Medicine [facility] [address] [facility] [address] [place] [address] Jayshree Garcia APRN CNMark related condition, antepartum (Primary Dx) from Last 3 Months Social History Tobacco Use Types Packs/Day Years Used Date Smoking Tobacco: Never Assessed Estimated Date of Delivery Comme nts Yes 04/04/2024 Based on last me nstrual period of 06/29/2023 Sex and Gender Information Value Date Recorded Sex Assigned at Not on file Legal Sex Female 11:03 AM CDT Gender Identity Not on file Sexual Orientation Not on file Plan of Treatment Not on file Procedures Procedure Name Priority Date/Time Associated Diagnosis Comments [facility] US COMPREHENSIVE SINGLE Routine 03/11/2024 2:27 PM CDT related condition, antepartum LAB RESULT - HIM SCAN 02/29/2024 12:00 AM CDT from Last 3 Months Results * [facility] US Comprehensive Single (03/11/2024 2:27 PM [...] mild polyhydramnios. Narrative 03/11/2024 2:35 PM CDT Comprehensive ----- Pat. Name: TYLER MICHELE Study Date: 03/11/2024 1:29pm Pat. NO: [id number] Referring MD: JAYSHREE GARCIA Site: Casing Builder: Marni Elizondo RDMS : 1995 Age: 28 ----- INDICATION ----- LGA and Polyhydramnios on outside exam METHOD ----- Transabdominal ultrasound examination. View: Sufficient ----- [place] . Number of fetuses: 1 DATING ----- Date Details Gest. age JOAQUÍN LMP 06/29/2023 36 w + 4 d 04/04/2024 Previous U/S 08/26/2023 GA, GA 8 w + 3 d 36 w + 5 d 04/03/2024 U/S 03/11/2024 based upon AC, BPD, Femur, HC 37 w + 5 d 03/27/2024 Assigned dating based on the LMP, selected on 03/11/2024 36 w + 4 d 04/04/2024 GENERAL EVALUATION ----- Cardiac activity present. FHR 128 bpm. movements: present. Presentation: cephalic Placenta: posterior, fundal, No Previa, > 2 cm from internal os Umbilical cord: 3 vessel cord Amniotic fluid: Amount of AF: Polyhydramnios. MVP 8.8 cm. RAMILA 25.1 cm. Q1 9.6 cm, Q2 5.8 cm, Q3 6.2 cm, Q4 3.6 cm BIOMETRY ----- BPD 97.4 mm 39w 6d Hadlock OFD 115.4 mm 36w 3d Nicolaides HC 339.4 mm 39w 0d Hadlock Cerebellum tr 52.6 mm -/- Nicolaides AC 336.7 mm 37w 4d 86% Hadlock Femur 67.0 mm 34w 3d Hadlock Humerus 60.4 mm 35w 0d Leigh Ann Weight Calculation: EFW 3,159 g 72% Hadlock EFW (lb,oz) 6 lb 15 oz EFW by Hadlock ([id number]) Head / Face / Neck Biometry: Paint Crew Supervisor 5.0 mm CM 7.8 mm Nasal bone 9.0 mm ANATOMY ----- The following structures appear normal: Head / Neck Cranium. Head size. Head shape. Lateral ventricles. Choroid plexus. Midline falx. Cavum septi pellucidi. Cerebellum. Cisterna magna. Parenchyma. Thalami. Vermis. Neck. Face Lips. Profile. Nose. Maxilla. Mandible. Orbits. Lens. Heart / Thorax 4-chamber view. RVOT view. LVOT view. 3-vessel view. 1-ctjybg-rthhzsr view. Situs. Aortic arch view. Bicaval view. Ductal arch view. Superior vena cava. Inferior vena cava. Cardiac position. Cardiac size. Cardiac rhythm. Right lung. Left lung. Diaphragm. Abdomen Abdom. wall. Cord insertion. Stomach. Kidneys. Bladder. Liver. Bowel. Genitals. Spine Cervical spine. Thoracic spine. Lumbar spine. Sacral spine. Extremities / Skeleton Arms. Right arm. Right hand. Left arm. Left hand. Legs. Right leg. Right foot. Left leg. Left foot. sex: male. MATERNAL STRUCTURES ----- Cervix Visualized Appearance: Appears Closed Right Ovary Visualized Left Ovary Visualized RECOMMENDATION ----- Continue surveillance with AF assessment every 2 weeks and delivery at [id number]-39j5n for mild polyhydramnios. We presume this will [...] MICHELE Study Date: 03/11/2024 1:29pm Pat. NO: [id number] Referring MD: JAYSHREE GARCIA Site: Casing Builder: Marni Elizondo RDMS : 1995 Age: 28 [...] EFW (lb,oz) 6 lb 15oz EFW by Hadlock([id number]) Head / Face / Neck Biometry: Paint Crew Supervisor 5.0mm CM 7.8mm Nasal bone 9.0 mm ANATOMY ----- The following structures appear normal: Head / Neck Cranium. Head size. Head shape.Lateral ventricles. Choroid plexus. Midline falx. Cavum septi pellucidi.Cerebellum. Cisterna magna. Parenchyma. Thalami. Vermis. Neck. Face Lips. Profile. Nose. Maxilla.Mandible. Orbits. Lens. Heart / Thorax 4-chamber view. RVOT view. LVOT view.3-vessel view. 0-ogjjoq-dnegvnv view. Situs. Aortic arch view. Bicavalview. Ductal [...] AF assessment every 2 weeks anddelivery at 19p4s-19j2p for mild polyhydramnios. We presume this will [...] amniotic fluid volume consistent with mild polyhydramnios. [facility] PROPERTY ANALYST CNM IMG MF US ORDERABL ES Edited Result - Final * Lab Result - HIM Scan (02/29/2024 12:00 AM CDT) 02/29/2024 Provider Outside NON-BEAKER LAB TESTING Final Result from Last 3 Months Insurance [id number] [place] [id number] [place] Care Teams Merchandise Support Associate Relationship Specialty Start Date End Date Jayshree Garcia APRN CNM PCP - General 03/10/24 Adalberto Plascencia MD [address] [address] Assigned OBGYN Provider 03/15/24
--- OUTSIDE RECORDS SUMMARY | 2024-05-26 08:26 | XMS_ITS | Clinical Summary ---
Author Organization [facility] Address [address] [place] [address] Care Team Providers Care Weatherization Operations Manager Name Role Phone Jayshree Garcia APRN, CNM Primary Care Provi vahid Adalberto Plascencia MD Unavailable [phone] Encounters Date Type Department Care Team Description 03/11/2024 2:00 PM CDT Office Visit [facility] Maternal Medicine [address] [place] [phone] Jayshree Garcia APRN CNM Contag, Stephen A, MD Suspected abnormality affecting management of mother, single or unspecified fetus (Primary Dx); Suspected anomaly not found; Polyhydramnios affecting 03/11/2024 1:30 PM CDT Ancillary Procedure [facility] Medicine [address] [place] [phone] Jayshree Garcia APRN CNM Contag, Stephen A, MD related condition, antepartum 03/11/2024 Travel 03/10/2024 Medical Correspondence [facility] Information Management [address] [facility] [address] [place] [address] Scan, Non-Provider 03/10/2024 PRE VISIT [facility] Medicine [address] [place] [phone] Vy Piedra RN Ultrasound (L2- poly and LGA on outside US ) 03/10/2024 Transcribe Orders [facility] Maternal Medicine [facility] [address] [facility] [address] [place] [phone] Jayshree Garcia APRN CNM related condition, antepartum [...] Procedure Name Priority Date/Time Associated Diagnosis Comments M COMPREHENSIVE SINGLE Routine 03/11/2024 2:27 PM CDT related condition, antepartum LAB RESULT - [facility] SCAN 02/29/2024 12:00 AM CDT from Last 3 Months Results * [facility] US Comprehensive Single (03/11/2024 2:27 PM [...] MICHELE Study Date: 03/11/2024 1:29pm Pat. NO: [id number] Referring MD: JAYSHREE GARCIA Site: Instrument Technician Helper: Marni Elizondo RDMS : 1995 Age: 28 [...] 6 lb 15 oz EFW by Hadlock ([id number]) Head / Face / Neck Biometry: Machine Printer Hose 5.0 mm CM 7.8 mm Nasal bone 9.0 mm ANATOMY ----- The following structures appear normal: Head / Neck Cranium. Head size. Head shape. Lateral ventricles. Choroid plexus. Midline falx. Cavum septi pellucidi. Cerebellum. Cisterna magna. Parenchyma. Thalami. Vermis. Neck. Face Lips. Profile. Nose. Maxilla. Mandible. Orbits. Lens. Heart / Thorax 4-chamber view. RVOT view. LVOT view. 3-vessel view. 7-zjmumx-vkkxjwq view. Situs. Aortic arch view. Bicaval view. [...] assessment every 2 weeks and delivery at 24i6z-83y1o for mild polyhydramnios. We presume this will [...] MICHELE Study Date: 03/11/2024 1:29pm Pat. NO: [id number] Referring MD: JAYSHREE GARCIA Site: Instrument Technician Helper: Marni Elizondo RDMS : 1995 Age: 28 [...] EFW (lb,oz) 6 lb 15oz EFW by Hadlock([id number]) Head / Face / Neck Biometry: Machine Printer Hose 5.0mm CM 7.8mm Nasal bone 9.0 mm ANATOMY ----- The following structures appear normal: Head / Neck Cranium. Head size. Head shape.Lateral ventricles. Choroid plexus. Midline falx. Cavum septi pellucidi.Cerebellum. Cisterna magna. Parenchyma. Thalami. Vermis. Neck. Face Lips. Profile. Nose. Maxilla.Mandible. Orbits. Lens. Heart / Thorax 4-chamber view. RVOT view. LVOT view.3-vessel view. 1-cbhdzs-nocdxei view. Situs. Aortic arch view. Bicavalview. Ductal [...] AF assessment every 2 weeks anddelivery at 75x6t-20x7f for mild polyhydramnios. We presume this will [...] amniotic fluid volume consistent with mild polyhydramnios. us [facility] EMILY BLISS MF US ORDERABL ES Edited Result - Final * Lab Result - HIM Scan (02/29/2024 12:00 AM CDT) 02/29/2024 us Provider Outside NON-BEAKER LAB TESTING Final Result from Last 3 Months Insurance MEDICAID MD MEDICAID MD Care Teams Weatherization Operations Manager Relationship Specialty Start Date End Date Jayshree Garcia APRN CN PCP - General 03/10/24 Adalberto Plascencia MD [address] [address] Assigned OBGYN Provider 03/15/24
--- OUTSIDE RECORDS SUMMARY | 2024-05-26 08:26 | XMS_ITS | Encounter Summary ---
Author Organization [facility] Address [address] [place] [address] Care Team Providers Care Welt Beater Name Role Phone Jayshree Garcia APRN, CNM Primary Care Provi vahid Reason for Visit * Diagnostic Imaging Ultrasound (Routine) - Pending Review Specialty Diagnoses / Procedures Referred By Brandy morel Referred To Contact Radiology. Diagnoses related condition, antepartum Procedures [facility] US Comprehensive Single Jayshree Garcia APRN CNM Phone: tel: fax: Referral ID Status Reason Start Date Expiration Date V isits Requested Visits Authorized [id number] Pending Review 03/10/2024 03/10/2025 1 1 Encounter Details Date Type Department Care Team (Latest Contact Info) Description 03/11/2024 1:30 PM CDT Ancillary Procedure [facility] Maternal Medicine Center [address] [phone] [facility]ree [facility] [address] [place] [address] Adalberto Plascencia MD [address] [place] [id number] related condition, antepartum Social History Tobacco Use [...] Procedure Name Priority Date/Time Associated Diagnosis Comments [facility] US COMPREHENSIVE SINGLE Routine 03/11/2024 2:27 PM CDT related condition, antepartum documented in this encounter Results * [facility] US Comprehensive Single (03/11/2024 2:27 [...] MICHELE Study Date: 03/11/2024 1:29pm Pat. NO: [id number] Referring MD: JAYSHREE GARCIA Site: Cushion Padder: Marni Elizondo RDMS : 1995 Age: 28 [...] 6 lb 15 oz EFW by Hadlock ([id number]) Head / Face / Neck Biometry: Range Conservationist 5.0 mm CM 7.8 mm Nasal bone 9.0 mm ANATOMY ----- The following structures appear normal: Head / Neck Cranium. Head size. Head shape. Lateral ventricles. Choroid plexus. Midline falx. Cavum septi pellucidi. Cerebellum. Cisterna magna. Parenchyma. Thalami. Vermis. Neck. Face Lips. Profile. Nose. Maxilla. Mandible. Orbits. Lens. Heart / Thorax 4-chamber view. RVOT view. LVOT view. 3-vessel view. 0-ulmvkh-koigucx view. Situs. Aortic arch view. Bicaval view. [...] assessment every 2 weeks and delivery at [id number]-24b5n for mild polyhydramnios. We presume this will [...] MICHELE Study Date: 03/11/2024 1:29pm Pat. NO: [id number] Referring MD: JAYSHREE GARCIA Site: Cushion Padder: Marni ElizondoMARY : 1995 Age: 28 ----- INDICATION ----- [...] EFW (lb,oz) 6 lb 15oz EFW by Hadlock([id number]) Head / Face / Neck Biometry: Range Conservationist 5.0mm CM 7.8mm Nasal bone 9.0 mm ANATOMY ----- The following structures appear normal: Head / Neck Cranium. Head size. Head shape.Lateral ventricles. Choroid plexus. Midline falx. Cavum septi pellucidi.Cerebellum. Cisterna magna. Parenchyma. Thalami. Vermis. Neck. Face Lips. Profile. Nose. Maxilla.Mandible. Orbits. Lens. Heart / Thorax 4-chamber view. RVOT view. LVOT view.3-vessel view. 9-efdcto-tppetcy view. Situs. Aortic arch view. Bicavalview. Ductal [...] AF assessment every 2 weeks anddelivery at 11c5n-98v3e for mild polyhydramnios. We presume this will [...] fluid volume consistent with mild polyhydramnios. us Jayshree Garcia APRN, CNM IMG MFM US ORDERABL ES Edited Result - Final documented in this encounter Visit Diagnoses Diagnosis related condition, antepartum documented in this encounter Care Teams Welt Beater Relationship Specialty Start Date End Date Jayshree Garica APRN CNM PCP - General 03/10/24 documented as of this encounter
--- OUTSIDE RECORDS SUMMARY | 2024-05-26 08:26 | XMS_ITS | Encounter Summary ---
Author Organization [facility] Address [address] [place] [address] Care Team Providers Care Tip Bander Name Role Phone Jayshree Garcia APRN, CNM Primary Care Provi vahid Encounter Details Date Type Department Care Team (Late st Contact Info) Description 03/10/[address] [facility] Health Information Management [address] [facility] [address] [place] [address] Scan, Non-Provider Social History Tobacco Use Types [...] on filedocumented in this encounter Care Teams Tip Bander Relationship Specialty Start Date End Date Jayshree Garcia APRN CNM PCP - General 03/10/24 documented as of this encounter
--- OUTSIDE RECORDS SUMMARY | 2024-05-26 08:26 | XMS_ITS | Clinical Summary ---
Author Organization [facility] Address [place], [place] [address] Care Team Providers Care Marine Propulsion Technician Name Role Phone Elfego Hidalgo MD [...] (E coil) 1st trimester, asymptomatic, did not steel pickler abx rx until 15 wks. Treated with Macrobid. Normal anatomy survey. It's a girl! PSH: appy 30w6d US EFW 3 lbs 7 oz, MVP 3.9, cephalic 37w4d US EFW 7 lbs 3 oz, MVP 5.3, cephalic Resolved Problems Problem Noted Date Diagnosed Date Resolved Date Appendicitis, acute 10/09/2011 08/22/19 19 Encounters Date Type Department Care Team Description 03/29/2024 Lab Requisition [facility] [phone] Thalia Valdovinos MD from Last 3 Months Social History Tobacco [...] Comments Blood Pressure 130/72 08/23/2018 10:00 AM PLUG PASTER Pulse 60 08/23/2018 10:00 AM PLUG PASTER Temperature 36.7 C (98 F) 08/23/2018 10:00 AM PLUG PASTER Respiratory Rate 18 08/23/2018 10:00 AM PLUG PASTER Oxygen Saturation 100% 08/21/2018 5:02 PM PLUG PASTER Inhaled Oxygen Concentration - - Weight 71.8 kg (158 lb 4.6 oz) 08/21/2018 6:36 A M PLUG PASTER Height 167.6 cm (5' 6) 08/21/2018 6:36 AM PLUG PASTER Body Mass Index 25.55 08/21/2018 6:36 AM PLUG PASTER Plan of Treatment Health Maintenance Due Date Last Done Comments Tdap 11/07/2006 Depression screening for age 12+ 2007 HIV for age 15-65 11/07/2010 BMI (ht and wt on same day) for age 18+ 11/07/2013 Hepatitis C screening for ag e 18-79 11/07/2013 Tetanus booster 2015 Pap test for age 21-65 11/07/2016 COVID-19 vaccine series ( season) 2024 Influenza for age 9-49 02/22/2024 Pneumococcal series for age 6-64 Aged Out No longer eligible based on patient's age to complete this topic Procedures Procedure Name Priority Date/Time Associated Diagnosis Comments LAB TRACKING EVENT Routine 03/29/2024 9: 55 AM CDT PATH TISSUE EXAM PLACENTA Routine 03/29/2024 9:55 AM CDT from Last 3 Months Results * LAB TRACKING EVENT (03/29/2024 9:55 AM CDT) Other (Other) Client Collect / Unknown 03/29/2024 9:55 AM CDT 03/29/2024 10:06 PM CDT Thalia Valdovinos MD LAB BILL O NLY [facility] [address] [place] [address], * PATH TISSUE EXAM PLACENTA (03/29/2024 9:55 AM CDT) Case Report Pathology Report Case: [id number] Authorizing Provider: Thalia Valdovinos Collected: 03/29/2024 0955 MD Scarlet Ordering Location: [facility] Received: 03/30/2024 0841 Pathologist: Josep Okeefe MD Specimen: Placenta 03/31/2024 3:37 PM CDT [facility]AL LABORATORY Final Diagnosis A) PLACENTA, DELIVERY: 1. Third trimester tarango placenta with the following characteristics: a. Weight: 359 grams (39 week 10-90th percentile weight range, 426 - 611 grams) b. Membranes/ surface: Negative for chorioamnionitis c. Umbilical cord: Three vessel cord Negative for funisitis d. Disc/Villi: Chorionic villi consistent with gestational age Negative for villitis Placental disc without infarcts e. Decidua/basal plate: No diagnostic abnormalities identified 03/31/2024 3:37 PM CDT [facility] LABORATORY-C ENTRAL LABORATORY Clinical Information Indications for Placental Examination by Pathology Maternal indications: Infection during Infectious specimen (e.g. maternal HIV or HCV): No Clinical information: Date of delivery: 03/29/2024 Time of delivery: 0955 Type of delivery: Live born:Yes Gestational age: 39.1 weeks weight of infant(s): 3460 grams Sex of (s): Male Pertinent Maternal History: Maternal parity: Diabetes: No Hypertension: No Eclampsia: No Smoking: No 03/31/2024 3:[address] [facility] Gross Description A) Received fresh labeled with the patient's name and placenta, is a 359 gram, 14.5 x 13.5 x 3.2 cm tarango placenta. The surface is blue-lord with normal vasculature. The 47.0 cm long, 1.3 cm diameter trivascular umbilical cord is eccentrically inserted 5.1 cm from the nearest edge of the placental plate. The umbilical cord averages 3 turns per 10 cm with no true knots or thrombi identified. The extraplacental membranes are campa-pink, smooth, glistening with circummarginate insertion. The maternal surface is complete with red-brown, uniform cotyledons and less than 5% calcifications. Sectioning reveals dark red, spongy parenchyma with no lesions or masses identified. Plumbing Contractor sections are submitted: 1. membranes and insertion 2. Umbilical cord 3. Central section of placental parenchyma with umbilical cord insertion, full-thickness, bisected 4. Central section of placental parenchyma, full-thickness, bisected 5. Central section of placental parenchyma, full-thickness, bisected Time and date in formalin: 1020 on 03/30/2024 JKT 03/30/2024 03/31/2024 3:37 PM CDT [facility] ENTRAL LABORATORY Microscopic Description The final diagnosis is based on microscopic examination of appropriate sections of all specimens. 03/31/2024 3:37 PM CDT [facility] Additional Information Interpreted at [email or web address], Central Laboratory - [address], [place] [address] 03/31/2024 3:37 PM CDT [facility] ENTRAL LABORATORY Tissue SPECIMEN FROM PLACENTA / Unknown 03/29/2024 9:55 AM CDT 03/30/2024 8:41 AM CDT Thalia Valdovinos MD PATHOLOGY/ CYTOLOGY [facility] LABORATORY [address] [place] [address], [place] from Last 3 Months Advance Directives * Full Code (Latest Code Status on File) Date Activated Date Inactivated Comments 08/21/2018 6:45 AM 08/23/2018 1:19 PM Question Answer Comments Code Status Discussion: Discussed * Full Code Date Activated Date Inactivated Comments 10/09/2011 7:44 AM 10/10/2011 12:34 AM Care Teams Marine Propulsion Technician Relationship Specialty Start Date End Date Elfego Hidalgo MD [address] [place] [address] PCP - General Family Practice 11/14/21
--- OUTSIDE RECORDS SUMMARY | 2024-05-26 08:26 | XMS_ITS | Encounter Summary ---
Author Organization [facility] Address [address] [place] [address] Care Team Providers Care Print Graphic Designer Name Role Phone Jayshree Garcia APRN, CNM Primary Care Provi vahid Reason for Referral * Diagnostic Imaging Ultrasound (Routine) - Pending Review Specialty Diagnoses / Procedures Referred By Brandy morel Referred To Contact Radiology. Diagnoses related condition, antepartum Procedures [facility] US Comprehensive Single Jayshree aGrcia APRN CNM Phone: tel: fax: Referral ID Status Reason Start Date Expiration Date V isits Requested Visits Authorized [id number] Pending Review 03/10/2024 03/10/2025 1 1 * Consultation (Priority: 1-2 Weeks) - Pending Review Specialty Diagnoses / Procedures Referred By Brandy morel Referred To Contact Diagnoses related condition, antepartum Jayshree Garcia APRN CNM Phone: tel: fax: [facility] [place] [address] [place] [address] Phone: tel: fax: Referral ID Status Reason Start Date Expiration Date V isits Requested Visits Authorized [id number] Pending Review 03/10/2024 03/10/2025 1 1 Question Answer Preferred Location: [facility] [place] JOAQUÍN 04/04/2024 Ultrasound Comprehensive US (>than 18 [...] Consultation No Genetic Counseling Consultation: No fax [facility] - Jayshree Garcia - ([phone]) Comments There is no height or weight [...] st Contact Info) Description 03/10/2024 Transcribe Orders [facility] [place] [address] [place] [id number] Jayshree Garcia APRN CNM [facility] [address] [place] [address] related condition, antepartum (Primary Dx) Social History [...] documented as of this encounter Results * M [facility] (03/11/2024 2:27 PM CDT) Anatomical Region Laterality [...] MICHELE Study Date: 03/11/2024 1:29pm Pat. NO: [id number] Referring MD: JAYSHREE GARCIA Site: Stacker: Marni Elizondo RDMS : 1995 Age: 28 [...] 6 lb 15 oz EFW by Hadlock ([id number]) Head / Face / Neck Biometry: City Jailer 5.0 mm CM 7.8 mm Nasal bone 9.0 mm ANATOMY ----- The following structures appear normal: Head / Neck Cranium. Head size. Head shape. Lateral ventricles. Choroid plexus. Midline falx. Cavum septi pellucidi. Cerebellum. Cisterna magna. Parenchyma. Thalami. Vermis. Neck. Face Lips. Profile. Nose. Maxilla. Mandible. Orbits. Lens. Heart / Thorax 4-chamber view. RVOT view. LVOT view. 3-vessel view. 6-rhqybx-dirmino view. Situs. Aortic arch view. Bicaval view. [...] assessment every 2 weeks and delivery at 10f5d-71q3a for mild polyhydramnios. We presume this will [...] MICHELE Study Date: 03/11/2024 1:29pm Pat. NO: [id number] Referring MD: JAYSHREE GARCIA Site: Stacker: Marni Elizondo RDMS : 1995 Age: 28 [...] dating based on the LMP, selected on 436w + 4 d 04/04/2024 GENERAL EVALUATION ----- [...] EFW (lb,oz) 6 lb 15oz EFW by Hadlock([id number]) Head / Face / Neck Biometry: City Jailer 5.0mm CM 7.8mm Nasal bone 9.0 mm ANATOMY ----- The following structures appear normal: Head / Neck Cranium. Head size. Head shape.Lateral ventricles. Choroid plexus. Midline falx. Cavum septi pellucidi.Cerebellum. Cisterna magna. Parenchyma. Thalami. Vermis. Neck. Face Lips. Profile. Nose. Maxilla.Mandible. Orbits. Lens. Heart / Thorax 4-chamber view. RVOT view. LVOT view.3-vessel view. 6-jqakeh-ugmkfqp view. Situs. Aortic arch view. Bicavalview. Ductal [...] AF assessment every 2 weeks anddelivery at 18f2a-65c3a for mild polyhydramnios. We presume this will [...] mild polyhydramnios. us Jayshree Garcia APRN, CNM [facility] Result - Final documented in this encounter Visit Diagnoses Diagnosis related condition, antepartum- Primary related condition, antepartum documented in this encounter Care Teams Print Graphic Designer Relationship Specialty Start Date End Date Jayshree Garcia APRN CNM PCP - General 9/18/24 documented as of this encounter
--- OUTSIDE RECORDS SUMMARY | 2024-05-26 08:26 | XMS_ITS | Referral Summary ---
Author Organization [facility] Address [address] [place] [address] Care Team Providers Care Landfill Attendant Name Role Phone Elsewhere, Pcp Primary Care Provider Unavailabl e Source Comments Patient records contain information from all sites at [facility]. For routine questions regarding patient records, call [phone] during business hours, M-F 8:00 AM - 5:00 PM Central Time. Record requests for emergency care only can be directed to [phone] at any time.[facility] Allergies No known active allergies Medications fluconazole (DIFLUCAN) 150 mg tablet Take 1 tablet (150 mg total) by mouth See Admin Instructions. Take one tab now. Repeat in 7 days if symptoms persist. 2 tablet 3 Active Additional Information Patient not taking.Reported on 04/21/2023 terbinafine (LamISIL) 1 % cream Apply 1 Application topically 2 (two) times a day. Apply to affected areas. 30 g 3 Active ketoconazole (NIZORAL) 2 % creamIndication s:Candidiasis Skin Apply 1 Application topically 2 (two) times a day. 60 g 3 Active triamcinolone (KENALOG) 0.1 % creamIndication s:Candidiasis Skin Apply to affected area 1-2 times daily as needed. Avoid face and groin. 30 g 3 Active Active Problems No known active problems Resolved Problems Problem Noted Date Diagnosed Date Resolved Date Uterine Size Date Discrepancy Third Trimester 08/13/19 19 09/28/2018 Encounter For Supervision Of Other Normal Unspecified Trimester 02/16/2018 09/29/19 19 Overview (08/13/2018): G1 Rubella equivocal, needs MMR A+ UTI (E coil) 1st trimester, asymptomatic, did not sisal picker abx rx until 15 wks. Treated [...] often do you attend chur ch or adventism services? 1 to 4 times per year 06/12/2021 Do you belong to any clubs o r organizations such as nondenominational groups, unions, fraternal or athletic groups, or [...] Answer Date Recorded PHQ-2 Score 0 11/29/2021 [facility] [employer] of Occupat ional Health - Occupational Stress [...] place to sleep or slept in a nursing home (including now)? No 06/12/2021 Nutrition Answer Date [...] have received? 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 Not on file Not on file Last Filed Vital Signs Vital Sign Reading Time Taken Comments Blood Pressure 114/72 04/25/2023 5:18 PM CDT Pulse 102 04/25/2023 5:18 PM CDT Temperature 36.7 C (98 F) 04/25/2023 5:18 PM CDT Respiratory Rate 20 [...] GENOTYPING, PCR, THINPREP Routine 05/11/2021 4:26 PM CARPENTER RAILCAR HIV-1/-2 AG AND AB SCRN, PLASMA Routine 04/19/2021 10:48 AM CDT Encounter For Supervision Of Other Normal Unspecified Trimester CHLAMYDIA/GONORRHOE AE AMPLIFIED RNA Routine 02/16/2018 3:05 PM CDT Encounter For Supervision Of Other Normal Unspecified Trimester from Last 3 Months or Most Recently Relevant to Health Maintenance Results * HPV with Genotyping, PCR, ThinPrep (05/11/2021 4:26 PM CARPENTER RAILCAR) HPV with Genotyping, ThinPrep, PCR Negative Negative 05/14/2021 5:50 PM CARPENTER RAILCAR MKTO Comment: Negative for high risk HPV by nucleic acid amplification. The following high risk HPV types were not detected: 16, 18, 31, 33, 35, 39, 45, 51, 52, 56, 58, 59, 66, and 68 Varies 05/11/2021 4:26 PM CARPENTER RAILCAR 05/14/2021 6:41 AM CARPENTER RAILCAR us Elfego Hidalgo M.D. LAB MICROBIOLOGY - GENER AL ORDERABLES Final Result [facility] [address] [place] [address], [facility] MKTO [facility] [place] [address] * HIV-1/-2 Ag and Ab Scrn, Plasma [...] Hidalgo M.D. LAB MICROBIOLOGY - BLOOD ORDERABLES Final Result [facility] [address] [place] [address], [facility] [place] [address] [place] [address] * Chlamydia / gonorrhoeae Amplified RNA (02/16/2018 3:05 PM CDT) Source VAGINA 02/17/2018 11:14 AM CDT [facility] Chlamydia trachomatis amplified RNA Negative Negative 02/17/2018 11:14 AM CDT [facility] Comment: ----ADDITIONAL INFORMATION---- This report is intended for use in clinical monitoring and management of patients. It is not intended for use in medical-legal applications. Source VAGINA 02/17/2018 11:14 AM CDT [facility] Neisseria gonorrhoeae amplified RNA Negative Negative 02/17/2018 11:14 AM CDT [facility] Comment: ----ADDITIONAL INFORMATION---- This report is intended for use in clinical monitoring and management of patients. It is not intended for use in medical-legal applications. Varies (Vagina) 02/16/2018 3 :05 PM CDT 02/16/2018 11:23 PM CDT Matheus Merritt M.D. LAB MICROBIOLOGY - GENERAL ORDERABLES Final Result [facility] [address] [place] [address], [facility] from Last 3 Months or Most Recently Relevant to Health Maintenance Insurance [facility] [address] [facility] [address] [place] [id number] Care Teams Landfill Attendant Relationship Specialty Start Date End Date Elsewhere, Pcp PCP - General Internal Medicine 11/21/21
--- OUTSIDE RECORDS SUMMARY | 2024-05-26 08:26 | XMS_ITS | Encounter Summary ---
Author Organization [facility] Address [address] [place] [address] Care Team Providers Care Entry Level Project Engineer Name Role Phone Jayshree Garcia APRN, CNM [...] on filedocumented in this encounter Care Teams Entry Level Project Engineer Relationship Specialty Start Date End Date Jayshree Garcia APRN CNM PCP - General 03/10/24 documented as of this encounter
--- OUTSIDE RECORDS SUMMARY | 2024-05-26 08:26 | XMS_ITS | Clinical Summary ---
Author Organization [facility] Address [address] [place] [address] Care Team Providers Care Tack Maker Name Role Phone Elsewhere, Pcp Primary Care Provider Unavailabl e Source Comments Patient records contain information from all sites at [facility]. For routine questions regarding patient records, call [phone] during business hours, M-F 8:00 AM - 5:00 PM Central Time. Record requests for emergency care only can be directed to [phone] at any time.[facility] Allergies No known active allergies Medications fluconazole [...] (E coil) 1st trimester, asymptomatic, did not black pickler abx rx until 15 wks. Treated [...] 09/24/2021,06/10/2018,01/04/2008 TISHA 01/04/2008,05/13/2001 influenza trivalent LAIV (Na madei) (2 years through 49 years) 04/10/2009 influenza [...] How often do you attend chur or adventism services? 1 to 4 times per year 06/12/2021 Do you belong to any clubs o r organizations such as bahai groups, unions, fraternal or athletic groups, or [...] Answer Date Recorded PHQ-2 Score 0 11/29/2021 [facility] [employer] of Occupat ional Health - Occupational Stress [...] place to sleep or slept in a retirement (including now)? No 06/12/2021 Nutrition Answer Date [...] Sex Assigned at Female 05/06/2018 3:40 PM ADMINISTRATIVE DIETITIAN Legal Sex Female 10:07 PM ADMINISTRATIVE DIETITIAN Gender Identity Female 05/06/2018 3:40 PM ADMINISTRATIVE DIETITIAN Sexual Orientation Straight 05/06/2018 3: 40 PM ADMINISTRATIVE DIETITIAN Occupation Industry Job Start Date Job End [...] 2024 Influenza Vaccine (#1) 2024 07/05/2009, 2008 Cervical/Vaginal Cancer Screening 05/11/2024 05/11/2021, 05/11/2021, 02/16/2018 DTaP,Tdap,and Td Vaccines (10 - Td or Tdap) 09/25/2031 09/24/2021, 06/10/2018, 01/04/2008, Additional history exists Hepatitis B Vaccines Completed 12/01/1996, 06/28/1996, 05/24/1996 IPV Vaccines Completed 10/08/2000, 09/21, 05/24/1996, Additional history exists Chlamydia and Gonorrhea Screening Discontinued 02/16/2018 HIV Screening Completed 04/19/2021, 02/16/2018 HPV Vaccines Aged Out No longer eligi ble based on patient's age to complete this topic Pneumococcal vaccine (0-64 years) Aged Out No longer eligible based on patient's age to complete this topic Procedures Procedure Name Priority Date/Time Associated Diagnosis Comments HPV WITH GENOTYPING, PCR, THINPREP Routine 05/11/2021 4:26 PM ADMINISTRATIVE DIETITIAN HIV-1/-2 AG AND AB SCRN, PLASMA Routine 04/19/2021 10:48 AM CDT Encounter For Supervision Of Other Normal Unspecified Trimester CHLAMYDIA/GONORRHOE AE AMPLIFIED RNA Routine 02/16/2018 3:05 PM CDT Encounter For Supervision Of Other Normal Unspecified Trimester from Last 3 Months or Most Recently Relevant to Health Maintenance Results * HPV with Genotyping, PCR, ThinPrep (05/11/2021 4:26 PM ADMINISTRATIVE DIETITIAN) HPV with Genotyping, ThinPrep, PCR Negative Negative 05/14/2021 5:50 PM ADMINISTRATIVE DIETITIAN MKTO Comment: Negative for high risk HPV by nucleic acid amplification. The following high risk HPV types were not detected: 16, 18, 31, 33, 35, 39, 45, 51, 52, 56, 58, 59, 66, and 68 Varies 05/11/2021 4:26 PM ADMINISTRATIVE DIETITIAN 05/14/2021 6:41 AM ADMINISTRATIVE DIETITIAN us Elfego Hidalgo M.D. LAB MICROBIOLOGY - GENER AL ORDERABLES Final Result [facility] [address] [place] [address], [facility] [place] [address] * HIV-1/-2 Ag and Ab Scrn, Plasma [...] LAB MICROBIOLOGY - BLOOD ORDERABLES Final Result [facility] [address] [place] [address], [facility] in [address] [address] * Chlamydia / gonorrhoeae Amplified RNA (02/16/2018 3:05 PM CDT) Source VAGINA 02/17/2018 11:14 AM CDT [facility] Chlamydia trachomatis amplified RNA Negative Negative 02/17/2018 11:14 AM CDT [facility] Comment: ----ADDITIONAL INFORMATION---- This report is intended for use in clinical monitoring and management of patients. It is not intended for use in medical-legal applications. Source VAGINA 02/17/2018 11:14 AM CDT [facility] Neisseria gonorrhoeae amplified RNA Negative Negative 02/17/2018 11:14 AM CDT [facility] Comment: ----ADDITIONAL INFORMATION---- This report is intended for use in clinical monitoring and management of patients. It is not intended for use in medical-legal applications. Varies (Vagina) 02/16/2018 3 :05 PM CDT 02/16/2018 11:23 PM CDT Matheus Merritt M.D. LAB MICROBIOLOGY - GENERAL ORDERABLES Final Result [facility] [address] [place] [address], [facility] from Last 3 Months or Most Recently Relevant to Health Maintenance Insurance [facility] [address] [id number] Care Teams Tack Maker Relationship Specialty Start Date End Date Elsewhere, Pcp PCP - General Internal Medicine 11/21/21
--- OUTSIDE RECORDS SUMMARY | 2024-05-26 08:26 | XMS_ITS ---
Author Organization [facility] Address [address] [place] [address] Care Team Providers Care Electro Optical Engineer Name Role Phone Unavailable Unavailable Unavailable Surgery Details Not on file Complications Check Surgery Details section. Procedure Estimated Blood Loss Check Surgery Details section. Procedure Findings Check Surgery Details section. Procedure Specimens Taken Check Surgery Details section.
--- OUTSIDE RECORDS SUMMARY | 2024-05-26 08:26 | XMS_ITS | Encounter Summary ---
Author Organization [facility] Address [facility] [place] [address] Care Team Providers Care Brokerage Purchase And Sale Clerk Name Role Phone Jayshree Garcia APRN [facility] Primary Care Provi vahid Reason for Visit * Reason Comments Ultrasound L2 for polyhydramnio s and LGA on outside scan Encounter Details Date Type Department Care Team (Late st Contact Info) Description 03/11/2024 2:00 PM CDT Office Visit [facility] [address] [place] [phone] Jayshree Garcia APRN [facility] [address] [place] [address] Adalberto Plascencia MD [address] [place] [address] [address] [place], [place] [address] Suspected abnormality affecting management of mother, single [...] a at 36w4d who presents to [facility] for a comprehensive ultrasound. Pt reports positive [...] affecting documented in this encounter Care Teams Brokerage Purchase And Sale Clerk Relationship Specialty Start Date End Date Jayshree Garcia APRN CNM PCP - General 03/10/24 documented as of this encounter
--- OUTSIDE RECORDS SUMMARY | 2024-05-26 08:26 | XMS_ITS | Encounter Summary ---
Author Organization [facility] Address [address] [place] [address] Care Team Providers Care Machine Stapler Name Role Phone Jayshree Garcia APRN, CNM Primary Care Provi vahid Reason for Visit * Reason Comments Ultrasound L2- poly and LGA on outside US Encounter Details Date Type Department Care Team (Late st Contact Info) Description 03/10/2024 PRE VISIT [facility] [address] [phone] Vy Piedra RN Ultrasound (L2- [...] on filedocumented in this encounter Care Teams Machine Stapler Relationship Specialty Start Date End Date Jayshree Garcia APRN CNM PCP - General 03/10/24 documented as of this encounter
== END 2024-05-26 08:25 | disposition home or self-care (01) ==
LOC: US 08:24
PROVIDERS: Visit Provider Registered Nurse
DX: N63.10 Unspecified lump in the right breast, unspecified quadrant (principal)
CPT/HCPCS: 76642